=== PATIENT | male | born 1950 | race Caucasian/White ===

== ENCOUNTER 2016-04-19 10:19 | Inpatient (IN) ==
[2016-04-19 10:51] LABS: Basophils % 0.3 % (0.0-0.8); Eosinophils # 0.1 10*3/uL (0.0-0.87); Eosinophils % 0.6 % (0.00-10.9); Hematocrit 48.2 VOL% (42.0-52.0); Hemoglobin 15.9 GM/DL (14.0-18.0); Immature Granulocytes % 0.6 %; Immature Granulocytes Absolute 0.05 #; Lymphocytes # 2.2 10*3/uL (1.4-4.0); Lymphocytes % 24.7 % (21.2-54.2); Mean Corpuscular Hemoglobin 31 PG (27-34); Mean Corpuscular Volume 93.1 FL (87-102); Mean Platelet Volume 11.6 FL (9.6-12.0); Monocytes # 0.6 10*3/uL (0.11-0.8); Monocytes % 6.7 % (1.7-12.7); Neutrophils # 6.1 10*3/uL (1.4-7.4); Neutrophils % 67.1 % (38.7-73.9); Platelet Count 239 10*3/uL (130-400); Red Blood Count 5.18 10*6/uL (3.8-5.5); Red Cell Distribution Width 12.2 % (9.3-17.3); White Blood Count 9.1 10*3/uL (4.5-13.71)
[2016-04-19 11:12] LABS: Alanine Aminotransferase 39 U/L (16-61); Albumin 3.7 G/DL (3.4-5.0); Alkaline Phosphatase 68 U/L (45-117); Aspartate Amino Transferase 19 U/L (0-37); Blood Urea Nitrogen 8 MG/DL (7-18); Calcium 8.7 MG/DL (8.5-10.1); Glucose 317 MG/DL (74-106); Osmolality,Calculated 286.5 MOS/KG (273-304); Potassium 3.8 MMOL/L (3.5-5.1); Sodium 139 MMOL/L (136-145); Total Protein 6.4 G/DL (6.4-8.3); Troponin I Only < 0.015 NG/ML (0.00-0.045)
--- NOTE | 2016-04-19 11:13 | XRay Report ---
History short of breath The heart is mildly enlarged with mild upper lobe vascular prominence and minimal Hola B line in the lung bases No consolidative infiltrate is seen Impression: Minimal interstitial edema PROCEDURE INTERPRETED AT [facility] [place] DEPARTMENT OF RADIOLOGY Final Report Signed by: Dr. Earnestine Strickland
--- NOTE | 2016-04-19 11:50 | EKG Report ---
Stationary ECG Study [facility] ER Test Date: 04/19/2016 10:25:20 AM Pat Name: QUINTIN NORTON Department: Room: Gender: M Electrical Cad Designer: LIBAN : 1950 Requested by: Awais Booth Order Number: [id number] Reading MD: ANUJA PANTOJA Intervals [place] Rate: 138 P: 999 MN: 0 QRS: -18 QRSD: 99 T: 0 QT: 181 QTc: 262 Interpretive Statements ATRIAL FIBRILLATION WITH RAPID VENTRICULAR RESPONSE ANTEROSEPTAL MYOCARDIAL INFARCTION, OF INDETERMINATE AGE Electronically Signed On 04-19-16 17:57:18 OCEAN FISHING GUIDE by ANUJA PANTOJA [id number]
--- NOTE | 2016-04-19 12:05 | Emergency Department Note ---
Elicia Thompson [place], am scribing for, and in the presence of, Awais Booth Jr., MD 10:47. Leobardo Thompson Marvin Jr., MD, personally performed the services described in this documentation, ascribed by Jaret Rubi in my presence, and it is both accurate and complete . Arrival - Arrival Chief Complaint: Shortness of Breath ED Nursing Triage Note: c/o sob and a fib Mode of Arrival: Stretcher Limitations: No Limitations Source: Patient - History of Present Illness HPI Narrative: This is a 65 y/o male presenting to the ED with c/o SOB and atrial fibrillation. He states he has become increasingly SOB over the course of 5 months. Pt had a CT back in 2007 and had stents placed. He has not followed up with a automotive shop foreman in several years and he does not have a PCP. Pt has pedal edema and states this is the first time this has happened. Pt denies fever, chills, nausea, vomiting, diarrhea, abdominal pain, cough, and wheezing. He is currently a daily smoker and drinks occasionally. Consistency: constant Severity: moderate Allergies/Adverse Reactions: Allergies Allergy/AdvReac Type Severity Reaction Status Date / Time No Known Allergies Allergy Unverified 04/19/16 10:26 Home Medications: Home Medications Medication Instructions Recorded Confirmed Type No Known Home Medications [No 04/19/16 04/19/16 History Known Home Medications] Review of System - Review of System 12 point system: reviewed and no additional remarkable complaints except as stated - Review of System Constitutional: Absent: chills, fever, weakness Eyes: Absent: vision change Head/Ears/Nose/Throat: Absent: earache, nasal drainage Respiratory: Present: cough, wheezing Cardiovascular: Present: dyspnea on exertion. Absent: chest pain, syncope Gastrointestinal: Absent: abdominal pain, nausea, vomiting, diarrhea Genitourinary male: Absent: dysuria Musculoskeletal: Absent: arm pain, back pain Skin: Absent: rash Neurological: Absent: headache, weakness, numbness, confusion, abnormal gait, vertigo Psychiatric: Absent: anxiety Endocrine: Absent: fatigue Allergic/Immunologic: Absent: facial swelling Medical,Surgical,& Family Hx - Medical History Cardio: History of: CT (2007, patient had 2 stents placed at [facility]) - Surgical History Cardiac Surgeries: Sugical HX of: Cardiac Catheterization (2 stents) - Social History Smoking Status: Smoker, status unknown Frequency of Alcohol Use: Occasionally Type of Drug Use: None Exam Physical Examination: General: Well-developed well-nourished, no apparent distress. Head: Normocephalic, atraumatic. Eyes: PERRLA, EOMI. Nose: No obvious acute deformities or discharge. Mouth: No obvious acute injury. Neck: Full range of motion without obvious pain. No midline tender to palpation. Lymphatic: no significant lymphadenopathy noted. Lungs: Mild wheezing noted on exploration, no respiratory distress, Heart: Tachycardia and irregular Peripheral vascular: Moderate pitting edema noticed to the thighs bilaterally Abdomen: Soft nontender, nondistended, normal active bowel sounds. Skin: No obivous acute lesions noted Musculoskeletal: No gross deformities. Neurological: No focal findings, cranial nerves II through XII grossly normal. Psychiatric: Appropriate mood.. : Deferred Vital Signs: Vital Signs Temperature 96.7 F L 04/19/16 10:22 Pulse Rate 130 H 04/19/16 10:25 Respiratory Rate 22 04/19/16 10:25 Blood Pressure 123/103 04/19/16 10:22 O2 Sat by Pulse Oximetry 94 L 04/19/16 10:22 Course Course Narrative: Differential diagnoses, atrial fibrillation with congestive heart failure. Patient says this shortness of breath this been going on for several months. He was not even aware that his heart has been going fast. He has not been following up with any doctors., Other differential diagnosis would include pulmonary edema, reactive airway disease, COPD - Reevaluation(s) Reevaluation #1: Chest x-ray shows minimal pulmonary edema and no cardiomegaly. Workup for cardiac has been negative with the exception of atrial fibrillation with RVR. We'll discuss with the automotive shop foreman about what to do. I recommended admission. Time: 12:00 Reevaluation #2: I discussed this patient with Dr. Steven who accepts patient for admission. He said to give him 10 mg of diltiazem IV and then started him on an infusion of 5 mg per hour and let the nurses titrate it. Time: 12:04 Results - Labs CBC & BMP: 04/19/16 10:29 04/19/16 10:29 Lab Results: I have reviewed the patients labs Labs: Laboratory Tests 04/19/16 10:29 Chloride 96 L Carbon Dioxide 33 H Glucose 317 H Laboratory Tests 04/19/16 04/19/16 10:29 10:29 WBC 9.1 RBC 5.18 Hgb 15.9 Hct 48.2 MCV 93.1 MCH 31 MCHC 33.0 RDW 12.2 Plt Count 239 MPV 11.6 Neut % (Auto) 67.1 Lymph % (Auto) 24.7 Morgan % (Auto) 6.7 Eos % (Auto) 0.6 Baso % (Auto) 0.3 Neut # (Auto) 6.1 Lymph # (Auto) 2.2 Morgan # (Auto) 0.6 Eos # (Auto) 0.1 Baso # (Auto) 0.0 Immature Gran % 0.6 Nucleated RBC % 0.0 Immature Gran # 0.05 Nucleated RBCs # 0.00 Sodium 139 Potassium 3.8 Anion Gap 13.8 BUN 8 Creatinine 0.80 GFR Calculation 116 BUN/Creatinine Ratio 10.00 Calculated Osmolality 286.5 Calcium 8.7 Total Bilirubin 0.80 AST 19 ALT 39 Alkaline Phosphatase 68 Troponin I < 0.015 Total Protein 6.4 Albumin 3.7 Globulin 2.7 Albumin/Globulin Ratio 1.3 - EKG EKG results: interpreted by ERMD (C EKG, per me, heart rate 138, tachycardia, irregular heartbeat, no obvious P waves, narrow complex QRS complexes with no obvious acute ST changes. Impression atrial fibrillation with RVR) EKG shows: atrial fibrillation - Diagnostic Findings Procedure: Chest x-ray: report reviewed by me, image reviewed by me (minimal interstital edema, I personally reviewed the chest x-ray and agree ) Disposition Clinical Impression: New onset atrial fibrillation, Congestive heart failure, Hyperglycemia Case discussed with: patient, patient's family Disposition: Still a Patient Condition: Stable Time of Disposition: 12:05
[2016-04-19] MEDS ORDERED: DILTIAZEM 50 MG/10 ML VIAL IV STA ×2 (13:18→13:44)
[2016-04-19] MEDS ORDERED: DILTIAZEM 100 MG VIAL.ADD IV ONE (13:20)
[2016-04-19] MEDS ORDERED: SODIUM CHLORIDE 0.9% 100 ML IV ONE (13:20)
[2016-04-19] MEDS ORDERED: DILTIAZEM 50 MG/10 ML VIAL IV ONE (13:20)
[2016-04-19] MEDS: DILTIAZEM INJ 100 MG in SODIUM CHLORIDE 0.9% 100 ML IV SCH (13:31)
[2016-04-19] MEDS ORDERED: MAGNESIUM SULF RIDER 2 GM in PREMIX 1 EACH IV PRN (13:44)
[2016-04-19] MEDS ORDERED: DILTIAZEM INJ 100 MG in SODIUM CHLORIDE 0.9% 100 ML IV SCH (13:44)
[2016-04-19] MEDS ORDERED: MAGNESIUM SULF RIDER 4 GM in PREMIX 1 EACH IV PRN (13:44)
[2016-04-19] MEDS ORDERED: ONDANSETRON 4 MG/2 ML VIAL IV PRN (13:44)
[2016-04-19] MEDS ORDERED: DEXTROSE 50% 25 GM/50 ML VIAL IV PRN (13:44)
[2016-04-19] MEDS ORDERED: GLUCAGON 1 MG VIAL IM PRN (13:44)
[2016-04-19] MEDS: SPIRONOLACTONE 50 MG TABLET PO SCH (16:40)
[2016-04-19] MEDS: ASCORBIC ACID 500 MG TABLET PO SCH ×2 (16:40→21:04)
[2016-04-19] MEDS: INSULIN REGULAR 100 UNIT/ML SUBCUT SCH ×2 (17:44→21:04)
[2016-04-19] MEDS: ALBUTEROL/IPRATROPIUM 3 ML NEB RESP TX PRN (17:51)
[2016-04-20 05:45] LABS: Calcium 8.5 MG/DL (8.5-10.1); Magnesium 2.4 MG/DL (1.8-2.4); Osmolality,Calculated 287.7 MOS/KG (273-304); Potassium 3.7 MMOL/L (3.5-5.1)
[2016-04-20] MEDS: DILTIAZEM INJ 100 MG in SODIUM CHLORIDE 0.9% 100 ML IV SCH ×2 (07:45→15:40)
[2016-04-20] MEDS: ALBUTEROL/IPRATROPIUM 3 ML NEB RESP TX PRN ×2 (08:08→15:47)
[2016-04-20] MEDS: SPIRONOLACTONE 50 MG TABLET PO SCH (09:11)
[2016-04-20] MEDS: ASCORBIC ACID 500 MG TABLET PO SCH ×2 (09:11→20:20)
[2016-04-20] MEDS: INSULIN REGULAR 100 UNIT/ML SUBCUT SCH ×4 (09:11→20:20)
--- NOTE | 2016-04-20 11:27 | Cardiology History & Physical ---
Assessment and Plan (1) New onset atrial fibrillation Status: Acute Assessment and plan: 65-year-old male, history of remote AR, diabetes, was not recently. He presented with A. fib/RVR, for unknown duration. CHF, mild respiratory insufficiency, wheezing. -AF/RVR. Start metoprolol 50 mg twice a day. Wean Cardizem drip, once resting HR <110. -start Eliquis 5 mg bid. CHADSVASC 5. PPI. No h/o significant bleeding issues. -Echo -start ASA, statin for h/o CAD, AR -Check lipids, HbA1c. Start lisinopril 5 mg. Follow BMP/Mg -Plan for MIKEY/DCCV in AM if does not convert to SR. Discussed risks/benefits of managment options -cont nebs, still wheezes. I suspect COPD -card rehab consult, smoking cessation -SW consult. Has no insurance. Current Visit: Yes (2) Wheezing Status: Acute Current Visit: Yes (3) Congestive heart failure Status: Acute Current Visit: Yes (4) Hyperglycemia Status: Acute Current Visit: Yes History of Present Illness Chief complaint: AF/RVR History of present illness: Mr. Morgan is a 65 year old male with a history of remote AR, no documentation availabe, diabetes. He has not seen a physician in the last years, due to lack of insurance. He is a retired ditch worker. He noticed progressive lower extremity swelling, shortness of breath, dyspnea exertion for the past several weeks. This progressed to the point, where had to come to the emergency room for evaluation. He was in AF/RVR. Iv. cardizem was started. He denies CP. Did not snore up until a few months ago. He also has diabetes, was not watching blood sugars and he was not taking medications for that. He is a smoker. He also has a history of asthma, was not taking any inhalers. There is no documented COPD. Home Medications Medication Instructions Recorded Confirmed Type No Known Home Medications [No 04/19/16 04/19/16 History Known Home Medications] Allergies Allergy/AdvReac Type Severity Reaction Status Date / Time No Known Allergies Allergy Unverified 04/19/16 10:26 12 point system: reviewed and no additional remarkable complaints except as stated Medical,Surgical,& Family Hx - Medical History Cardio: History of: AR (2007, patient had 2 stents placed at [facility]) Endocrine: History of: Diabetes Mellitus (NIDDM) Respiratory: History of: Asthma - Surgical History Cardiac Surgeries: Sugical HX of: Cardiac Catheterization (2 stents) - Family History Family History: Reports;: Family Stroke (mother and father) - Social History Smoking Status: Smoker, status unknown Frequency of Alcohol Use: Occasionally Type of Drug Use: None Cardiology Physical Exam - Constitutional Vitals: Vital Signs Temp Pulse Resp BP Pulse Ox 97.9 F 101 H 20 122/74 95 04/20/16 08:00 04/20/16 08:10 04/20/16 08:10 04/20/16 08:00 04/20/16 08:10 Intake and Output 04/19/16 04/20/16 04/20/16 23:59 07:59 15:59 Intake Total 290 / 290 340 / 340 Output Total 275 / 275 300 / 300 Balance 40 / 40 Intake: IV 50 / 50 100 / 100 Cardizem Inj 100 mg In Ns 100 / 100 100 ml @ 5 MG/HR 5 mls/ hr IV TITRATE TARIK Rx#: [id number] Magnesium Sulf Michael 2 gm 50 / 50 /50 ml In Premix 1 Each @ 25 mls/hr IV .PER PROTOCOL PRN Rx#: [id number] Oral 240 / 240 240 / 240 Output: Urine 275 / 275 300 / 300 Other: Voiding Method Urinal Urinal Weight 100.244 kg Patient Weight 04/20/16 23:59 Weight 100.244 kg General appearance: normal weight - Head Head exam: Present: normal inspection, other (flushed face) - Eye Eye exam: Absent: conjunctival injection Pupils: Absent: dilated - ENT ENT exam: Present: normal exam - Neck Neck exam: Present: normal inspection, other (no jvd) - Respiratory Respiratory exam: Present: decreased breath sounds, prolonged expiratory phase, wheezes - Cardiovascular Cardiovascular exam: Present: irregular rhythm, systolic murmur, tachycardia, other (emphysematous chest) - GI/Abdominal GI/Abdominal exam: Present: normal bowel sounds - Extremities Exam Extremities exam: Present: normal inspection, normal capillary refill, edema (2+ ) - Back Exam Back exam: Present: normal inspection - Neurological Exam Neurological exam: Present: alert, oriented X3 - Psychiatric Psychiatric exam: Present: normal affect, normal mood - Skin Skin exam: Present: normal color, warm. Absent: cyanosis Result/EKG - Labs CBC & BMP: 04/19/16 10:29 04/20/16 03:37 Lab Results: I have reviewed the past 24 hour labs Labs: Laboratory Results - last 24 hr 04/19/16 04/19/16 04/19/16 13:54 14:04 16:29 Sodium Potassium Chloride Carbon Dioxide Anion Gap BUN Creatinine GFR Calculation BUN/Creatinine Ratio Glucose POC Glucose 268 H Calculated Osmolality Calcium Magnesium Troponin I < 0.015 < 0.015 04/19/16 04/19/16 04/19/16 16:49 19:27 19:46 Sodium Potassium Chloride Carbon Dioxide Anion Gap BUN Creatinine GFR Calculation BUN/Creatinine Ratio Glucose POC Glucose 308 H 321 H Calculated Osmolality Calcium Magnesium Troponin I < 0.015 04/20/16 04/20/16 03:37 08:13 Sodium 145 Potassium 3.7 Chloride 102 Carbon Dioxide 35 H Anion Gap 11.7 BUN 9 Creatinine 0.60 L GFR Calculation 136 BUN/Creatinine Ratio 15.00 Glucose 112 H POC Glucose 229 H Calculated Osmolality 287.7 Calcium 8.5 Magnesium 2.4 Troponin I - EKG EKG results: interpreted by me
[2016-04-20] MEDS: ASPIRIN EC 81 MG TABLET PO SCH (11:37)
[2016-04-20] MEDS: APIXABAN 5 MG TABLET PO SCH ×2 (11:37→20:20)
[2016-04-20] MEDS: METOPROLOL TARTRATE 50 MG TABLET PO SCH ×2 (11:37→20:20)
[2016-04-20] MEDS: FUROSEMIDE 20 MG/2 ML VIAL IV SCH (11:39)
[2016-04-20] MEDS: PANTOPRAZOLE 40 MG TABLET PO SCH (11:52)
--- NOTE | 2016-04-20 14:28 | ECHO Report ---
Jonathan Morgan Exam Date: 04/20/2016 11:30 Referring Physician: Technologist: Mary Alexis RDCS Age: 65 Ht (in): Wt (lb): Gender: M Exam Location: [facility] Echo Indications: Shortness of breath, Atrial fibrillation, hx Stents, Pedal edema, Hyperglycemia, Heart failure, unspecified, Nicotine dependence, unspecified, uncomplicated BP: / HR: Rhythm: Sinus Technical Quality: IMPRESSIONS Normal left ventricular size, with normal wall thickness, with mild global hypokinesis. Estimated left ventricle ejection fraction 50%. The endocardial borders are poorly visualized. Mildly dilated right ventricle, with normal systolic function, with mild pulmonary hypertension. Moderate biatrial enlargement. Mild mitral insufficiency. MEASUREMENTS (Male / Female) Normal Values 2D ECHO LV Diastolic Diameter PLAX 5.3 cm 4.2 - 5.9 / 3.9 - 5.3 cm LV Systolic Diameter PLAX 5.5 cm LV Fractional Shortening PLAX -4.0 % IVS Diastolic Thickness 1.0 cm 0.6 - 1.0 / 0.6 - 0.9 cm LVPW Diastolic Thickness 1.0 cm 0.6 - 1.0 / 0.6 - 0.9 cm RV Internal Dim ED PLAX 3.8 cm Aortic Root Diameter 3.6 cm LA Systolic Diameter LX 4.9 cm 3.0 - 4.0 / 2.7 - 3.8 cm DOPPLER TR Peak Velocity 276.0 cm/s TR Peak Gradient 30.5 mmHg FINDINGS Left Ventricle Normal left ventricular size, with normal wall thickness, with mild global hypokinesis. Estimated left ventricle ejection fraction 50%. The endocardial borders are poorly visualized. Unable to estimate diastolic function due to arrhythmia. Right Ventricle The right ventricle is mildly dilated, with normal systolic function. Right Atrium Moderately increased right atrial size. Left Atrium Moderately increased left atrial size. Mitral Valve Structurally normal mitral valve, with mild regurgitation, without stenosis. Aortic Valve Structurally normal aortic valve, without stenosis or insufficiency. Tricuspid Valve Morphologically normal tricuspid valve. Trace to mild tricuspid valve regurgitation. Tricuspid regurgitation velocities suggest a PAP of 30 mmHg + RA pressure. Pulmonic Valve Morphologically normal pulmonic valve without significant stenosis. There is no pulmonic regurgitation. Pericardium Normal pericardium without effusion. Aorta Normal ascending aorta dimension. Raphael Wilkins (Electronically Signed) Final Date: 20 April 2016 14:26
[2016-04-20] MEDS: metFORMIN 500 MG TABLET PO SCH (16:50)
[2016-04-20] MEDS ORDERED: PRAVASTATIN 20 MG TABLET PO SCH (21:00)
[2016-04-21 05:53] LABS: Basophils % 0.3 % (0.0-0.8); Eosinophils % 0.2 % (0.00-10.9); Hematocrit 47.9 VOL% (42.0-52.0); Hemoglobin 14.8 GM/DL (14.0-18.0); Immature Granulocytes % 0.4 %; Immature Granulocytes Absolute 0.04 #; Lymphocytes # 1.2 10*3/uL (1.4-4.0); Lymphocytes % 10.9 % (21.2-54.2); Mean Corpuscular HGB Conc 30.9 GM/DL (32-36); Mean Corpuscular Hemoglobin 30 PG (27-34); Mean Corpuscular Volume 97.8 FL (87-102); Mean Platelet Volume 11.8 FL (9.6-12.0); Monocytes # 0.9 10*3/uL (0.11-0.8); Monocytes % 7.8 % (1.7-12.7); Neutrophils % 80.4 % (38.7-73.9); Platelet Count 227 10*3/uL (130-400); Red Cell Distribution Width 12.6 % (9.3-17.3); White Blood Count 11.2 10*3/uL (4.5-13.71)
[2016-04-21 06:21] LABS: Calcium 8.6 MG/DL (8.5-10.1); Magnesium 2.1 MG/DL (1.8-2.4); Osmolality,Calculated 288.8 MOS/KG (273-304)
[2016-04-21 06:25] LABS: Risk Ratio 3.4; VLDL CHOLESTEROL 23.4 MG/DL
[2016-04-21] MEDS: INSULIN REGULAR 100 UNIT/ML SUBCUT SCH ×4 (09:05→20:45)
[2016-04-21] MEDS ORDERED: ALBUTEROL/IPRATROPIUM 3 ML NEB RESP TX STA (09:18)
[2016-04-21] MEDS: metFORMIN 500 MG TABLET PO SCH ×2 (09:41→17:15)
[2016-04-21] MEDS: FUROSEMIDE 20 MG/2 ML VIAL IV SCH (09:41)
[2016-04-21] MEDS: PANTOPRAZOLE 40 MG TABLET PO SCH (09:46)
[2016-04-21] MEDS: METOPROLOL TARTRATE 50 MG TABLET PO SCH ×2 (09:46→20:45)
[2016-04-21] MEDS: LISINOPRIL 5 MG TABLET PO SCH (09:46)
[2016-04-21] MEDS: ASPIRIN EC 81 MG TABLET PO SCH (09:46)
[2016-04-21] MEDS: APIXABAN 5 MG TABLET PO SCH ×2 (09:46→20:45)
[2016-04-21] MEDS: ASCORBIC ACID 500 MG TABLET PO SCH ×2 (09:47→20:45)
[2016-04-21] MEDS: ALBUTEROL/IPRATROPIUM 3 ML NEB RESP TX PRN (09:52)
[2016-04-21] MEDS: DILTIAZEM INJ 100 MG in SODIUM CHLORIDE 0.9% 100 ML IV SCH (14:40)
--- NOTE | 2016-04-21 14:43 | Physician Query Form ---
CLICK EDIT DOCUMENT TO SELECT QUERY ANSWER --> OK --> SIGN Mel Fulton RN, CCDS Certified Clinical Costumed Character Entertainer Director of Clinical Documentation W) [phone] (f) [phone] [email or web address] PROVIDERS: Make your selection(s) from the choices in EACH section by typing an "x" and enter comments in the comment section. Please use your independent medical judgment in providing your response. This request does not imply that any particular answer is desired or expected. CLINICAL INDICATORS: (Providers should not edit this section) Documented Acute CHF, Echo EF 35% with normal systolic function, diastolic function unable to be assessed due to arrhythmia, treated with IV Lasix Please provide further specificity regarding CHF. TYPE: ( ) Systolic ( ) Diastolic (x) Combined Systolic/Diastolic ( ) Other, please specify: ( ) Clinically unable to determine ( ) The patient does NOT have CHF COMMENTS: Use of terms such as suspected, likely, or probable (associated with a specific diagnosis that is being evaluated, monitored, or treated as if it exists) are acceptable and can be restated in the discharge summary if not ruled out. [facility] PSYCHIATRIC CENTERJoe
--- NOTE | 2016-04-21 14:53 | Cardiology Progress Note ---
Assessment and Plan (1) New onset atrial fibrillation Status: Acute Assessment and plan: 1. 65 year-old W exam smoker with COPD, NIDDM, CAD status post remote UT and stents [address] Esparza at [place], who is not checked his glucose and a long time and has 6-8 months of increasing dyspnea on exertion which became quite severe and he was noted to have atrial fibrillation with RVR 2. Continue Eliquis 5 mg twice a day given his significant cardiomyopathy risk 3. His rate is better controlled today but he is still in atrial fibrillation; plan MIKEY cardioversion today 4. Coreg 3.125 mg twice a day to promote sinus rhythm, reduce his risk of future UT 5. Change to high intensity statin with Lipitor 40 but of daily 6. Continuing to wheeze, likely related to his COPD; we discussed his need to actually stop all smoking, I will offer smoking cessation aids. I discussed the patient's the risks and benefits of MIKEY cardioversion including esophageal damage, reaction to medicine, aspiration. I have answered all of his questions regarding the procedure he is agreeable to proceed. ( Current Visit: Yes (2) Congestive heart failure Status: Acute Current Visit: Yes (3) Hyperglycemia Status: Acute Current Visit: Yes (4) Wheezing Status: Acute Current Visit: Yes Cardiology - PN: Subj Interval history: Mr. Morgan continued to have some wheezing and shortness of breath. No chest discomfort palpitations presyncope syncope. He is not having any dizziness or bleeding. He is getting bit hungry as he is nothing by mouth for his MIKEY today. Exam (Progress Note) - Constitutional Vitals: Period Temp Pulse Resp BP Sys/Parker Pulse Ox Last 24 Hr 96.9 F-98.9 F 85-119 18-20 104-141/57-84 3-100 General appearance: normal weight, no acute distress, disheveled - Head Head exam: Present: normal inspection, normocephalic, atraumatic - Neck Neck exam: Present: normal inspection - Respiratory Respiratory exam: Present: rales, wheezes - Cardiovascular Cardiovascular exam: Present: regular rate and rhythm. Absent: rubs, systolic murmur - GI/Abdominal GI/Abdominal exam: Present: soft. Absent: tenderness - Extremities Exam Extremities exam: Absent: edema - Neurological Exam Neurological exam: Present: alert, oriented X3 Result/EKG - Labs CBC & BMP: 04/21/16 04:32 04/21/16 04:32 Labs: Laboratory Results - last 24 hr 04/20/16 04/20/16 04/21/16 15:30 20:02 04:32 WBC RBC Hgb Hct MCV MCH MCHC RDW Plt Count MPV Neut % (Auto) Lymph % (Auto) Frio % (Auto) Eos % (Auto) Baso % (Auto) Neut # (Auto) Lymph # (Auto) Frio # (Auto) Eos # (Auto) Baso # (Auto) Immature Gran % Nucleated RBC % Immature Gran # Nucleated RBCs # Sodium Potassium Chloride Carbon Dioxide Anion Gap BUN Creatinine GFR Calculation BUN/Creatinine Ratio Glucose POC Glucose 214 H 326 H Hemoglobin A1c Calculated Osmolality Calcium Magnesium Triglycerides 117 Cholesterol 163 LDL Cholesterol 98.0 VLDL Cholesterol 23.4 HDL Cholesterol 48 Heart Disease Risk Ratio 3.40 04/21/16 04/21/16 04/21/16 04:32 04:32 04:32 WBC 11.2 RBC 4.90 Hgb 14.8 Hct 47.9 MCV 97.8 MCH 30 MCHC 30.9 L RDW 12.6 Plt Count 227 MPV 11.8 Neut % (Auto) 80.4 H Lymph % (Auto) 10.9 L Frio % (Auto) 7.8 Eos % (Auto) 0.2 Baso % (Auto) 0.3 Neut # (Auto) 9.0 H Lymph # (Auto) 1.2 L Frio # (Auto) 0.9 H Eos # (Auto) 0.0 Baso # (Auto) 0.0 Immature Gran % 0.4 Nucleated RBC % 0.0 Immature Gran # 0.04 Nucleated RBCs # 0.00 Sodium 144 Potassium 4.0 Chloride 101 Carbon Dioxide 32 Anion Gap 15.0 BUN 14 Creatinine 0.70 GFR Calculation 128 BUN/Creatinine Ratio 20.00 Glucose 138 H POC Glucose Hemoglobin A1c 10.0 H Calculated Osmolality 288.8 Calcium 8.6 Magnesium 2.1 Triglycerides Cholesterol LDL Cholesterol VLDL Cholesterol HDL Cholesterol Heart Disease Risk Ratio 04/21/16 04/21/16 07:59 11:42 WBC RBC Hgb Hct MCV MCH MCHC RDW Plt Count MPV Neut % (Auto) Lymph % (Auto) Frio % (Auto) Eos % (Auto) Baso % (Auto) Neut # (Auto) Lymph # (Auto) Frio # (Auto) Eos # (Auto) Baso # (Auto) Immature Gran % Nucleated RBC % Immature Gran # Nucleated RBCs # Sodium Potassium Chloride Carbon Dioxide Anion Gap BUN Creatinine GFR Calculation BUN/Creatinine Ratio Glucose POC Glucose 182 H 159 H Hemoglobin A1c Calculated Osmolality Calcium Magnesium Triglycerides Cholesterol LDL Cholesterol VLDL Cholesterol HDL Cholesterol Heart Disease Risk Ratio Specialty Discharge - Follow Up or Referrals
[2016-04-21] MEDS ORDERED: PROPOFOL 200 MG/20 ML VIAL IV ONE (15:00)
[2016-04-21] MEDS ORDERED: AMIODARONE 150 MG/3 ML VIAL ONE (15:11)
[2016-04-21] MEDS ORDERED: AMIODARONE INJ 150 MG in DEXTROSE 5% 100 ML IV ONE (15:14)
--- NOTE | 2016-04-21 15:14 | Event Note ---
Brief MIKEY summary: 1. Borderline to normal LV function 2. No evidence of thrombus Failed cardioversion attempt 3 at 300, 360, and 360 J respectively
[2016-04-21] MEDS ORDERED: AMIODARONE INJ 450 MG in DEXTROSE 5% 241 ML IV SCH (15:30)
--- NOTE | 2016-04-21 15:33 | Anesthesia ---
Anesthesia Post OP - Post Ansesthetic Evaluation Patient seen in post op: Yes Resp: within normal limits CV: within normal limits Mental: within normal limits Temp: within normal limits Gnns-Cv-Nvghyrhyl: within normal limits Nausea and Vomiting: within normal limits Pain: within normal limits
[2016-04-21] MEDS ORDERED: DEXTROSE 50% 25 GM/50 ML VIAL IV PRN (15:59)
[2016-04-21] MEDS ORDERED: GLUCAGON 1 MG VIAL IM PRN (15:59)
[2016-04-21] MEDS: CARVEDILOL 3.125 MG TABLET PO SCH (20:45)
[2016-04-21] MEDS: ATORVASTATIN 40 MG TABLET PO SCH (20:45)
[2016-04-21] MEDS: AMIODARONE INJ 450 MG in DEXTROSE 5% 241 ML IV SCH (22:00)
[2016-04-22 04:46] LABS: Basophils % 0.2 % (0.0-0.8); Eosinophils % 0.1 % (0.00-10.9); Hematocrit 46.3 VOL% (42.0-52.0); Hemoglobin 14.1 GM/DL (14.0-18.0); Immature Granulocytes % 0.5 %; Immature Granulocytes Absolute 0.05 #; Lymphocytes # 1.1 10*3/uL (1.4-4.0); Lymphocytes % 9.9 % (21.2-54.2); Mean Corpuscular HGB Conc 30.5 GM/DL (32-36); Mean Corpuscular Hemoglobin 30 PG (27-34); Mean Corpuscular Volume 98.5 FL (87-102); Mean Platelet Volume 11.9 FL (9.6-12.0); Monocytes # 0.9 10*3/uL (0.11-0.8); Monocytes % 8.1 % (1.7-12.7); Neutrophils # 8.8 10*3/uL (1.4-7.4); Neutrophils % 81.2 % (38.7-73.9); Platelet Count 265 10*3/uL (130-400); Red Cell Distribution Width 12.7 % (9.3-17.3); White Blood Count 10.9 10*3/uL (4.5-13.71)
[2016-04-22 05:27] LABS: Albumin 3.4 G/DL (3.4-5.0); Bilirubin,Total 0.6 MG/DL (0.2-1.0); Calcium 8.3 MG/DL (8.5-10.1); Calcium 8.4 MG/DL (8.5-10.1); Magnesium 2.2 MG/DL (1.8-2.4); Osmolality,Calculated 291.3 MOS/KG (273-304); Osmolality,Calculated 293.1 MOS/KG (273-304); Potassium 4.2 MMOL/L (3.5-5.1); Potassium 4.3 MMOL/L (3.5-5.1)
--- NOTE | 2016-04-22 07:30 | EKG Report ---
Stationary ECG Study [facility] Test Date: 04/22/2016 7:29:25 AM Pat Name: QUINTIN NORTON Department: Room: 272 Gender: M Teacher Private: : 1950 Requested by: Bebo Evans Order Number: [id number] Reading MD: ALEKSANDER LOPEZ Intervals [place] Rate: 131 P: 999 [place]: 0 QRS: -70 QRSD: 100 T: 34 QT: 273 QTc: 350 Interpretive Statements ATRIAL FIBRILLATION WITH RAPID VENTRICULAR RESPONSE MARKED LEFT AXIS DEVIATION LOW QRS VOLTAGE IN PRECORDIAL LEADS INCOMPLETE RIGHT BUNDLE BRANCH BLOCK PROBABLE ANTEROSEPTAL MYOCARDIAL INFARCTION, PROBABLY OLD Electronically Signed On 04-22-16 07:44:08 PROJECT SURVEYOR by ALEKSANDER LOPEZ [email or web address]
[2016-04-22] MEDS: ALBUTEROL/IPRATROPIUM 3 ML NEB RESP TX PRN ×2 (07:32→16:21)
[2016-04-22] MEDS: INSULIN REGULAR 100 UNIT/ML SUBCUT SCH ×4 (08:43→21:46)
[2016-04-22] MEDS: METOPROLOL TARTRATE 50 MG TABLET PO SCH ×2 (08:44→21:47)
[2016-04-22] MEDS: ASPIRIN EC 81 MG TABLET PO SCH (08:44)
[2016-04-22] MEDS: PANTOPRAZOLE 40 MG TABLET PO SCH (08:44)
[2016-04-22] MEDS: APIXABAN 5 MG TABLET PO SCH ×2 (08:44→21:48)
[2016-04-22] MEDS: CARVEDILOL 3.125 MG TABLET PO SCH ×2 (08:44→21:48)
[2016-04-22] MEDS: metFORMIN 500 MG TABLET PO SCH ×2 (08:44→16:15)
[2016-04-22] MEDS: LISINOPRIL 5 MG TABLET PO SCH (08:44)
[2016-04-22] MEDS: ASCORBIC ACID 500 MG TABLET PO SCH ×2 (08:44→21:47)
--- NOTE | 2016-04-22 09:22 | XRay Report ---
Referring Physician: Bebo Martinez Exam: XR chest 1V portable Date: April 22, 2016 at 8:51 AM Reason: Wheezing Comparison: Chest one view portable April 19, 2016 Findings: The cardiac silhouette is again mildly enlarged. There are minimal opacities at the right lung base, which are favored to represent atelectasis. Pneumonia is felt less likely but is difficult to exclude. There is also questionable minimal pulmonary edema. No pneumothorax or definite pleural fluid is identified. The osseous structures appear stable. Impression: 1. Cardiomegaly. 2. There is questionable minimal pulmonary edema as before. There are also now minimal opacities at the right lung base. These opacities likely represent atelectasis, but pneumonia is difficult to exclude. PROCEDURE INTERPRETED AT [facility] DEPARTMENT OF RADIOLOGY Final Report Signed by: Dr. Tyler Wilhelm
[2016-04-22] MEDS: AMIODARONE INJ 450 MG in DEXTROSE 5% 241 ML IV SCH ×2 (13:39→16:09)
[2016-04-22] MEDS ORDERED: MEPERIDINE 50 MG/1 ML VIAL ONE (16:59)
[2016-04-22] MEDS ORDERED: NALOXONE 0.4 MG/ML VIAL ONE (16:59)
[2016-04-22] MEDS ORDERED: MIDAZOLAM 10 MG/2 ML VIAL ONE (16:59)
[2016-04-22] MEDS ORDERED: FLUMAZENIL 0.5 MG/5 ML VIAL IV ONE (17:00)
[2016-04-22] MEDS ORDERED: ETOMIDATE 20 MG/10 ML VIAL IV ONE (17:27)
[2016-04-22] MEDS ORDERED: SUCCINYLCHOLINE 200 MG/10 ML VIAL ONE (17:28)
--- NOTE | 2016-04-22 17:31 | Cardiology Progress Note ---
I, Isabel Ferguson RN, am scribing for, and in the presence of, Bebo Martinez MD 17:27. Assessment and Plan - Time spent with patient Time spent with patient: Less than 30 minutes (1) New onset atrial fibrillation Status: Acute Assessment and plan: 04/21/16 1. 65 year-old W exam smoker with COPD, NIDDM, CAD status post remote SD and stents [address] Esparza at [place], who is not checked his glucose and a long time and has 6-8 months of increasing dyspnea on exertion which became quite severe and he was noted to have atrial fibrillation with RVR 2. Continue Eliquis 5 mg twice a day given his significant cardiomyopathy risk 3. His rate is better controlled today but he is still in atrial fibrillation; plan MIKEY cardioversion today 4. Coreg 3.125 mg twice a day to promote sinus rhythm, reduce his risk of future SD 5. Change to high intensity statin with Lipitor 40 but of daily 6. Continuing to wheeze, likely related to his COPD; we discussed his need to actually stop all smoking, I will offer smoking cessation aids. 04/22/16 1. Patient remains in atrial fibrillation. Rates in the 130s. 2. Continued wheezing. He is receiving breathing treatments. 3. Discussed need for patient to stop smoking. 4. Awaiting BNP results. 5. Given he is now loaded with amiodarone since yesterday on infusion, plan reattempt cardioversion; MIKEY yesterday showed no thrombus with borderline normal LV function Current Visit: Yes (2) Congestive heart failure Status: Acute Current Visit: Yes (3) Hyperglycemia Status: Acute Current Visit: Yes (4) Wheezing Status: Acute Current Visit: Yes Cardiology - PN: Subj Interval history: Mr. Morgan reports he is feeling okay and smiling. He continues to be in atrial fibrillation with increased ventricular response. Rates in the 130s this morning. The nursing staff tells me that he has had decreased O2 saturations with readings as low as 89% on oxygen. He continues to have wheezing and mild shortness of breath. He is receiving breathing treatments. He denies any chest discomfort, palpitations, dizziness, presyncope, syncope. We obtained a chest x-ray this morning which now shows minimal opacities in the right lung base, likely atelectasis, but difficult to exclude pneumonia. Exam (Progress Note) - Constitutional Vitals: Period Temp Pulse Resp BP Sys/Parker Pulse Ox Last 24 Hr 98.2 F-99.2 F 80-134 18-20 104-121/57-80 86-99 General appearance: no acute distress, over weight, disheveled - Head Head exam: Present: normal inspection, normocephalic - Eye Eye exam: Absent: conjunctival injection, periorbital swelling, scleral icterus Pupils: Absent: dilated - ENT ENT exam: Present: normal exam, normal external ear exam - Neck Neck exam: Present: normal inspection. Absent: tenderness - Respiratory Respiratory exam: Present: rales, wheezes - Cardiovascular Cardiovascular exam: Present: irregular rhythm. Absent: rubs, systolic murmur - GI/Abdominal GI/Abdominal exam: Present: soft. Absent: tenderness - Extremities Exam Extremities exam: Present: other (peripheral pulses present and palpable). Absent: edema - Back Exam Back exam: Present: normal inspection. Absent: vertebral tenderness - Neurological Exam Neurological exam: Present: alert, oriented X3, other (grossly intact, no resting or essential tremor) - Psychiatric Psychiatric exam: Present: normal affect, normal mood - Skin Skin exam: Present: warm, dry, intact Result/EKG - Labs CBC & BMP: 04/22/16 03:46 04/22/16 03:46 Lab Results: I have reviewed the past 24 hour labs Labs: Laboratory Results - last 24 hr 04/21/16 04/21/16 04/21/16 11:42 16:39 19:11 WBC RBC Hgb Hct MCV MCH MCHC RDW Plt Count MPV Neut % (Auto) Lymph % (Auto) [place] % (Auto) Eos % (Auto) Baso % (Auto) Neut # (Auto) Lymph # (Auto) [place] # (Auto) Eos # (Auto) Baso # (Auto) Immature Gran % Nucleated RBC % Immature Gran # Nucleated RBCs # Sodium Potassium Chloride Carbon Dioxide Anion Gap BUN Creatinine GFR Calculation BUN/Creatinine Ratio Glucose POC Glucose 159 H 213 H 305 H Calculated Osmolality Calcium Magnesium Total Bilirubin AST ALT Alkaline Phosphatase Total Protein Albumin Globulin Albumin/Globulin Ratio 04/22/16 04/22/16 04/22/16 03:46 03:46 03:46 WBC 10.9 RBC 4.70 Hgb 14.1 Hct 46.3 MCV 98.5 MCH 30 MCHC 30.5 L RDW 12.7 Plt Count 265 MPV 11.9 Neut % (Auto) 81.2 H Lymph % (Auto) 9.9 L [place] % (Auto) 8.1 Eos % (Auto) 0.1 Baso % (Auto) 0.2 Neut # (Auto) 8.8 H Lymph # (Auto) 1.1 L [place] # (Auto) 0.9 H Eos # (Auto) 0.0 Baso # (Auto) 0.0 Immature Gran % 0.5 Nucleated RBC % 0.0 Immature Gran # 0.05 Nucleated RBCs # 0.00 Sodium 141 142 Potassium 4.2 4.3 Chloride 99 99 Carbon Dioxide 35 H 34 H Anion Gap 11.2 13.3 BUN 17 17 Creatinine 0.90 0.90 GFR Calculation 115 115 BUN/Creatinine Ratio 18.00 18.00 Glucose 263 H 266 H POC Glucose Calculated Osmolality 291.3 293.1 Calcium 8.3 L 8.4 L Magnesium 2.2 Total Bilirubin 0.60 AST 13 ALT 26 Alkaline Phosphatase 55 Total Protein 6.0 L Albumin 3.4 Globulin 2.6 Albumin/Globulin Ratio 1.3 04/22/16 07:24 WBC RBC Hgb Hct MCV MCH MCHC RDW Plt Count MPV Neut % (Auto) Lymph % (Auto) [place] % (Auto) Eos % (Auto) Baso % (Auto) Neut # (Auto) Lymph # (Auto) [place] # (Auto) Eos # (Auto) Baso # (Auto) Immature Gran % Nucleated RBC % Immature Gran # Nucleated RBCs # Sodium Potassium Chloride Carbon Dioxide Anion Gap BUN Creatinine GFR Calculation BUN/Creatinine Ratio Glucose POC Glucose 232 H Calculated Osmolality Calcium Magnesium Total Bilirubin AST ALT Alkaline Phosphatase Total Protein Albumin Globulin Albumin/Globulin Ratio - EKG EKG results: interpreted by me EKG shows: atrial fibrillation (with increased ventricular response) Specialty Discharge - Follow Up or Referrals Michelle Thompson Randall Scott, MD, personally performed the services described in this documentation, ascribed by Isabel Ferguson RN in my presence, and it is both accurate and complete [id number] .
--- NOTE | 2016-04-22 17:32 | ECHO Report ---
Jonathan Morgan Exam Date: 04/21/2016 14:33 Referring Physician: Technologist: Mary Alexis ENDY Age: 65 Ht (in): Wt (lb): Gender: M Exam Location: [facility] Echo Pre-op Dx: for cardioversion Post-op Dx: BP: / HR: Rhythm: Sinus Technical Quality: Specimens Taken Devices Implanted Medications Complications Estimated Blood Loss Proc. Components IMPRESSIONS Gross left atrial enlargement Borderline LV systolic function with ejection fraction approximate estimated 50% No thrombus noted Weakly positive bubble study (5-10 bubbles crossed late after abdominal compression) 1+ mitral and tricuspid regurgitation Modest atherosclerosis in the thoracic aorta MEASUREMENTS (Male / Female) Normal Values FINDINGS Left Ventricle Right Ventricle Right Atrium Left Atrium LA [place] IA Septum Mitral Valve Aortic Valve Tricuspid Valve Pulmonic Valve Pericardium Aorta Bebo Martinez (Electronically Signed) Final Date: 22 April 2016 17:30
--- NOTE | 2016-04-22 17:34 | Event Note ---
Procedure: DC cardioversion Consent: Signed Sedation: Patient given Versed 2 mg and and 50 mg of Demerol intravenously prior to cardioversion. Procedure: Patient successfully cardioverted at 360 J after sedation Addendum: KASSIDY GONZALEZ was called after procedure given continued apnea despite Romazicon and Narcan given IV. He developed sinus bradycardia with heart rate of 40 beats minute; I gave epinephrine 1 mg was suspect and heart rate increased to 100 and reconverted back to atrial fibrillation. The patient was intubated by Dr. Guajardo, and re-cardioverted to sinus rhythm but again reverted to atrial fibrillation prior to transfer to ICU. He maintained pulse throughout.
[2016-04-22] MEDS ORDERED: PROPOFOL 1,000 MG/100 ML BOTTLE IV ONE (17:42)
--- NOTE | 2016-04-22 18:01 | Event Note ---
Called to room for Code Blue. Pt found apneic with good central pulse. Pt bagged for appx 8-10 mins without return of spont resp or resp to painful stimuli. decision made in intubate. Intubated with M4 7.5 pt gagged upon touching cords with tube and lost visual of cords advanced ET tube and started bagging with poor color change and no b/l breath sounds. pulled tube bagged back up from 89-95 sats and gave etomidate and succ. Intubated without complication on second attempt with meds.
[2016-04-22] MEDS ORDERED: MIDAZOLAM 2 MG/2 ML VIAL ONE (18:19)
--- NOTE | 2016-04-22 18:22 | XRay Report ---
Portable chest. Indication: Endotracheal tube placement. Respiratory failure. Comparison: April 22, 2016 at 8:53 AM. The heart is borderline enlarged. An endotracheal tube has been placed. Its distal tip is approximately 2.5 CM above the beck. The pulmonary vasculature is prominent. No consolidation, pneumothorax, or pleural effusion. Impression: Mild cardiomegaly and venous congestion. Satisfactory endotracheal tube placement. PROCEDURE INTERPRETED AT [facility] DEPARTMENT OF RADIOLOGY Final Report Signed by: Dr. Olga Strickland
[2016-04-22] MEDS ORDERED: AMIODARONE 450 MG/9 ML VIAL IV ONE (18:27)
[2016-04-22] MEDS ORDERED: AMIODARONE 150 MG/3 ML VIAL ONE (18:28)
[2016-04-22] MEDS ORDERED: AMIODARONE INJ 150 MG in DEXTROSE 5% 100 ML IV ONE (18:28)
[2016-04-22] MEDS ORDERED: MIDAZOLAM 2 MG/2 ML VIAL IV ONE (18:30)
[2016-04-22 18:39] LABS: ABG Base Excess 7.5 MMOL/L (-2.5-2.5); ABG HCO3 36.2 MMOL/L (20-26); ABG Oxygen Saturation 99.5 % (95-100); ABG PH 7.325 (7.35-7.45); ABG PO2 444.4 MM HG (80-95); ABG TCO2 38.4 MMOL/L (23-27); Allen Test Positive; Pt O2 Delivery Device Ventilator
--- NOTE | 2016-04-22 18:45 | Event Note ---
Procedure: DC cardioversion at 360 J was successful in converting to normal sinus rhythm Sedation: Patient on propofol intubated on the ventilator
[2016-04-22] MEDS ORDERED: SODIUM CHLORIDE 0.9% 250 ML IV ONE (18:46)
[2016-04-22] MEDS: PHENYLEPHRINE DRIP 40 MG/250 ML PREMIX IV SCH (18:58)
[2016-04-22] MEDS: PROPOFOL 1,000 MG/100 ML BOTTLE IV SCH (19:00)
[2016-04-22] MEDS ORDERED: VECURONIUM 10 MG VIAL IV PRN (19:09)
[2016-04-22 20:26] LABS: ABG HCO3 32.6 MMOL/L (20-26); ABG Oxygen Saturation 98.7 % (95-100); ABG PCO2 49.7 MM HG (35-48); ABG PH 7.435 (7.35-7.45); ABG TCO2 34.1 MMOL/L (23-27); Allen Test Positive; Pt O2 Delivery Device Ventilator
--- NOTE | 2016-04-22 20:55 | XRay Report ---
Portable chest. Indication: Nasogastric tube placement. The distal tip of the nasogastric tube projects off the field of the film, well beyond the GE junction, probably at the level of the antrum of the stomach. PROCEDURE INTERPRETED AT [facility] DEPARTMENT OF RADIOLOGY Final Report Signed by: Dr. Olga Strickland
[2016-04-22 20:57] LABS: Apearance,Urine CLOUDY (Clear); Bilirubin,Urine Negative (Negative); Blood, Urine Negative (Negative); Glucose,Urine (UA) >=500 mg/dL (Negative); Hyaline Casts,Urine 17 /LPF (0-3); Ketones,Urine Negative (Negative); Mucus,Urine Occasional /LPF (Occasional); Nitrite,Urine Negative (Negative); Protein,Urine >=500 MG/DL; RBC,Urine 28 /HPF (0-4); Urine Color Yellow (Yellow); Urine Specific Gravity 1.037 (1.001-1.035); Urine Urobilinogen < 2.0 EU/DL (0.2-1.0); WBC,Urine 15 /HPF (0-6)
[2016-04-22] MEDS: ATORVASTATIN 40 MG TABLET PO SCH (21:47)
[2016-04-23] MEDS: PROPOFOL 1,000 MG/100 ML BOTTLE IV SCH ×2 (00:03→05:01)
[2016-04-23 04:18] LABS: Allen Test Positive; Pt O2 Delivery Device Ventilator
[2016-04-23 04:19] LABS: ABG Base Excess 8.8 MMOL/L (-2.5-2.5); ABG HCO3 32.5 MMOL/L (20-26); ABG Oxygen Saturation 97.9 % (95-100); ABG PCO2 40.9 MM HG (35-48); ABG PH 7.518 (7.35-7.45); ABG PO2 98.1 MM HG (80-95); ABG TCO2 33.8 MMOL/L (23-27)
[2016-04-23 04:40] LABS: Basophils % 0.3 % (0.0-0.8); Eosinophils # 0.1 10*3/uL (0.0-0.87); Eosinophils % 0.4 % (0.00-10.9); Immature Granulocytes % 0.4 %; Immature Granulocytes Absolute 0.05 #; Lymphocytes # 2.1 10*3/uL (1.4-4.0); Lymphocytes % 17.9 % (21.2-54.2); Mean Corpuscular HGB Conc 31.1 GM/DL (32-36); Mean Corpuscular Hemoglobin 30 PG (27-34); Mean Corpuscular Volume 95.7 FL (87-102); Mean Platelet Volume 11.8 FL (9.6-12.0); Monocytes # 1.2 10*3/uL (0.11-0.8); Monocytes % 10.2 % (1.7-12.7); Neutrophils # 8.4 10*3/uL (1.4-7.4); Neutrophils % 70.8 % (38.7-73.9); Platelet Count 221 10*3/uL (130-400); Red Cell Distribution Width 12.7 % (9.3-17.3); White Blood Count 11.9 10*3/uL (4.5-13.71)
[2016-04-23 05:19] LABS: Calcium 8.4 MG/DL (8.5-10.1); Osmolality,Calculated 291.8 MOS/KG (273-304); Potassium 3.4 MMOL/L (3.5-5.1)
--- NOTE | 2016-04-23 07:03 | Pulmonology Consult Note ---
Assessment and Plan (1) Diabetes mellitus Status: Acute Assessment and plan: Currently on sliding scale insulin. I'm going to add Solu-Medrol. We will need to add some long-acting insulin. Current Visit: Yes (2) COPD with acute exacerbation Status: Acute Assessment and plan: He's been wheezing since admission. Long-term smoker. Apparent chronic hypercarbia. I suspect he has pretty severe COPD. We'll treat for exacerbation with antibiotics steroids bronchodilators. Not clear what he has a bronchopneumonia in the right lower lobe versus congestive heart failure. His white blood count is 11,900. He does not have any fever. Current Visit: Yes (3) New onset atrial fibrillation Status: Acute Assessment and plan: He had cardioversion yesterday and converted to sinus rhythm but has converted back to atrial fibrillation. Echo has shown borderline normal LV function and no clots no valvular disease. Patient is on eliquis. Current Visit: Yes (4) Congestive heart failure Status: Acute Assessment and plan: Probably mild congestive heart failure. Defer to cardiology. Current Visit: Yes History of Present Illness Chief complaint: respiratory failure History of present illness: Mr. Morgan is a 65 year old male who was admitted 4 days ago with atrial fibrillation and rapid ventricular response and increased shortness of breath. He is a regular smoker. History of asthma. She's been on bronchodilators. He was cardioverted yesterday afternoon and apparently had severe bradycardia apnea and had to be intubated at that point. He's been on the ventilator overnight and his blood gases look better. However he still is having a good bit of bronchospasm. I suspect he has significant COPD. He has hypercarbia probably chronic respiratory failure from his lung disease. His echocardiogram showed borderline normal LV function. His BNP was only mildly elevated at 243. His chest x-ray showed a right lower lobe infiltrate questionable whether this is congestive heart failure or bronchopneumonia. Home Medications Medication Instructions Recorded Confirmed Type No Known Home Medications [No 04/19/16 04/19/16 History Known Home Medications] Allergies Allergy/AdvReac Type Severity Reaction Status Date / Time No Known Allergies Allergy Unverified 04/19/16 10:26 ROS unobtainable: due to endotracheal tube Exam (Pulmonay) H&P - Constitutional Vitals: Period Temp Pulse Resp BP Sys/Parker Pulse Ox Last 24 Hr 97.7 F-98.8 F 71-134 12-28 73-132/53-104 89-100 Exam: Pulse around 105 and irregular. Vital signs otherwise normal. Patient is on the ventilator moving his eyes and appears to be responsive. Pupils react to light. Orotracheal tube in place. Neck supple no bruits. Chest shows bilateral expiratory wheezes and he is fairly tight. Heart rate is around 105 and irregular. I do not hear any murmurs. Abdomen soft nontender no masses. Extremities no clubbing cyanosis or edema. Calves nontender. Medical,Surgical,& Family Hx - Medical History Cardio: History of: [place] (2007, patient had 2 stents placed at [facility]) Endocrine: History of: Diabetes Mellitus (NIDDM) Respiratory: History of: Asthma - Surgical History Cardiac Surgeries: Sugical HX of: Cardiac Catheterization (2 stents) - Family History Family History: Reports;: Family Stroke (mother and father) - Social History Smoking Status: Current every day smoker Frequency of Alcohol Use: Occasionally Type of Drug Use: None Results - Labs CBC & BMP: 04/23/16 03:24 04/23/16 03:24 Lab Results: I have reviewed the past 24 hour labs - Diagnostic Findings Procedure: Chest x-ray: image reviewed by me (ET tube good location. Right lower lobe infiltrate that was not present 4 days ago.) Specialty Discharge - Follow Up or Referrals
--- NOTE | 2016-04-23 07:06 | XRay Report ---
XR chest 1V portable Indication: Aspiration. Ventilatory support. Chest one view: Defibrillator pads are in the [id number]. Compared yesterday, endotracheal tube appears unchanged. Borderline cardiomegaly is stable as well. There is continued bibasilar infiltrates with no new opacities identified. Impression: Little significant change. PROCEDURE INTERPRETED AT [facility] DEPARTMENT OF RADIOLOGY Final Report Signed by: Nigel Grace M.D.
[2016-04-23] MEDS: DORNASE ALFA 2.5 MG/2.5 ML VIAL RESP TX SCH ×2 (07:53→19:00)
[2016-04-23] MEDS: ASPIRIN EC 81 MG TABLET PO SCH (08:05)
[2016-04-23] MEDS: metFORMIN 500 MG TABLET PO SCH ×2 (08:05→16:31)
[2016-04-23] MEDS: ASCORBIC ACID 500 MG TABLET PO SCH ×2 (08:05→21:52)
[2016-04-23] MEDS: PANTOPRAZOLE 40 MG TABLET PO SCH (08:05)
[2016-04-23] MEDS: methylPREDNISolone SOD SUC 40 MG/1 ML VIAL IV SCH ×3 (08:05→23:05)
[2016-04-23] MEDS: LISINOPRIL 5 MG TABLET PO SCH (08:05)
[2016-04-23] MEDS: CARVEDILOL 3.125 MG TABLET PO SCH ×2 (08:05→21:53)
[2016-04-23] MEDS: APIXABAN 5 MG TABLET PO SCH ×2 (08:05→21:52)
[2016-04-23] MEDS: PIPERACILLIN/TAZOBACTAM 3,375 MG in SODIUM CHLORIDE 0.9% 100 ML IV SCH ×3 (08:05→23:05)
[2016-04-23] MEDS: METOPROLOL TARTRATE 50 MG TABLET PO SCH ×2 (08:05→21:52)
--- NOTE | 2016-04-23 08:07 | Event Note ---
Procedure: DC cardioversion Sedation: Patient on propofol Description: Shock applied 2 at 360 J (first shock failed to convert, the second was successful with increase chest compression to decrease AP window)
--- NOTE | 2016-04-23 08:13 | Cardiology Progress Note ---
Assessment and Plan (1) New onset atrial fibrillation Status: Acute Assessment and plan: 04/21/16 1. 65 year-old W exam smoker with COPD, NIDDM, CAD status post remote [place] and stents [address] Esparza at [place], who is not checked his glucose and a long time and has 6-8 months of increasing dyspnea on exertion which became quite severe and he was noted to have atrial fibrillation with RVR 2. Continue Eliquis 5 mg twice a day given his significant cardiomyopathy risk 3. His rate is better controlled today but he is still in atrial fibrillation; plan MIKEY cardioversion today 4. Coreg 3.125 mg twice a day to promote sinus rhythm, reduce his risk of future MS 5. Change to high intensity statin with Lipitor 40 but of daily 6. Continuing to wheeze, likely related to his COPD; we discussed his need to actually stop all smoking, I will offer smoking cessation aids. 04/22/16 1. Patient remains in atrial fibrillation. Rates in the 130s. 2. Continued wheezing. He is receiving breathing treatments. 3. Discussed need for patient to stop smoking. 4. Awaiting BNP results. 5. Given he is now loaded with amiodarone since yesterday on infusion, plan reattempt cardioversion; MIKEY yesterday showed no thrombus with borderline normal LV function April 23 uptake: 1. Mr. Morgan required intubation yesterday afternoon due to apnea after sedation for cardioversion; he is being weaned on the ventilator followed by Dr. Damian; he has modest respiratory alkalosis morning, with good oxygenation 2. Reverted to atrial fibrillation earlier this morning; I can cardiovert him back to normal sinus rhythm at 360 J given he was already intubated and sedated 3. Continue amiodarone to promote normal sinus rhythm 4. Sleep medicine consulted given he very likely has NAN; his reports she' s witnessed apnea while sleeping and he has daytime somnolence 5. Smoking cessation will be very important for his prognosis 6. Continue anticoagulation with Eliquis Current Visit: Yes (2) Congestive heart failure Status: Acute Current Visit: Yes (3) Hyperglycemia Status: Acute Current Visit: Yes (4) Wheezing Status: Acute Current Visit: Yes Cardiology - PN: Subj Interval history: Mr. Morgan is awake though intubated and sedated on to prevent. He converted back to atrial fibrillation early this morning. He has been hemodynamically stable. Exam (Progress Note) - Constitutional Vitals: Period Temp Pulse Resp BP Sys/Parker Pulse Ox Last 24 Hr 97.7 F-98.8 F 71-128 12-28 73-132/53-104 92-100 General appearance: no acute distress, over weight - Head Head exam: Present: normal inspection, normocephalic, atraumatic - Neck Neck exam: Present: normal inspection - Respiratory Respiratory exam: Present: prolonged expiratory phase - Cardiovascular Cardiovascular exam: Present: irregular rhythm, tachycardia - GI/Abdominal GI/Abdominal exam: Present: soft. Absent: tenderness - Extremities Exam Extremities exam: Absent: edema Result/EKG - Labs CBC & BMP: 04/23/16 03:24 04/23/16 03:24 Labs: Laboratory Results - last 24 hr 04/22/16 04/22/16 04/22/16 08:22 12:04 15:16 WBC RBC Hgb Hct MCV MCH MCHC RDW Plt Count MPV Neut % (Auto) Lymph % (Auto) [place] % (Auto) Eos % (Auto) Baso % (Auto) Neut # (Auto) Lymph # (Auto) [place] # (Auto) Eos # (Auto) Baso # (Auto) Immature Gran % Nucleated RBC % Immature Gran # Nucleated RBCs # ABG pH ABG pCO2 ABG pO2 ABG HCO3 ABG Total CO2 ABG O2 Saturation ABG Base Excess FiO2 Sodium Potassium Chloride Carbon Dioxide Anion Gap BUN Creatinine GFR Calculation BUN/Creatinine Ratio Glucose POC Glucose 282 H 267 H Calculated Osmolality Calcium Magnesium B-Natriuretic Peptide 243 H Urine Color Urine Appearance Urine pH Ur Specific [place] Urine Protein Urine Glucose (UA) Urine Ketones Urine Blood Urine Nitrate Urine Bilirubin Urine Urobilinogen Urine Leukocytes Urine RBC Urine WBC Hyaline Casts Urine Mucus Ur Culture Indicated? 04/22/16 04/22/16 04/22/16 17:15 18:29 19:30 WBC RBC Hgb Hct MCV MCH MCHC RDW Plt Count MPV Neut % (Auto) Lymph % (Auto) [place] % (Auto) Eos % (Auto) Baso % (Auto) Neut # (Auto) Lymph # (Auto) [place] # (Auto) Eos # (Auto) Baso # (Auto) Immature Gran % Nucleated RBC % Immature Gran # Nucleated RBCs # ABG pH 7.325 L ABG pCO2 71.0 H* ABG pO2 444.4 H ABG HCO3 36.2 H ABG Total CO2 38.4 H ABG O2 Saturation 99.5 ABG Base Excess 7.5 H FiO2 100.00 Sodium Potassium Chloride Carbon Dioxide Anion Gap BUN Creatinine GFR Calculation BUN/Creatinine Ratio Glucose POC Glucose 241 H Calculated Osmolality Calcium Magnesium B-Natriuretic Peptide Urine Color Yellow Urine Appearance Cloudy Urine pH 5.0 Ur Specific [place] 1.037 H Urine Protein >=500 Urine Glucose (UA) >=500 Urine Ketones Negative Urine Blood Negative Urine Nitrate Negative Urine Bilirubin Negative Urine Urobilinogen < 2.0 H Urine Leukocytes Negative Urine RBC 28 Urine WBC 15 Hyaline Casts 17 Urine Mucus Occasional Ur Culture Indicated? Results to follow 04/22/16 04/22/16 04/23/16 20:05 20:35 03:24 WBC 11.9 RBC 4.70 Hgb 14.0 Hct 45.0 MCV 95.7 MCH 30 MCHC 31.1 L RDW 12.7 Plt Count 221 MPV 11.8 Neut % (Auto) 70.8 Lymph % (Auto) 17.9 L [place] % (Auto) 10.2 Eos % (Auto) 0.4 Baso % (Auto) 0.3 Neut # (Auto) 8.4 H Lymph # (Auto) 2.1 [place] # (Auto) 1.2 H Eos # (Auto) 0.1 Baso # (Auto) 0.0 Immature Gran % 0.4 Nucleated RBC % 0.0 Immature Gran # 0.05 Nucleated RBCs # 0.00 ABG pH 7.435 ABG pCO2 49.7 H ABG pO2 128.0 H ABG HCO3 32.6 H ABG Total CO2 34.1 H ABG O2 Saturation 98.7 ABG Base Excess 7.0 H FiO2 50.00 Sodium Potassium Chloride Carbon Dioxide Anion Gap BUN Creatinine GFR Calculation BUN/Creatinine Ratio Glucose POC Glucose 196 H Calculated Osmolality Calcium Magnesium B-Natriuretic Peptide Urine Color Urine Appearance Urine pH Ur Specific [place] Urine Protein Urine Glucose (UA) Urine Ketones Urine Blood Urine Nitrate Urine Bilirubin Urine Urobilinogen Urine Leukocytes Urine RBC Urine WBC Hyaline Casts Urine Mucus Ur Culture Indicated? 04/23/16 04/23/16 04/23/16 03:24 03:55 07:37 WBC RBC Hgb Hct MCV MCH MCHC RDW Plt Count MPV Neut % (Auto) Lymph % (Auto) [place] % (Auto) Eos % (Auto) Baso % (Auto) Neut # (Auto) Lymph # (Auto) [place] # (Auto) Eos # (Auto) Baso # (Auto) Immature Gran % Nucleated RBC % Immature Gran # Nucleated RBCs # ABG pH 7.518 H ABG pCO2 40.9 ABG pO2 98.1 H ABG HCO3 32.5 H ABG Total CO2 33.8 H ABG O2 Saturation 97.9 ABG Base Excess 8.8 H FiO2 50.00 Sodium 144 Potassium 3.4 L Chloride 101 Carbon Dioxide 31 Anion Gap 15.4 H BUN 17 Creatinine 0.80 GFR Calculation 117 BUN/Creatinine Ratio 21.00 H Glucose 163 H POC Glucose 182 H Calculated Osmolality 291.8 Calcium 8.4 L Magnesium 2.0 B-Natriuretic Peptide Urine Color Urine Appearance Urine pH Ur Specific [place] Urine Protein Urine Glucose (UA) Urine Ketones Urine Blood Urine Nitrate Urine Bilirubin Urine Urobilinogen Urine Leukocytes Urine RBC Urine WBC Hyaline Casts Urine Mucus Ur Culture Indicated? Specialty Discharge - Follow Up or Referrals
[2016-04-23] MEDS: INSULIN NPH/REGULAR 70/30 100 UNIT/ML SUBCUT SCH ×2 (08:20→16:27)
[2016-04-23] MEDS: INSULIN REGULAR 100 UNIT/ML SUBCUT SCH ×4 (08:20→21:53)
[2016-04-23] MEDS: DEXMEDETOMIDINE 200 MCG in SODIUM CHLORIDE 0.9% 48 ML IV SCH ×2 (08:20→23:04)
[2016-04-23] MEDS: AMIODARONE INJ 450 MG in DEXTROSE 5% 241 ML IV SCH ×2 (10:26→18:11)
--- NOTE | 2016-04-23 16:27 | Sleep Medicine Consult ---
Assessment and Plan (1) Unspecified sleep apnea Status: Acute Assessment and plan: Even though he lacks a history of significant snoring, with his new onset A. fib , type 2 diabetes, coronary artery disease, and COPD, sleep evaluation should be done. Obviously we'll have to await extubation. Hopefully we'll be able to proceed with HST evaluation. Follow-up when off mechanical ventilation. Current Visit: Yes (2) Diabetes mellitus Status: Acute Assessment and plan: The prevalence rate for obstructive sleep apnea in patients with type 2 diabetes can be as high as 86%. Those patients with moderate to severe obstructive sleep apnea are at a greater risk for diabetic nephropathy and neuropathy. Compliance with CPAP therapy for these patients can lead to improvement in glycemic control and improvement in insulin sensitivity. Current Visit: Yes (3) New onset atrial fibrillation Status: Acute Assessment and plan: Prevalence for obstructive sleep apnea patients with atrial fibrillation just from 30-80%. Controlling the underlying sleep apnea can result in significant reduction of recurrence of A. fib, up to 48%. Current Visit: Yes History of Present Illness Chief complaint: sleep apnea History of present illness: Mr. Morgan is a 65 year old male who was admitted with atrial flutter fib with RVR. He has a history of coronary artery disease. He required intubation after cardioversion due to apnea. He's been very refractory to treatment with his A. fib and sleep medicine was consulted to evaluate for possible sleep apnea. Patient is mechanically ventilated. He is awake and alert and responsive appropriately to questions. He denies any history of snoring but does awaken from sleep short of breath. He denies any significant issues with daytime fatigue and sleepiness. His never had previous sleep evaluation in the past. Home Medications Medication Instructions Recorded Confirmed Type No Known Home Medications [No 04/19/16 04/19/16 History Known Home Medications] Allergies Allergy/AdvReac Type Severity Reaction Status Date / Time No Known Allergies Allergy Unverified 04/19/16 10:26 ROS unobtainable: due to endotracheal tube Exam (Pulmonay) H&P - Constitutional Vitals: Period Temp Pulse Resp BP Sys/Parker Pulse Ox Last 24 Hr 97.7 F-100.1 F 71-128 11-28 72-132/53-104 94-100 Exam: He is alert and responsive. He answers questions appropriately and moves all extremities. He has an oral endotracheal tube in place. He does have a class IV Mallampati exam. Neck is supple without adenopathy. Chest was asymmetrical breath sounds with wheezes bilaterally left greater than right. Cardiac exam reveals a regular rhythm without murmur or gallop. Abdomen soft nontender without palpable hepatosplenomegaly or mass. Extremities are without clubbing cyanosis or edema. Neurologically, grossly intact. Medical,Surgical,& Family Hx - Medical History Cardio: History of: [place] (2007, patient had 2 stents placed at [facility]) Endocrine: History of: Diabetes Mellitus (NIDDM) Respiratory: History of: Asthma - Surgical History Cardiac Surgeries: Sugical HX of: Cardiac Catheterization (2 stents) - Family History Family History: Reports;: Family Stroke (mother and father) - Social History Smoking Status: Current every day smoker Frequency of Alcohol Use: Occasionally Type of Drug Use: None Marital Status: Results - Labs CBC & BMP: 04/23/16 03:24 04/23/16 03:24 Lab Results: I have reviewed the past 24 hour labs Specialty Discharge - Follow Up or Referrals
[2016-04-23] MEDS: PHENYLEPHRINE DRIP 40 MG/250 ML PREMIX IV SCH (18:11)
[2016-04-23] MEDS: ATORVASTATIN 40 MG TABLET PO SCH (21:52)
[2016-04-24] MEDS: AMIODARONE INJ 450 MG in DEXTROSE 5% 241 ML IV SCH ×2 (01:47→09:36)
[2016-04-24 03:51] LABS: ABG Base Excess 2.9 MMOL/L (-2.5-2.5); ABG HCO3 26.9 MMOL/L (20-26); ABG Oxygen Saturation 98.1 % (95-100); ABG PCO2 53.2 MM HG (35-48); ABG PH 7.357 (7.35-7.45); ABG TCO2 25.7 MMOL/L (23-27); Allen Test Positive; Pt O2 Delivery Device Ventilator
[2016-04-24] MEDS ORDERED: FUROSEMIDE 20 MG/2 ML VIAL IV ONE (06:24)
--- NOTE | 2016-04-24 06:27 | Pulmonology Progress Note ---
Pulmonary - PN: Subj Interval history: This 65-year-old white male went into acute respiratory failure following cardioversion. He was having a good bit of bronchospasm yesterday. He sounds much better today. He tolerated to CPAP trial yesterday. His PCO2 is somewhat elevated. He is on Diamox. We will put him on a CPAP trial this morning and check blood gases and mechanics. Hopefully we can get him extubated. He does have a right lower lobe infiltrate on his x-ray but it looks better than yesterday. Exam (Progress Note) - Constitutional Vitals: Period Temp Pulse Resp BP Sys/Parker Pulse Ox Last 24 Hr 97.2 F-100.1 F 78-110 11-25 72-122/55-86 96-100 Exam: Patient is responsive. Vital signs normal. Pupils react to light. Orotracheal tube in place. Neck supple no bruits. Chest reveals a few scattered expiratory rhonchi. He's not tight. Heart normal rate, irreg rhythm no murmurs. Abdomen soft no masses. Remedies no clubbing cyanosis edema. Results - Labs CBC & BMP: 04/23/16 03:24 04/23/16 03:24 Lab Results: I have reviewed the past 24 hour labs - Diagnostic Findings Procedure: Chest x-ray: image reviewed by me (ET tube good position. Right lower lobe infiltrate less dense than yesterday.) Assessment and Plan (1) Diabetes mellitus Status: Acute Assessment and plan: Currently on sliding scale insulin. I'm going to add Solu-Medrol. We will need to add some long-acting insulin. 04/24/2016 blood sugars well controlled. Current Visit: Yes (2) COPD with acute exacerbation Status: Acute Assessment and plan: He's been wheezing since admission. Long-term smoker. Apparent chronic hypercarbia. I suspect he has pretty severe COPD. We'll treat for exacerbation with antibiotics steroids bronchodilators. Not clear what he has a bronchopneumonia in the right lower lobe versus congestive heart failure. His white blood count is 11,900. He does not have any fever. 04/24/2016 chest sounds better. Continue steroids Zosyn and bronchodilators. Hopefully can wean today. Current Visit: Yes (3) New onset atrial fibrillation Status: Acute Assessment and plan: He had cardioversion yesterday and converted to sinus rhythm but has converted back to atrial fibrillation. Echo has shown borderline normal LV function and no clots no valvular disease. Patient is on eliquis. 04/24/2016 he is in atrial fibrillation but has a controlled rate. Current Visit: Yes (4) Congestive heart failure Status: Acute Assessment and plan: Probably mild congestive heart failure. Defer to cardiology. Current Visit: Yes (5) Acute and chronic respiratory failure Status: Acute Assessment and plan: Has elevated PCO2. I suspect he has pretty severe COPD. He is on Diamox. Plan to try to wean off the ventilator this morning. Current Visit: Yes (6) Unspecified sleep apnea Status: Acute Assessment and plan: Will need BiPAP on standby for possible use postextubation. Current Visit: Yes Specialty Discharge - Follow Up or Referrals
[2016-04-24 06:44] LABS: Calcium 8.2 MG/DL (8.5-10.1); Magnesium 2.2 MG/DL (1.8-2.4); Potassium 3.8 MMOL/L (3.5-5.1)
--- NOTE | 2016-04-24 06:49 | XRay Report ---
XR chest 1V portable Indication: Intubated. Chest one view: Since yesterday, the tracheal tube, NG tube, normal heart size and mediastinal contour, and interstitial prominence of the lungs with hazy obscuration of the right infrahilar lung are stable. No new opacities are shown. Impression: No change. PROCEDURE INTERPRETED AT [facility] DEPARTMENT OF RADIOLOGY Final Report Signed by: Nigel Grace M.D.
[2016-04-24] MEDS: DORNASE ALFA 2.5 MG/2.5 ML VIAL RESP TX SCH ×2 (07:30→19:18)
[2016-04-24] MEDS ORDERED: DIGOXIN 0.5 MG/2 ML AMP IV ONE (08:00)
[2016-04-24] MEDS: metFORMIN 500 MG TABLET PO SCH ×2 (08:05→17:02)
[2016-04-24] MEDS: methylPREDNISolone SOD SUC 40 MG/1 ML VIAL IV SCH ×3 (08:05→23:50)
[2016-04-24] MEDS: INSULIN NPH/REGULAR 70/30 100 UNIT/ML SUBCUT SCH ×2 (08:06→17:02)
[2016-04-24] MEDS: INSULIN REGULAR 100 UNIT/ML SUBCUT SCH ×4 (08:06→20:37)
[2016-04-24] MEDS: DEXMEDETOMIDINE 200 MCG in SODIUM CHLORIDE 0.9% 48 ML IV SCH (08:06)
[2016-04-24] MEDS: PIPERACILLIN/TAZOBACTAM 3,375 MG in SODIUM CHLORIDE 0.9% 100 ML IV SCH ×3 (08:06→23:51)
--- NOTE | 2016-04-24 08:07 | Cardiology Progress Note ---
Assessment and Plan (1) New onset atrial fibrillation Status: Acute Assessment and plan: 04/21/16 1. 65 year-old W exam smoker with COPD, NIDDM, CAD status post remote [place] and stents [address] Esparza at [facility], who is not checked his glucose and a long time and has 6-8 months of increasing dyspnea on exertion which became quite severe and he was noted to have atrial fibrillation with RVR 2. Continue Eliquis 5 mg twice a day given his significant cardiomyopathy risk 3. His rate is better controlled today but he is still in atrial fibrillation; plan MIKEY cardioversion today 4. Coreg 3.125 mg twice a day to promote sinus rhythm, reduce his risk of future [place] 5. Change to high intensity statin with Lipitor 40 but of daily 6. Continuing to wheeze, likely related to his COPD; we discussed his need to actually stop all smoking, I will offer smoking cessation aids. 04/22/16 1. Patient remains in atrial fibrillation. Rates in the 130s. 2. Continued wheezing. He is receiving breathing treatments. 3. Discussed need for patient to stop smoking. 4. Awaiting BNP results. 5. Given he is now loaded with amiodarone since yesterday on infusion, plan reattempt cardioversion; MIKEY yesterday showed no thrombus with borderline normal LV function April 23 uptake: 1. Mr. Morgan required intubation yesterday afternoon due to apnea after sedation for cardioversion; he is being weaned on the ventilator followed by Dr. Damian; he has modest respiratory alkalosis morning, with good oxygenation 2. Reverted to atrial fibrillation earlier this morning; I can cardiovert him back to normal sinus rhythm at 360 J given he was already intubated and sedated 3. Continue amiodarone to promote normal sinus rhythm 4. Sleep medicine consulted given he very likely has NAN; his reports she' s witnessed apnea while sleeping and he has daytime somnolence 5. Smoking cessation will be very important for his prognosis 6. Continue anticoagulation with Eliquis April 24 update: 1. He is again reverted to atrial fibrillation after cardioversion, at this point I would not reattempt; I suspect he has NAN, and is been in atrial fibrillation for some months; atrial fibrillation ablation could be considered at a later time 2. He is wide awake in no distress, anticipating extubation this morning 3. Discontinue amiodarone; continue metoprolol, and will add digoxin today to help with rate control 4. Continue Eliquis to reduce risk of cardiac embolic events 5. Would consider stress test as an outpatient given his history of [place] and stents 2007 and significant risk factors 6. We will need to emphasize need for complete smoking cessation after discharge Current Visit: Yes (2) Congestive heart failure Status: Acute Current Visit: Yes (3) Hyperglycemia Status: Acute Current Visit: Yes (4) Wheezing Status: Acute Current Visit: Yes Cardiology - PN: Subj Interval history: Mr. Morgan is common follows commands clearly still on the ventilator. His sedation is been cut back significantly anticipating possible extubation. He continues to be in atrial fibrillation with heart rate about 100 beats minute all night. Exam (Progress Note) - Constitutional Vitals: Period Temp Pulse Resp BP Sys/Parker Pulse Ox Last 24 Hr 97.2 F-98.6 F 78-104 11-25 72-107/55-82 96-100 General appearance: no acute distress, over weight - Head Head exam: Present: normal inspection, normocephalic, atraumatic - Neck Neck exam: Present: normal inspection - Respiratory Respiratory exam: Present: rhonchi, wheezes - Cardiovascular Cardiovascular exam: Present: irregular rhythm, tachycardia. Absent: diastolic murmur, rubs - GI/Abdominal GI/Abdominal exam: Present: soft. Absent: tenderness - Extremities Exam Extremities exam: Present: edema (trace) - Neurological Exam Neurological exam: Present: alert Result/EKG - Labs CBC & BMP: 04/23/16 03:24 04/24/16 05:51 Labs: Laboratory Results - last 24 hr 04/23/16 04/23/16 04/23/16 11:26 16:17 19:38 ABG pH ABG pCO2 ABG pO2 ABG HCO3 ABG Total CO2 ABG O2 Saturation ABG Base Excess FiO2 Sodium Potassium Chloride Carbon Dioxide Anion Gap BUN Creatinine GFR Calculation BUN/Creatinine Ratio Glucose POC Glucose 198 H 190 H 191 H Calculated Osmolality Calcium Magnesium 04/24/16 04/24/16 04/24/16 03:25 05:51 07:50 ABG pH 7.357 ABG pCO2 53.2 H ABG pO2 104.0 H ABG HCO3 26.9 H ABG Total CO2 25.7 ABG O2 Saturation 98.1 ABG Base Excess 2.9 H FiO2 50.00 Sodium 143 Potassium 3.8 Chloride 102 Carbon Dioxide 29 Anion Gap 15.8 H BUN 19 H Creatinine 0.80 GFR Calculation 124 BUN/Creatinine Ratio 23.00 H Glucose 213 H POC Glucose 227 H Calculated Osmolality 292.0 Calcium 8.2 L Magnesium 2.2 Specialty Discharge - Follow Up or Referrals
[2016-04-24 08:21] LABS: Allen Test Positive; Pt O2 Delivery Device Ventilator
[2016-04-24 08:23] LABS: ABG Base Excess 1.7 MMOL/L (-2.5-2.5); ABG HCO3 25.9 MMOL/L (20-26); ABG Oxygen Saturation 99.3 % (95-100); ABG PH 7.365 (7.35-7.45)
[2016-04-24] MEDS: PANTOPRAZOLE 40 MG TABLET PO SCH (09:32)
[2016-04-24] MEDS: METOPROLOL TARTRATE 50 MG TABLET PO SCH ×2 (09:33→20:37)
[2016-04-24] MEDS: ASPIRIN EC 81 MG TABLET PO SCH (09:33)
[2016-04-24] MEDS: ASCORBIC ACID 500 MG TABLET PO SCH ×2 (09:34→20:36)
[2016-04-24] MEDS: APIXABAN 5 MG TABLET PO SCH ×2 (09:35→20:36)
[2016-04-24 10:20] LABS: Allen Test Positive
[2016-04-24 10:22] LABS: ABG Base Excess 2.2 MMOL/L (-2.5-2.5); ABG HCO3 26.3 MMOL/L (20-26); ABG Oxygen Saturation 96.1 % (95-100); ABG PCO2 52.5 MM HG (35-48); ABG PH 7.352 (7.35-7.45); ABG PO2 82.2 MM HG (80-95); ABG TCO2 24.9 MMOL/L (23-27)
--- NOTE | 2016-04-24 12:28 | Sleep Medicine Progress Note ---
Assessment and Plan (1) Unspecified sleep apnea Status: Acute Assessment and plan: Even though he lacks a history of significant snoring, with his new onset A. fib , type 2 diabetes, coronary artery disease, and COPD, sleep evaluation should be done. If his pulmonary status continues to improve, we may be able to do HST evaluation on him. Otherwise, we will schedule outpatient polysomnography. Current Visit: Yes (2) Diabetes mellitus Status: Acute Current Visit: Yes (3) New onset atrial fibrillation Status: Acute Current Visit: Yes Sleep Medicine Subjective Interval history: Patient was extubated this morning. He is doing much better. As noted in exam and history yesterday, he denies any significant snoring or difficulty with maintaining sleep. He denies ever being told that he stops breathing during his sleep. However, he does have significant physical features that would predispose him to having sleep apnea and has significant medical issues that can be associated with untreated sleep apnea. Exam (Progress Note) - Constitutional Vitals: Period Temp Pulse Resp BP Sys/Parker Pulse Ox Last 24 Hr 96.9 F-98.3 F 78-104 11-25 80-102/55-74 96-100 Exam: He is alert and responsive in no acute distress. Oropharynx with class IV Mallampati exam. Neck is large supple without adenopathy chest with fair air movement and less wheezing today than yesterday. Cardiac exam reveals a regular rhythm without murmur or gallop. Abdomen soft nontender without palpable hepatosplenomegaly or mass. Extremities are without increased edema. Neurologically, grossly intact. Results - Labs CBC & BMP: 04/23/16 03:24 04/24/16 05:51 Lab Results: I have reviewed the past 24 hour labs Specialty Discharge - Follow Up or Referrals
[2016-04-24] MEDS: DIGOXIN 0.125 MG TABLET PO SCH (12:49)
[2016-04-24] MEDS: PHENYLEPHRINE DRIP 40 MG/250 ML PREMIX IV SCH (18:09)
[2016-04-24] MEDS: ATORVASTATIN 40 MG TABLET PO SCH (20:36)
--- NOTE | 2016-04-25 06:23 | Pulmonology Progress Note ---
Pulmonary - PN: Subj Interval history: This 65-year-old white male went into acute respiratory failure following cardioversion. He was having a good bit of bronchospasm yesterday. He sounds much better today. He tolerated to CPAP trial yesterday. His PCO2 is somewhat elevated. He is on Diamox. We will put him on a CPAP trial this morning and check blood gases and mechanics. Hopefully we can get him extubated. He does have a right lower lobe infiltrate on his x-ray but it looks better than yesterday. We were able to get the patient extubated yesterday. He has an elevated PCO2 around 52. Suspect this is due to severe COPD with chronic respiratory failure. Probably also has sleep apnea. He has a right lower lobe bronchopneumonia radiographically. He is on Zosyn. His sputum is growing a gram-negative diplococci. 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 Continue Zosyn for now. He can be moved to the floor. His glucoses are a little high. We will reduce Solu-Medrol and increase his Humulin N. Exam (Progress Note) - Constitutional Vitals: Period Temp Pulse Resp BP Sys/Parker Pulse Ox Last 24 Hr 96.9 F-97.8 F 83-126 11-37 90-126/61-86 92-100 Exam: Patient is responsive, alert, moving all 4 extremities and answering questions. Vital signs normal. Pupils react to light. Neck supple no bruits. Chest reveals a few scattered expiratory rhonchi. He's not tight. Heart normal rate , irreg rhythm no murmurs. Abdomen soft no masses. Remedies no clubbing cyanosis edema. Results - Labs CBC & BMP: 04/23/16 03:24 04/24/16 05:51 Lab Results: I have reviewed the past 24 hour labs - Diagnostic Findings Procedure: Chest x-ray: image reviewed by me (has persistent right lower lobe infiltrate.) Assessment and Plan (1) Diabetes mellitus Status: Acute Assessment and plan: Currently on sliding scale insulin. I'm going to add Solu-Medrol. We will need to add some long-acting insulin. 04/24/2016 blood sugars well controlled. 04/25/2016 blood sugars are running in the 300s. We will reduce Solu-Medrol and increase Humulin N. Patient started on a diet yesterday. Current Visit: Yes (2) COPD with acute exacerbation Status: Acute Assessment and plan: He's been wheezing since admission. Long-term smoker. Apparent chronic hypercarbia. I suspect he has pretty severe COPD. We'll treat for exacerbation with antibiotics steroids bronchodilators. Not clear what he has a bronchopneumonia in the right lower lobe versus congestive heart failure. His white blood count is 11,900. He does not have any fever. 04/24/2016 chest sounds better. Continue steroids Zosyn and bronchodilators. Hopefully can wean today. 04/25/2016 probably has severe COPD. Long-term smoker. Acute bronchitis and bronchospasm. Hypercarbia. We'll plan to do PFTs first of next week. Current Visit: Yes (3) New onset atrial fibrillation Status: Acute Assessment and plan: He had cardioversion yesterday and converted to sinus rhythm but has converted back to atrial fibrillation. Echo has shown borderline normal LV function and no clots no valvular disease. Patient is on eliquis. 04/24/2016 he is in atrial fibrillation but has a controlled rate. 04/25/2016 patient remains in atrial fibrillation but his rate is controlled. Current Visit: Yes (4) Congestive heart failure Status: Acute Assessment and plan: Probably mild congestive heart failure. Defer to cardiology. 04/25/2016 defer to cardiology on further management of left ventricular dysfunction. Current Visit: Yes (5) Acute and chronic respiratory failure Status: Acute Assessment and plan: Has elevated PCO2. I suspect he has pretty severe COPD. He is on Diamox. Plan to try to wean off the ventilator this morning. 04/25/2016 PCO2 was 52 post extubation. We have him on Diamox for another day or so. Probably has severe COPD. May also have sleep apnea. We'll plan PFTs Thursday. Recheck ABGs then t00. Current Visit: Yes (6) Unspecified sleep apnea Status: Acute Assessment and plan: Will need BiPAP on standby for possible use postextubation. 04/25/2016 we have not required BiPAP. We'll need sleep study when he is over the acute exacerbation. Dr. Dong will direct that. Current Visit: Yes Specialty Discharge - Follow Up or Referrals
--- NOTE | 2016-04-25 06:56 | XRay Report ---
XR chest 1V portable Indication: Extubated. Chest one view: Comparison yesterday shows interval extubation. Heart size and mediastinal contour remain normal. In general, increased hazy obscuration of the medial right lung base noted with continued diffuse interstitial prominence of the lungs. Impression: Slightly worsened atelectasis or pneumonia right lung base following extubation. PROCEDURE INTERPRETED AT [facility] DEPARTMENT OF RADIOLOGY Final Report Signed by: Nigel Grace M.D.
[2016-04-25] MEDS: DORNASE ALFA 2.5 MG/2.5 ML VIAL RESP TX SCH ×2 (07:08→20:26)
[2016-04-25] MEDS: PIPERACILLIN/TAZOBACTAM 3,375 MG in SODIUM CHLORIDE 0.9% 100 ML IV SCH ×3 (08:15→23:03)
[2016-04-25] MEDS: INSULIN NPH/REGULAR 70/30 100 UNIT/ML SUBCUT SCH ×2 (08:16→16:37)
[2016-04-25] MEDS: APIXABAN 5 MG TABLET PO SCH ×2 (08:16→20:26)
[2016-04-25] MEDS: ASPIRIN EC 81 MG TABLET PO SCH (08:16)
[2016-04-25] MEDS: PANTOPRAZOLE 40 MG TABLET PO SCH (08:16)
[2016-04-25] MEDS: metFORMIN 500 MG TABLET PO SCH ×2 (08:16→18:08)
[2016-04-25] MEDS: ASCORBIC ACID 500 MG TABLET PO SCH ×2 (08:16→20:26)
[2016-04-25] MEDS: METOPROLOL TARTRATE 50 MG TABLET PO SCH (08:16)
[2016-04-25] MEDS: INSULIN REGULAR 100 UNIT/ML SUBCUT SCH ×4 (08:16→22:07)
[2016-04-25] MEDS: METOPROLOL SUCCINATE XL 50 MG TABLET PO SCH ×2 (09:25→20:26)
[2016-04-25] MEDS: DILTIAZEM CD 120 MG CAPSULE PO SCH ×2 (09:42→20:25)
--- NOTE | 2016-04-25 10:43 | Cardiology Progress Note ---
I, Olga Ennis, GARCIA, am scribing for, and in the presence of, Bebo Martinez MD 10:43. Assessment and Plan (1) New onset atrial fibrillation Status: Acute Assessment and plan: 04/21/16 1. 65 year-old W exam smoker with COPD, NIDDM, CAD status post remote [place] and stents [address] Esparza at [facility], who is not checked his glucose and a long time and has 6-8 months of increasing dyspnea on exertion which became quite severe and he was noted to have atrial fibrillation with RVR 2. Continue Eliquis 5 mg twice a day given his significant cardiomyopathy risk 3. His rate is better controlled today but he is still in atrial fibrillation; plan MIKEY cardioversion today 4. Coreg 3.125 mg twice a day to promote sinus rhythm, reduce his risk of future [place] 5. Change to high intensity statin with Lipitor 40 but of daily 6. Continuing to wheeze, likely related to his COPD; we discussed his need to actually stop all smoking, I will offer smoking cessation aids. 04/22/16 1. Patient remains in atrial fibrillation. Rates in the 130s. 2. Continued wheezing. He is receiving breathing treatments. 3. Discussed need for patient to stop smoking. 4. Awaiting BNP results. 5. Given he is now loaded with amiodarone since yesterday on infusion, plan reattempt cardioversion; MIKEY yesterday showed no thrombus with borderline normal LV function April 23 uptake: 1. Mr. Morgan required intubation yesterday afternoon due to apnea after sedation for cardioversion; he is being weaned on the ventilator followed by Dr. Damian; he has modest respiratory alkalosis morning, with good oxygenation 2. Reverted to atrial fibrillation earlier this morning; I can cardiovert him back to normal sinus rhythm at 360 J given he was already intubated and sedated 3. Continue amiodarone to promote normal sinus rhythm 4. Sleep medicine consulted given he very likely has NAN; his reports she' s witnessed apnea while sleeping and he has daytime somnolence 5. Smoking cessation will be very important for his prognosis 6. Continue anticoagulation with Eliquis April 24 update: 1. He is again reverted to atrial fibrillation after cardioversion, at this point I would not reattempt; I suspect he has NAN, and is been in atrial fibrillation for some months; atrial fibrillation ablation could be considered at a later time 2. He is wide awake in no distress, anticipating extubation this morning 3. Discontinue amiodarone; continue metoprolol, and will add digoxin today to help with rate control 4. Continue Eliquis to reduce risk of cardiac embolic events 5. Would consider stress test as an outpatient given his history of [place] and stents 2007 and significant risk factors 6. We will need to emphasize need for complete smoking cessation after discharge 04/25/16 Update: 1. Mr. Morgan is doing very well since extubation and has no significant shortness of breath or other symptoms this morning 2. Persistent atrial fibrillation with fair rate control (heart rate upper 90s to low 100s) 3. Start low-dose Cardizem CD, and change metoprolol to extended release 5omg twice a day 4. Transferred to the floor 5. Sleep medicine is following for suspected NAN 6. Continuing Eliquis reduced cardiac embolic events 7. Amiodarone has been discontinued, as he cannot maintain normal sinus rhythm 8. Smoking cessation will be very important for his future prognosis Current Visit: Yes (2) Congestive heart failure Status: Acute Current Visit: Yes (3) Hyperglycemia Status: Acute Current Visit: Yes (4) Unspecified sleep apnea Status: Acute Current Visit: Yes (5) Wheezing Status: Acute Current Visit: Yes Cardiology - PN: Subj Interval history: Mr. Morgan is doing much better today. He was extubated yesterday and has now been weaned to 2L NBP. This morning he denies all complaints. He continues to be in atrial fib with heart rate 90-115. Will plan for him to be transferred to telemetry today. Exam (Progress Note) - Constitutional Vitals: Period Temp Pulse Resp BP Sys/Parker Pulse Ox Last 24 Hr 97.0 F-97.8 F 91-126 14-37 93-126/61-86 92-100 General appearance: no acute distress - Head Head exam: Present: normal inspection, normocephalic, atraumatic - Neck Neck exam: Present: normal inspection - Respiratory Respiratory exam: Present: rhonchi, wheezes - Cardiovascular Cardiovascular exam: Present: irregular rhythm, tachycardia. Absent: diastolic murmur, gallop, rubs - GI/Abdominal GI/Abdominal exam: Present: normal bowel sounds, soft. Absent: tenderness - Extremities Exam Extremities exam: Present: normal inspection, edema (trace ) - Neurological Exam Neurological exam: Present: alert, oriented X3 - Psychiatric Psychiatric exam: Present: normal affect, normal mood - Skin Skin exam: Present: normal color, warm, dry Result/EKG - Labs CBC & BMP: 04/23/16 03:24 04/24/16 05:51 Lab Results: I have reviewed the past 24 hour labs Labs: Laboratory Results - last 24 hr 04/24/16 04/24/16 04/24/16 10:10 11:28 16:10 ABG pH 7.352 ABG pCO2 52.5 H ABG pO2 82.2 ABG HCO3 26.3 H ABG Total CO2 24.9 ABG O2 Saturation 96.1 ABG Base Excess 2.2 FiO2 32.00 POC Glucose 244 H 273 H 04/24/16 04/25/16 20:31 07:26 ABG pH ABG pCO2 ABG pO2 ABG HCO3 ABG Total CO2 ABG O2 Saturation ABG Base Excess FiO2 POC Glucose 363 H 195 H - EKG EKG results: interpreted by me EKG shows: atrial fibrillation (atrial fib with controlled ventricular rate ) Specialty Discharge - Follow Up or Referrals IMichelle Randall Scott, MD, personally performed the services described in this documentation, ascribed by Olga Ennis RN in my presence, and it is both accurate and complete .
[2016-04-25] MEDS: DIGOXIN 0.125 MG TABLET PO SCH (12:52)
--- NOTE | 2016-04-25 12:57 | Sleep Medicine Progress Note ---
Assessment and Plan (1) Unspecified sleep apnea Status: Acute Assessment and plan: His pulmonary status does seem to be improving. If he is in the hospital early next week, we likely can obtained HST evaluation. Current Visit: Yes (2) Diabetes mellitus Status: Acute Current Visit: Yes (3) New onset atrial fibrillation Status: Acute Current Visit: Yes Sleep Medicine Subjective Interval history: Patient does seem to be improving daily. He is eating well. He is breathing comfortably on supplemental oxygen. He is being transferred out of the unit today. Exam (Progress Note) - Constitutional Vitals: Period Temp Pulse Resp BP Sys/Parker Pulse Ox Last 24 Hr 97.0 F-97.8 F 91-126 14-37 93-126/61-86 90-100 Exam: He is alert and responsive and communicating without difficulty. Chest with good air movement and no focal wheezes, rhonchi, or rales. Cardiac exam reveals a regular rhythm without murmur or gallop. Abdomen soft nontender extremities without increased edema. Neurologically, he is grossly intact. Results - Labs CBC & BMP: 04/23/16 03:24 04/24/16 05:51 Lab Results: I have reviewed the past 24 hour labs Specialty Discharge - Follow Up or Referrals
[2016-04-25] MEDS: methylPREDNISolone SOD SUC 40 MG/1 ML VIAL IV SCH (20:25)
[2016-04-25] MEDS: ATORVASTATIN 40 MG TABLET PO SCH (20:26)
[2016-04-26] MEDS: DORNASE ALFA 2.5 MG/2.5 ML VIAL RESP TX SCH ×2 (07:01→20:55)
--- NOTE | 2016-04-26 09:25 | Cardiology Progress Note ---
Assessment and Plan (1) New onset atrial fibrillation Status: Acute Assessment and plan: 04/21/16 1. 65 year-old W exam smoker with COPD, NIDDM, CAD status post remote [place] and stents [address] Esparza at [place], who is not checked his glucose and a long time and has 6-8 months of increasing dyspnea on exertion which became quite severe and he was noted to have atrial fibrillation with RVR 2. Continue Eliquis 5 mg twice a day given his significant cardiomyopathy risk 3. His rate is better controlled today but he is still in atrial fibrillation; plan MIKEY cardioversion today 4. Coreg 3.125 mg twice a day to promote sinus rhythm, reduce his risk of future NJ 5. Change to high intensity statin with Lipitor 40 but of daily 6. Continuing to wheeze, likely related to his COPD; we discussed his need to actually stop all smoking, I will offer smoking cessation aids. 04/22/16 1. Patient remains in atrial fibrillation. Rates in the 130s. 2. Continued wheezing. He is receiving breathing treatments. 3. Discussed need for patient to stop smoking. 4. Awaiting BNP results. 5. Given he is now loaded with amiodarone since yesterday on infusion, plan reattempt cardioversion; MIKEY yesterday showed no thrombus with borderline normal LV function April 23 uptake: 1. Mr. Morgan required intubation yesterday afternoon due to apnea after sedation for cardioversion; he is being weaned on the ventilator followed by Dr. Damian; he has modest respiratory alkalosis morning, with good oxygenation 2. Reverted to atrial fibrillation earlier this morning; I can cardiovert him back to normal sinus rhythm at 360 J given he was already intubated and sedated 3. Continue amiodarone to promote normal sinus rhythm 4. Sleep medicine consulted given he very likely has NAN; his reports she' s witnessed apnea while sleeping and he has daytime somnolence 5. Smoking cessation will be very important for his prognosis 6. Continue anticoagulation with Eliquis April 24 update: 1. He is again reverted to atrial fibrillation after cardioversion, at this point I would not reattempt; I suspect he has NAN, and is been in atrial fibrillation for some months; atrial fibrillation ablation could be considered at a later time 2. He is wide awake in no distress, anticipating extubation this morning 3. Discontinue amiodarone; continue metoprolol, and will add digoxin today to help with rate control 4. Continue Eliquis to reduce risk of cardiac embolic events 5. Would consider stress test as an outpatient given his history of NJ and stents 2007 and significant risk factors 6. We will need to emphasize need for complete smoking cessation after discharge 04/25/16 Update: 1. Mr. Morgan is doing very well since extubation and has no significant shortness of breath or other symptoms this morning 2. Persistent atrial fibrillation with fair rate control (heart rate upper 90s to low 100s) 3. Start low-dose Cardizem CD, and change metoprolol to extended release 5omg twice a day 4. Transferred to the floor 5. Sleep medicine is following for suspected NAN 6. Continuing Eliquis reduced cardiac embolic events 7. Amiodarone has been discontinued, as he cannot maintain normal sinus rhythm 8. Smoking cessation will be very important for his future prognosis 04/26/2016: 1. Mr. Morgan continued to have wheezing and dyspnea on exertion, but is gradually improving and is now ambulating in the room some 2. Pneumonia with COPD exacerbation; pulmonary is following; we discussed absolute need to cease all smoking going forward 3. Borderline rate control with heart rate running in the 90s to low 100 still ; we'll continue to watch and consider increasing Toprol if needed; I'm concerned about causing bronchospasm with higher dosages , so I'll hold off for now. 4. High probability of NAN; Dr. Dong is following Current Visit: Yes (2) Congestive heart failure Status: Acute Current Visit: Yes (3) Hyperglycemia Status: Acute Current Visit: Yes (4) Unspecified sleep apnea Status: Acute Current Visit: Yes (5) Wheezing Status: Acute Current Visit: Yes Cardiology - PN: Subj Interval history: Mr. Morgan feels significantly better although he still coughing has been mild shortness of breath. He is getting a bit although he is a little weak. He is not having any chest discomfort palpitations or presyncope. Exam (Progress Note) - Constitutional Vitals: Period Temp Pulse Resp BP Sys/Parker Pulse Ox Last 24 Hr 96.8 F-98.3 F 79-107 16-26 91-122/53-85 85-99 General appearance: no acute distress, over weight - Head Head exam: Present: normal inspection, normocephalic, atraumatic - Respiratory Respiratory exam: Present: rhonchi, wheezes (mild wheezing) - Cardiovascular Cardiovascular exam: Present: irregular rhythm, tachycardia. Absent: diastolic murmur, rubs - GI/Abdominal GI/Abdominal exam: Present: soft. Absent: tenderness - Extremities Exam Extremities exam: Present: edema (trace bilateral edema) Result/EKG - Labs CBC & BMP: 04/23/16 03:24 04/24/16 05:51 Labs: Laboratory Results - last 24 hr 04/25/16 04/25/16 04/25/16 12:25 16:00 20:22 POC Glucose 238 H 264 H 212 H Specialty Discharge - Follow Up or Referrals
[2016-04-26] MEDS: PANTOPRAZOLE 40 MG TABLET PO SCH (09:45)
[2016-04-26] MEDS: ASPIRIN EC 81 MG TABLET PO SCH (09:45)
[2016-04-26] MEDS: ASCORBIC ACID 500 MG TABLET PO SCH ×2 (09:45→20:55)
[2016-04-26] MEDS: DILTIAZEM CD 120 MG CAPSULE PO SCH ×2 (09:45→20:52)
[2016-04-26] MEDS: METOPROLOL SUCCINATE XL 50 MG TABLET PO SCH ×2 (09:45→20:55)
[2016-04-26] MEDS: APIXABAN 5 MG TABLET PO SCH ×2 (09:45→20:57)
[2016-04-26] MEDS: metFORMIN 500 MG TABLET PO SCH ×2 (09:45→16:43)
[2016-04-26] MEDS: INSULIN REGULAR 100 UNIT/ML SUBCUT SCH ×4 (09:46→21:45)
[2016-04-26] MEDS: INSULIN NPH/REGULAR 70/30 100 UNIT/ML SUBCUT SCH ×2 (09:46→17:26)
[2016-04-26] MEDS: PIPERACILLIN/TAZOBACTAM 3,375 MG in SODIUM CHLORIDE 0.9% 100 ML IV SCH ×3 (09:46→23:19)
[2016-04-26] MEDS ORDERED: ALBUTEROL 1.25 MG/3 ML NEB RESP TX PRN (14:36)
--- NOTE | 2016-04-26 14:40 | Pulmonology Progress Note ---
Pulmonary - PN: Subj Interval history: Patient seen and examined, patient states his breahting is ok, disagrees. States he's only gotten one breathing treatment since leaving the ICU and he still gets winded easily. Reports having had a sleep study last night(?). Otherwise ok Exam (Progress Note) - Constitutional Vitals: Period Temp Pulse Resp BP Sys/Parker Pulse Ox Last 24 Hr 96.8 F-98.3 F 75-107 16-25 91-131/53-85 85-99 General appearance: normal weight, no acute distress - ENT ENT exam: Present: normal exam - Respiratory Respiratory exam: Present: decreased breath sounds, wheezes. Absent: accessory muscle use, rales, rhonchi Results - Labs CBC & BMP: 04/23/16 03:24 04/24/16 05:51 Lab Results: I have reviewed the past 24 hour labs Assessment and Plan (1) COPD with acute exacerbation Status: Acute Assessment and plan: Patient still on IV steroids. Will change nebs to scheduled with an additional PRN order. Patient counseled on asking for a neb if he needs it. Also reminded that he will be short of breath for awhile following an ICU stay. Will likely need pulmonary rehab upon discharge Current Visit: Yes Specialty Discharge - Follow Up or Referrals
[2016-04-26] MEDS: DIGOXIN 0.125 MG TABLET PO SCH (14:53)
[2016-04-26] MEDS: ALBUTEROL/IPRATROPIUM 3 ML NEB RESP TX SCH (20:54)
[2016-04-26] MEDS: ATORVASTATIN 40 MG TABLET PO SCH (20:56)
[2016-04-26] MEDS: methylPREDNISolone SOD SUC 40 MG/1 ML VIAL IV SCH (20:56)
[2016-04-27] MEDS: ALBUTEROL/IPRATROPIUM 3 ML NEB RESP TX SCH ×4 (01:13→19:16)
[2016-04-27] MEDS: APIXABAN 5 MG TABLET PO SCH ×2 (09:32→20:01)
[2016-04-27] MEDS: INSULIN NPH/REGULAR 70/30 100 UNIT/ML SUBCUT SCH ×2 (09:33→17:18)
[2016-04-27] MEDS: INSULIN REGULAR 100 UNIT/ML SUBCUT SCH ×4 (09:33→21:11)
[2016-04-27] MEDS: metFORMIN 500 MG TABLET PO SCH ×2 (09:33→17:18)
[2016-04-27] MEDS: METOPROLOL SUCCINATE XL 50 MG TABLET PO SCH ×2 (09:33→20:02)
[2016-04-27] MEDS: ASPIRIN EC 81 MG TABLET PO SCH (09:33)
[2016-04-27] MEDS: PANTOPRAZOLE 40 MG TABLET PO SCH (09:33)
[2016-04-27] MEDS: DILTIAZEM CD 120 MG CAPSULE PO SCH ×2 (09:33→20:02)
[2016-04-27] MEDS: ASCORBIC ACID 500 MG TABLET PO SCH ×2 (09:33→20:02)
[2016-04-27] MEDS: PIPERACILLIN/TAZOBACTAM 3,375 MG in SODIUM CHLORIDE 0.9% 100 ML IV SCH ×3 (09:34→23:35)
--- NOTE | 2016-04-27 10:11 | Cardiology Progress Note ---
Assessment and Plan (1) New onset atrial fibrillation Status: Acute Assessment and plan: 04/21/16 1. 65 year-old W exam smoker with COPD, NIDDM, CAD status post remote [place] and stents [address] Esparza at [place], who is not checked his glucose and a long time and has 6-8 months of increasing dyspnea on exertion which became quite severe and he was noted to have atrial fibrillation with RVR 2. Continue Eliquis 5 mg twice a day given his significant cardiomyopathy risk 3. His rate is better controlled today but he is still in atrial fibrillation; plan MIKEY cardioversion today 4. Coreg 3.125 mg twice a day to promote sinus rhythm, reduce his risk of future [place] 5. Change to high intensity statin with Lipitor 40 but of daily 6. Continuing to wheeze, likely related to his COPD; we discussed his need to actually stop all smoking, I will offer smoking cessation aids. 04/22/16 1. Patient remains in atrial fibrillation. Rates in the 130s. 2. Continued wheezing. He is receiving breathing treatments. 3. Discussed need for patient to stop smoking. 4. Awaiting BNP results. 5. Given he is now loaded with amiodarone since yesterday on infusion, plan reattempt cardioversion; MIKEY yesterday showed no thrombus with borderline normal LV function April 23 uptake: 1. Mr. Morgan required intubation yesterday afternoon due to apnea after sedation for cardioversion; he is being weaned on the ventilator followed by Dr. Damian; he has modest respiratory alkalosis morning, with good oxygenation 2. Reverted to atrial fibrillation earlier this morning; I can cardiovert him back to normal sinus rhythm at 360 J given he was already intubated and sedated 3. Continue amiodarone to promote normal sinus rhythm 4. Sleep medicine consulted given he very likely has NAN; his reports she' s witnessed apnea while sleeping and he has daytime somnolence 5. Smoking cessation will be very important for his prognosis 6. Continue anticoagulation with Eliquis April 24 update: 1. He is again reverted to atrial fibrillation after cardioversion, at this point I would not reattempt; I suspect he has NAN, and is been in atrial fibrillation for some months; atrial fibrillation ablation could be considered at a later time 2. He is wide awake in no distress, anticipating extubation this morning 3. Discontinue amiodarone; continue metoprolol, and will add digoxin today to help with rate control 4. Continue Eliquis to reduce risk of cardiac embolic events 5. Would consider stress test as an outpatient given his history of [place] and stents 2007 and significant risk factors 6. We will need to emphasize need for complete smoking cessation after discharge 04/25/16 Update: 1. Mr. Morgan is doing very well since extubation and has no significant shortness of breath or other symptoms this morning 2. Persistent atrial fibrillation with fair rate control (heart rate upper 90s to low 100s) 3. Start low-dose Cardizem CD, and change metoprolol to extended release 5omg twice a day 4. Transferred to the floor 5. Sleep medicine is following for suspected NAN 6. Continuing Eliquis reduced cardiac embolic events 7. Amiodarone has been discontinued, as he cannot maintain normal sinus rhythm 8. Smoking cessation will be very important for his future prognosis 04/26/2016: 1. Mr. Morgan continued to have wheezing and dyspnea on exertion, but is gradually improving and is now ambulating in the room some 2. Pneumonia with COPD exacerbation; pulmonary is following; we discussed absolute need to cease all smoking going forward 3. Borderline rate control with heart rate running in the 90s to low 100 still ; we'll continue to watch and consider increasing Toprol if needed; I'm concerned about causing bronchospasm with higher dosages , so I'll hold off for now. 4. High probability of NAN; Dr. Dong is following 04/27/2016: 1. Mr. Morgan continues to slowly improve with regard to his dyspnea on exertion and wheezing, but still has hypoxia on room air (in the 80s yesterday) ; we'll check again today 2. Atrial fibrillation is persistent, but rate is now reasonably well- controlled; continue to monitor to see if he develops RVR again 3. Smoking cessation will be very important for his future prognosis. 4. Sleep medicine is following, as he very likely has significant NAN, believe he will be seen tomorrow by them. 5. Continue Eliquis to reduce cardiac embolic risk from atrial fibrillation Current Visit: Yes (2) Congestive heart failure Status: Acute Current Visit: Yes (3) Hyperglycemia Status: Acute Current Visit: Yes (4) Unspecified sleep apnea Status: Acute Current Visit: Yes (5) Wheezing Status: Acute Current Visit: Yes Cardiology - PN: Subj Interval history: Mr. pulido night has no complaints. Does have a bit of a cough and still gets short of breath when he walks around. He feels that he clearly has improved. He is not having chest pain palpitations or dizziness. His heart rate is better controlled today. Exam (Progress Note) - Constitutional Vitals: Period Temp Pulse Resp BP Sys/Parker Pulse Ox Last 24 Hr 97.3 F-99.3 F 75-112 16-22 116-132/66-74 91-98 General appearance: no acute distress, over weight - Head Head exam: Present: normal inspection, normocephalic, atraumatic - Neck Neck exam: Present: normal inspection - Respiratory Respiratory exam: Present: rhonchi, wheezes (improved). Absent: stridor - Cardiovascular Cardiovascular exam: Present: irregular rhythm. Absent: diastolic murmur, rubs , tachycardia - GI/Abdominal GI/Abdominal exam: Present: soft. Absent: tenderness - Extremities Exam Extremities exam: Present: edema (trace edema) Result/EKG - Labs CBC & BMP: 04/23/16 03:24 04/24/16 05:51 Labs: Laboratory Results - last 24 hr 04/26/16 04/26/16 04/26/16 07:08 12:32 16:18 POC Glucose 257 H 251 H 238 H 04/26/16 04/27/16 21:45 07:03 POC Glucose 131 H 231 H Specialty Discharge - Follow Up or Referrals
--- NOTE | 2016-04-27 12:21 | Pulmonology Progress Note ---
Pulmonary - PN: Subj Interval history: Patient laying in bed, no complaints this morning. States breathing has been better with increased nebs. No other complaints Exam (Progress Note) - Constitutional Vitals: Period Temp Pulse Resp BP Sys/Parker Pulse Ox Last 24 Hr 97.6 F-99.3 F 81-112 16-22 116-132/66-74 91-98 General appearance: normal weight, no acute distress - Head Head exam: Present: normal inspection - Respiratory Respiratory exam: Present: clear to auscultation bilaterally. Absent: accessory muscle use, stridor Results - Labs CBC & BMP: 04/23/16 03:24 04/24/16 05:51 Lab Results: I have reviewed the past 24 hour labs Assessment and Plan (1) COPD with acute exacerbation Status: Acute Assessment and plan: Patient doing well. Would change solumedrol to Prednisone. Dr Damian to resume care tomorrow. Will likely need pulmonary rehab upon discharge Current Visit: Yes Specialty Discharge - Follow Up or Referrals
[2016-04-27] MEDS: DIGOXIN 0.125 MG TABLET PO SCH (13:23)
[2016-04-27] MEDS: ATORVASTATIN 40 MG TABLET PO SCH (20:01)
[2016-04-27] MEDS: methylPREDNISolone SOD SUC 40 MG/1 ML VIAL IV SCH (20:02)
[2016-04-28] MEDS: ALBUTEROL/IPRATROPIUM 3 ML NEB RESP TX SCH ×5 (00:01→19:32)
[2016-04-28 03:25] LABS: ABG Base Excess 4.1 MMOL/L (-2.5-2.5); ABG HCO3 27.8 MMOL/L (20-26); ABG Oxygen Saturation 89.7 % (95-100); ABG PCO2 50.4 MM HG (35-48); ABG PH 7.388 (7.35-7.45); ABG PO2 55.5 MM HG (80-95); ABG TCO2 26.1 MMOL/L (23-27); Allen Test Positive; Pt O2 Delivery Device Room Air
--- NOTE | 2016-04-28 08:23 | Pulmonology Progress Note ---
Pulmonary - PN: Subj Interval history: This 65-year-old white male went into acute respiratory failure following cardioversion. He was having a good bit of bronchospasm yesterday. He sounds much better today. He tolerated to CPAP trial yesterday. His PCO2 is somewhat elevated. He is on Diamox. We will put him on a CPAP trial this morning and check blood gases and mechanics. Hopefully we can get him extubated. He does have a right lower lobe infiltrate on his x-ray but it looks better than yesterday. We were able to get the patient extubated yesterday. He has an elevated PCO2 around 52. Suspect this is due to severe COPD with chronic respiratory failure. Probably also has sleep apnea. He has a right lower lobe bronchopneumonia radiographically. He is on Zosyn. His sputum is growing a gram-negative diplococci. 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 Continue Zosyn for now. He can be moved to the floor. His glucoses are a little high. We will reduce Solu-Medrol and increase his Humulin N. 04/28/2016 ABGs show PO2 55 PCO2 of 50 had a normal pH. He has chronic respiratory failure and hypoxemia. Requirement for O2 at home is marginal. I suspect his PO2 will come up as he gets over his pneumonia little further. He is getting PFTs today. We'll decide then about what type of controller medication he will need. Changing to oral medications. Could probably be discharged tomorrow from pulmonary standpoint. 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 We'll be difficult for him to do pulmonary rehabilitation at present. He's advised that the most important thing is to stop smoking. Exam (Progress Note) - Constitutional Vitals: Period Temp Pulse Resp BP Sys/Parker Pulse Ox Last 24 Hr 97.6 F-99.6 F 92-114 16-20 109-139/62-87 92-100 Exam: Patient is responsive, alert, moving all 4 extremities and answering questions. Vital signs normal. Pupils react to light. Neck supple no bruits. Chest reveals prolonged expiratory phase. He's not tight. Heart normal rate, irreg rhythm no murmurs. Abdomen soft no masses. Remedies no clubbing cyanosis edema. Results - Labs CBC & BMP: 04/23/16 03:24 04/24/16 05:51 Lab Results: I have reviewed the past 24 hour labs Assessment and Plan (1) Diabetes mellitus Status: Acute Assessment and plan: Currently on sliding scale insulin. I'm going to add Solu-Medrol. We will need to add some long-acting insulin. 04/24/2016 blood sugars well controlled. 04/25/2016 blood sugars are running in the 300s. We will reduce Solu-Medrol and increase Humulin N. Patient started on a diet yesterday. 04/28/2016 glucoses in the low 200s. Changed to oral prednisone. Continuing on human in and is now on oral diet. Current Visit: Yes (2) COPD with acute exacerbation Status: Acute Assessment and plan: He's been wheezing since admission. Long-term smoker. Apparent chronic hypercarbia. I suspect he has pretty severe COPD. We'll treat for exacerbation with antibiotics steroids bronchodilators. Not clear what he has a bronchopneumonia in the right lower lobe versus congestive heart failure. His white blood count is 11,900. He does not have any fever. 04/24/2016 chest sounds better. Continue steroids Zosyn and bronchodilators. Hopefully can wean today. 04/25/2016 probably has severe COPD. Long-term smoker. Acute bronchitis and bronchospasm. Hypercarbia. We'll plan to do PFTs first of next week. 04/28/2016 PFTs do today. ABG show hypoxemia and chronic respiratory failure. Long discussion about the requirement that he stop smoking and options of how to manage that. Current Visit: Yes (3) New onset atrial fibrillation Status: Acute Assessment and plan: He had cardioversion yesterday and converted to sinus rhythm but has converted back to atrial fibrillation. Echo has shown borderline normal LV function and no clots no valvular disease. Patient is on eliquis. 04/24/2016 he is in atrial fibrillation but has a controlled rate. 04/25/2016 patient remains in atrial fibrillation but his rate is controlled. 04/28/2016 controlled rate. Defer to cardiology. Current Visit: Yes (4) Congestive heart failure Status: Acute Assessment and plan: Probably mild congestive heart failure. Defer to cardiology. 04/25/2016 defer to cardiology on further management of left ventricular dysfunction. Current Visit: Yes (5) Acute and chronic respiratory failure Status: Acute Assessment and plan: Has elevated PCO2. I suspect he has pretty severe COPD. He is on Diamox. Plan to try to wean off the ventilator this morning. 04/25/2016 PCO2 was 52 post extubation. We have him on Diamox for another day or so. Probably has severe COPD. May also have sleep apnea. We'll plan PFTs Thursday. Recheck ABGs then t00. 04/28/2016 has chronic ventilatory failure and hypoxemia. Probably will not require oxygen at discharge. Current Visit: Yes (6) Unspecified sleep apnea Status: Acute Assessment and plan: Will need BiPAP on standby for possible use postextubation. 04/25/2016 we have not required BiPAP. We'll need sleep study when he is over the acute exacerbation. Dr. Dong will direct that. 04/28/2016 Dr. Dong is addressing. Current Visit: Yes Specialty Discharge - Follow Up or Referrals
[2016-04-28 09:05] LABS: Basophils % 0.1 % (0.0-0.8); Eosinophils % 0.1 % (0.00-10.9); Hemoglobin 15.4 GM/DL (14.0-18.0); Immature Granulocytes % 0.3 %; Immature Granulocytes Absolute 0.03 #; Lymphocytes # 0.9 10*3/uL (1.4-4.0); Lymphocytes % 9.3 % (21.2-54.2); Mean Corpuscular HGB Conc 32.1 GM/DL (32-36); Mean Corpuscular Hemoglobin 31 PG (27-34); Mean Corpuscular Volume 95.6 FL (87-102); Mean Platelet Volume 11.7 FL (9.6-12.0); Monocytes # 0.5 10*3/uL (0.11-0.8); Monocytes % 5.5 % (1.7-12.7); Neutrophils % 84.7 % (38.7-73.9); Platelet Count 164 10*3/uL (130-400); Red Blood Count 5.02 10*6/uL (3.8-5.5); Red Cell Distribution Width 11.9 % (9.3-17.3); White Blood Count 9.5 10*3/uL (4.5-13.71)
[2016-04-28] MEDS: predniSONE 20 MG TABLET PO SCH (09:06)
[2016-04-28] MEDS: AMOXICILLIN/CLAV 500 MG TABLET PO SCH ×3 (09:07→20:26)
[2016-04-28] MEDS: ASPIRIN EC 81 MG TABLET PO SCH (09:07)
[2016-04-28] MEDS: METOPROLOL SUCCINATE XL 50 MG TABLET PO SCH ×2 (09:07→20:27)
[2016-04-28] MEDS: metFORMIN 500 MG TABLET PO SCH ×2 (09:07→16:39)
[2016-04-28] MEDS: PANTOPRAZOLE 40 MG TABLET PO SCH (09:07)
[2016-04-28] MEDS: ASCORBIC ACID 500 MG TABLET PO SCH ×2 (09:07→20:27)
[2016-04-28] MEDS: APIXABAN 5 MG TABLET PO SCH ×2 (09:07→20:26)
[2016-04-28] MEDS: DILTIAZEM CD 120 MG CAPSULE PO SCH (09:08)
[2016-04-28] MEDS: INSULIN NPH/REGULAR 70/30 100 UNIT/ML SUBCUT SCH ×2 (09:10→16:39)
[2016-04-28] MEDS: INSULIN REGULAR 100 UNIT/ML SUBCUT SCH ×4 (09:11→21:11)
--- NOTE | 2016-04-28 09:11 | XRay Report ---
Chest, 2 views History is followup right lower lobe pneumonia Comparison 04/25/2016 The heart is mildly enlarged. Mild upper lobe vascular prominence remains but is improved. Calcified hilar nodes again seen There has been interval improvement of prior bilateral pulmonary opacities. There remain mild patchy and interstitial opacities in the lower half the chest bilaterally with some minimal hazy opacity at the right lung base remaining. Mild thickening of the fissures remains Impression: Interval improvement with mild residual interstitial infiltrates versus edema PROCEDURE INTERPRETED AT [facility] DEPARTMENT OF RADIOLOGY Final Report Signed by: Dr. Earnestine Strickland
[2016-04-28 09:34] LABS: Calcium 8.4 MG/DL (8.5-10.1); Magnesium 1.9 MG/DL (1.8-2.4); Potassium 4.3 MMOL/L (3.5-5.1)
[2016-04-28] MEDS: PIPERACILLIN/TAZOBACTAM 3,375 MG in SODIUM CHLORIDE 0.9% 100 ML IV SCH (09:38)
--- NOTE | 2016-04-28 11:53 | Discharge Summary ---
<Callie Cox - Last Filed: 04/29/16 12:15> Hospital Course - Hospital Course Hospital Course: Mr. Morgan, 65WM, was admitted by Dr. Wilkins April 19, 2016 after being evaluated in the Emergency Department [facility]. He had previously been treated for CAD by Dr. Matthew many years ago for VA but had not followed up with the farm advisor since Dr. Matthew left [place]. History of COPD, NIDDM (uncontrolled), CAD with remote [place] and stents in [address] Matthew at [place]. He was admitted for swelling and shortness of breath. He was found have a new onset of atrial fibrillation with rapid ventricular response, unknown duration. Patient underwent attempted DCCV the following morning performed by Dr. Martinez. Failed attempt 3. The following day, patient underwent attempted DCCV again without success. He was intubated and moved to our ICU and treated for pneumonia, COPD exacerbation and continued active fibrillation with rapid ventricular response. No stay, patient remained in atrial fibrillation and medications were adjusted for rate control. He is also being discharged home on Eliquis for stroke prevention During the patient's hospital stay, Dr. Damian was instrumental in the patient' s pulmonary health. PFTS revelaed: severe obstruction with FEV1 about 40% of predicted. He has severe COPD. I was given a handwritten prescription for Anoro 1 puff daily. F/U appointment with Dr. Damian in one month. His COPD is so severe, he should qualify for disability per Dr. Damian' report. Dr. Dong also saw patient for sleep disorder. He did have HST evaluation during hospitalization and Dr. Dong reviewed that study. He had no significant oxygen desaturation on that study. This study was ordered with supplemental oxygen he was prescribed. This could represent a false negative study since he was on supplemental oxygen. Dr. Dong recommended reevaluation without oxygen therapy prior to bringing him in for polysomnography for a false negative result. Patient is anxious for release home and is being discharged home in stable condition. He will be given a 1-2 week follow-up with Dr. Wilkins. Patient does not have a primary care provider and I am getting him an appointment to see Dr. Jorgensen. - Time spent with patient Time with patient DS: Greater than 30 minutes Time spent discussing smoking cessation with patient: 3 to 10 minutes Diagnosis - Discharge Diagnosis (1) New onset atrial fibrillation Status: Chronic (2) Diabetes mellitus Status: Chronic (3) COPD with acute exacerbation Status: Chronic (4) Unspecified sleep apnea Status: Inactive (5) Acute and chronic respiratory failure Status: Resolved (6) Hypertension Status: Chronic (7) Dyslipidemia Status: Chronic (8) CAD (coronary artery disease) Status: Chronic Specialty Discharge - Follow Up or Referrals Follow up with: Raphael Wilkins MD [Physician] - 05/07/16 2:50 pm (EKG at visit) Terence Damian MD [Physician] - 06/09/16 2:00 pm Billie Jorgensen M.D. [Physician] - (1 week RE: primary care needs) Discharge Plan - Discharge Data Disposition: Disch To Home/Self Care Condition at Discharge: Stable Discharge Diet: heart healthy Activity: resume usual activities as tolerated Hygiene: no restrictions Weight Bearing at Discharge: full weight bearing Driving: no restrictions Contact your physician if you experience:: fever over 101, Difficulty voiding, Redness or swelling, Nausea/Vomiting, Shortness of breath, Bleeding, pain uncontrolled by pain medications - Discharge Medications New Apixaban [Eliquis] 5 mg PO BID #60 tablet Ascorbic Acid Tab [Vitamin C Tab] 1,000 mg PO BID #60 tablet Digoxin Tab [Lanoxin Tab] 0.125 mg PO DAILY@1300 #30 tablet predniSONE TAB [PredniSONE] 20 mg PO DAILY #10 tablet Aspirin EC Tab 81 mg PO DAILY #30 tablet Atorvastatin [Lipitor] 40 mg PO BEDTIME #30 tablet Diltiazem Cd Cap [Cardizem CD] 300 mg PO BEDTIME #30 capsule Insulin NPH/Regular 70/30 [HumuLIN 70/30] 12 unit SUBCUT BIDAC #1 bottle Metoprolol Succinate Xl [Toprol Xl] 50 mg PO BID #60 tablet metFORMIN [Glucophage] 500 mg PO BID W/MEALS #60 tablet - Follow Up or Referral Follow Up: Terence Damian MD [Physician] - 06/09/16 2:00 pm Raphael Wilkins MD [Physician] - 05/07/16 2:50 pm (EKG at visit) Billie Jorgensen M.D. [Physician] - (1 week RE: primary care needs) - Forms/Instructions Instructions: Atrial Fibrillation (GEN), Transesophageal Echocardiogram (GEN), How to Stop Smoking (GEN), Heart Healthy Diet (GEN) Exam - Constitutional Vitals: Period Temp Pulse Resp BP Sys/Parker Pulse Ox Last 24 Hr 97.6 F-98.8 F 79-113 17-20 111-121/54-71 92-99 Exam: General: Appears well with no apparent distress. Pleasant and cooperative. Appears comfortable. HEENT: PERRL, normocephalic, atraumatic. Mucous membranes moist. No jaundice noted. Conjunctiva moist and clear, sclerae anicteric Neck: No JVD/HJR, no thyromegaly or lymphadenopathy noted. No carotid bruit appreciated Cardiac: Irregularly irregular rhythm, rate 90 bpm. Regular rate and rhythm. No murmur rub or gallop. Lungs: Rhonchi noted throughout all lobes. No accessory muscle use to assist the respiratory pattern. Not using oxygen at this time. Abdomen: Soft, bowel sounds normoactive. Nontender and nondistended. No abdominal bruit or thrill noted. No masses noted. Musculoskeletal: No fluid collection. Decreased range of motion is noted. Extremities: No clubbing, cyanosis noted. No edema noted. Upper extremity pulses 2+. Lower extremity pulses 2+. Capillary refill less than 3 seconds. Skin: No unusual lesions or rashes. No skin breakdown appreciated. Neuro: Awake, alert and oriented 3. Moves all extremities well without hemiparesis or paralysis. No essential tremor is appreciated. Discharge Results Procedures and tests throughout hospitalization: Pending Orders 04/23/16 08:00 Sputum Culture and Gram Stain Routine Labs on day of discharge: Labs from last 24 hours 04/29/16 04/29/16 04/29/16 11:06 07:34 03:46 WBC RBC Hgb Hct MCV MCH MCHC RDW Plt Count MPV Neut % (Auto) Lymph % (Auto) [place] % (Auto) Eos % (Auto) Baso % (Auto) Neut # (Auto) Lymph # (Auto) [place] # (Auto) Eos # (Auto) Baso # (Auto) Immature Gran % Nucleated RBC % Immature Gran # Nucleated RBCs # Sodium 146 H Potassium 3.5 Chloride 106 Carbon Dioxide 30 Anion Gap 13.5 BUN 13 Creatinine 0.70 GFR Calculation 130 BUN/Creatinine Ratio 18.00 Glucose 226 H POC Glucose 222 H 196 H Calculated Osmolality 296.6 Calcium 7.7 L Magnesium 1.8 04/29/16 04/28/16 03:46 20:27 WBC 9.1 RBC 4.79 Hgb 14.2 Hct 44.5 MCV 92.9 MCH 30 MCHC 31.9 L RDW 12.0 Plt Count 175 MPV 11.9 Neut % (Auto) 72.7 Lymph % (Auto) 18.2 L [place] % (Auto) 8.4 Eos % (Auto) 0.4 Baso % (Auto) 0.0 Neut # (Auto) 6.6 Lymph # (Auto) 1.7 [place] # (Auto) 0.8 Eos # (Auto) 0.0 Baso # (Auto) 0.0 Immature Gran % 0.3 Nucleated RBC % 0.0 Immature Gran # 0.03 Nucleated RBCs # 0.00 Sodium Potassium Chloride Carbon Dioxide Anion Gap BUN Creatinine GFR Calculation BUN/Creatinine Ratio Glucose POC Glucose 262 H Calculated Osmolality Calcium Magnesium Preliminary micro results at discharge 04/23/16 08:00 Sputum Culture - Preliminary Sputum Gram Negative Diplococci - Imaging and Cardiology Procedure: Chest x-ray: report reviewed by me DS: Provider Date of admission: 04/19/16 12:06 Primary care physician: . No PCP Attending physician on admission: Hugh Steven MD Consults: 04/20/16 11:39 Consult to Cardiac Rehabilitation [CONS] Routine Reason for Cardiac Rehabilitation: Risk Factor Modification Consult to Case Mgmt/Social Srvs [CONS] Routine Reason for Case Mgmt/Social Srvs: Other Consult Comment: needs insurance 04/22/16 17:53 Consult to Physician [CONS] Routine Comment: sp code blue. manage vent Consulting Provider: Terence Damian When should Consulting Provider be notified: Now Person Notified: dr damian Date Notified: 04/22/16 Time Notified: 18:50 Consult Notification Comment: notified of consult 04/23/16 08:00 Consult to Sleep Center [CONS] Routine Reason for Sleep Center: Sleep Center Physician Consult Comment: NAN 04/23/16 08:07 Consult to Sleep Center [CONS] Routine Reason for Sleep Center: Sleep Center Physician Consult Comment: obesity, somnolence, witnessed apnea, recent A. fib Discharging clinician: Callie Cox NP <Sharon Murphy - Last Filed: 04/29/16 19:47> Hospital Course - Hospital Course Hospital Course: I personally interviewed and examined the patient, reviewed the chart and discussed medical decision-making with practitioner Brooke. I have read this document and agree with its findings.
--- NOTE | 2016-04-28 11:59 | Cardiology Progress Note ---
<Callie Cox E - Last Filed: 04/28/16 12:20> Assessment and Plan - Time spent with patient Time spent with patient: Less than 30 minutes (1) Hypertension Status: Chronic Assessment and plan: Continue current plan of care. Current Visit: Yes (2) Dyslipidemia Status: Chronic Assessment and plan: Continue current plan of care Current Visit: Yes (3) CAD (coronary artery disease) Status: Chronic Assessment and plan: History of remote [place] 7-8 years ago. Current Visit: Yes Qualifiers: Coronary Disease-Associated Artery/Lesion type: [place] artery (4) Acute and chronic respiratory failure Status: Resolved Assessment and plan: Off ventilator and improving daily Current Visit: Yes (5) COPD with acute exacerbation Status: Acute Assessment and plan: Improved. PFTs today Current Visit: Yes (6) Diabetes mellitus Status: Chronic Assessment and plan: Continue current plan of care Current Visit: Yes (7) New onset atrial fibrillation Status: Acute Assessment and plan: Continue current plan of care Current Visit: Yes (8) Unspecified sleep apnea Status: Chronic Assessment and plan: Dr. Dong managing Current Visit: Yes Cardiology - PN: Subj Interval history: Mr. Morgan, 65WM, was admitted by Dr. Wilkins April 19, 2016 after being evaluated in the emergency Department [facility]. He had previously been treated for CAD by Dr. Matthew but had not followed up with the melter caster since Dr. Matthew left [place]. History of COPD, NIDDM, CAD with remote [place] and stents in [address] Matthew at [place]. He was admitted for swelling and shortness of breath. He was found have a new onset of atrial fibrillation with rapid ventricular response, unknown duration. Patient underwent attempted DC CV the following morning performed by Dr. Burdick. Failed attempt 3. The following day, patient underwent attempted DCCV without success. He was intubated and moved to our ICU and treated for pneumonia, COPD exacerbation and continued active fibrillation with rapid ventricular response. Dr. Damian saw patient this morning and recommended pulmonary function studies. He will read today and make additional recommendations regarding medications at discharge tomorrow. Augmentin and prednisone was initiated today. Dr. Dong had discussed the possibility of HST this evening and we will touch base with sleep medicine to see if this is an option to be performed tonight. Hopefully, patient will be ready for discharge home tomorrow. Agents blood pressure may tolerate an increase in his calcium channel bernadette in an effort to better control his heart rate. He is also taking digoxin and consideration could be given to given him an additional dose today. He is on metoprolol succinate twice a day. He does have COPD with a history of wheezing therefore will not increase metoprolol. He is not actively wheezing today. Patient does not have health insurance coverage therefore I do not think that Bystolic would not be an option as it is so expensive. Exam (Progress Note) - Constitutional Vitals: Period Temp Pulse Resp BP Sys/Parker Pulse Ox Last 24 Hr 97.6 F-99.6 F 92-114 16-20 109-139/62-87 92-100 Exam: General: Appears well with no apparent distress. Pleasant and cooperative. Appears comfortable. HEENT: PERRL, normocephalic, atraumatic. Mucous membranes moist. No jaundice noted. Conjunctiva moist and clear, sclerae anicteric Neck: No JVD/HJR, no thyromegaly or lymphadenopathy noted. No carotid bruit appreciated Cardiac: Irregularly irregular rhythm, rate 90 bpm. Regular rate and rhythm. No murmur rub or gallop. Lungs: Rhonchi noted throughout all lobes. No accessory muscle use to assist the respiratory pattern. Not using oxygen at this time. Abdomen: Soft, bowel sounds normoactive. Nontender and nondistended. No abdominal bruit or thrill noted. No masses noted. Musculoskeletal: No fluid collection. Decreased range of motion is noted. Extremities: No clubbing, cyanosis noted. No edema noted. Upper extremity pulses 2+. Lower extremity pulses 2+. Capillary refill less than 3 seconds. Skin: No unusual lesions or rashes. No skin breakdown appreciated. Neuro: Awake, alert and oriented 3. Moves all extremities well without hemiparesis or paralysis. No essential tremor is appreciated. Result/EKG - Labs CBC & BMP: 04/28/16 08:59 04/28/16 08:59 Lab Results: I have reviewed the past 24 hour labs Labs: Laboratory Results - last 24 hr 04/27/16 04/27/16 04/27/16 12:37 15:47 20:00 WBC RBC Hgb Hct MCV MCH MCHC RDW Plt Count MPV Neut % (Auto) Lymph % (Auto) [place] % (Auto) Eos % (Auto) Baso % (Auto) Neut # (Auto) Lymph # (Auto) [place] # (Auto) Eos # (Auto) Baso # (Auto) Immature Gran % Nucleated RBC % Immature Gran # Nucleated RBCs # ABG pH ABG pCO2 ABG pO2 ABG HCO3 ABG Total CO2 ABG O2 Saturation ABG Base Excess FiO2 Sodium Potassium Chloride Carbon Dioxide Anion Gap BUN Creatinine GFR Calculation BUN/Creatinine Ratio Glucose POC Glucose 266 H 232 H 211 H Calculated Osmolality Calcium Magnesium 04/28/16 04/28/16 04/28/16 03:15 07:33 08:59 WBC 9.5 RBC 5.02 Hgb 15.4 Hct 48.0 MCV 95.6 MCH 31 MCHC 32.1 RDW 11.9 Plt Count 164 MPV 11.7 Neut % (Auto) 84.7 H Lymph % (Auto) 9.3 L [place] % (Auto) 5.5 Eos % (Auto) 0.1 Baso % (Auto) 0.1 Neut # (Auto) 8.0 H Lymph # (Auto) 0.9 L [place] # (Auto) 0.5 Eos # (Auto) 0.0 Baso # (Auto) 0.0 Immature Gran % 0.3 Nucleated RBC % 0.0 Immature Gran # 0.03 Nucleated RBCs # 0.00 ABG pH 7.388 ABG pCO2 50.4 H ABG pO2 55.5 L ABG HCO3 27.8 H ABG Total CO2 26.1 ABG O2 Saturation 89.7 L ABG Base Excess 4.1 H FiO2 21.00 Sodium Potassium Chloride Carbon Dioxide Anion Gap BUN Creatinine GFR Calculation BUN/Creatinine Ratio Glucose POC Glucose 234 H Calculated Osmolality Calcium Magnesium 04/28/16 08:59 WBC RBC Hgb Hct MCV MCH MCHC RDW Plt Count MPV Neut % (Auto) Lymph % (Auto) [place] % (Auto) Eos % (Auto) Baso % (Auto) Neut # (Auto) Lymph # (Auto) [place] # (Auto) Eos # (Auto) Baso # (Auto) Immature Gran % Nucleated RBC % Immature Gran # Nucleated RBCs # ABG pH ABG pCO2 ABG pO2 ABG HCO3 ABG Total CO2 ABG O2 Saturation ABG Base Excess FiO2 Sodium 143 Potassium 4.3 Chloride 105 Carbon Dioxide 29 Anion Gap 13.3 BUN 15 Creatinine 0.90 GFR Calculation 118 BUN/Creatinine Ratio 16.00 Glucose 286 H POC Glucose Calculated Osmolality 295.0 Calcium 8.4 L Magnesium 1.9 - Diagnostic Findings Procedure: Chest x-ray: report reviewed by me - EKG EKG results: interpreted by me EKG shows: atrial fibrillation Specialty Discharge - Follow Up or Referrals <Sharon Murphy - Last Filed: 04/28/16 14:13> Cardiology - PN: Subj Interval history: I personally interviewed and examined the patient, reviewed the chart and discussed medical decision-making with practitioner early. I have read her note and agree with the findings here in. I'm going to increase her calcium channel bernadette dose for better rate control. Exam (Progress Note) - Constitutional Vitals: Period Temp Pulse Resp BP Sys/Parker Pulse Ox Last 24 Hr 97.6 F-99.6 F 92-121 16-20 110-139/62-87 92-100 Result/EKG - Labs CBC & BMP: 04/28/16 08:59 04/28/16 08:59 Labs: Laboratory Results - last 24 hr 04/27/16 04/27/16 04/28/16 15:47 20:00 03:15 WBC RBC Hgb Hct MCV MCH MCHC RDW Plt Count MPV Neut % (Auto) Lymph % (Auto) [place] % (Auto) Eos % (Auto) Baso % (Auto) Neut # (Auto) Lymph # (Auto) [place] # (Auto) Eos # (Auto) Baso # (Auto) Immature Gran % Nucleated RBC % Immature Gran # Nucleated RBCs # ABG pH 7.388 ABG pCO2 50.4 H ABG pO2 55.5 L ABG HCO3 27.8 H ABG Total CO2 26.1 ABG O2 Saturation 89.7 L ABG Base Excess 4.1 H FiO2 21.00 Sodium Potassium Chloride Carbon Dioxide Anion Gap BUN Creatinine GFR Calculation BUN/Creatinine Ratio Glucose POC Glucose 232 H 211 H Calculated Osmolality Calcium Magnesium 04/28/16 04/28/16 04/28/16 07:33 08:59 08:59 WBC 9.5 RBC 5.02 Hgb 15.4 Hct 48.0 MCV 95.6 MCH 31 MCHC 32.1 RDW 11.9 Plt Count 164 MPV 11.7 Neut % (Auto) 84.7 H Lymph % (Auto) 9.3 L [place] % (Auto) 5.5 Eos % (Auto) 0.1 Baso % (Auto) 0.1 Neut # (Auto) 8.0 H Lymph # (Auto) 0.9 L [place] # (Auto) 0.5 Eos # (Auto) 0.0 Baso # (Auto) 0.0 Immature Gran % 0.3 Nucleated RBC % 0.0 Immature Gran # 0.03 Nucleated RBCs # 0.00 ABG pH ABG pCO2 ABG pO2 ABG HCO3 ABG Total CO2 ABG O2 Saturation ABG Base Excess FiO2 Sodium 143 Potassium 4.3 Chloride 105 Carbon Dioxide 29 Anion Gap 13.3 BUN 15 Creatinine 0.90 GFR Calculation 118 BUN/Creatinine Ratio 16.00 Glucose 286 H POC Glucose 234 H Calculated Osmolality 295.0 Calcium 8.4 L Magnesium 1.9 04/28/16 11:37 WBC RBC Hgb Hct MCV MCH MCHC RDW Plt Count MPV Neut % (Auto) Lymph % (Auto) [place] % (Auto) Eos % (Auto) Baso % (Auto) Neut # (Auto) Lymph # (Auto) [place] # (Auto) Eos # (Auto) Baso # (Auto) Immature Gran % Nucleated RBC % Immature Gran # Nucleated RBCs # ABG pH ABG pCO2 ABG pO2 ABG HCO3 ABG Total CO2 ABG O2 Saturation ABG Base Excess FiO2 Sodium Potassium Chloride Carbon Dioxide Anion Gap BUN Creatinine GFR Calculation BUN/Creatinine Ratio Glucose POC Glucose 235 H Calculated Osmolality Calcium Magnesium
[2016-04-28] MEDS: DIGOXIN 0.125 MG TABLET PO SCH (13:09)
--- NOTE | 2016-04-28 17:36 | Sleep Medicine Progress Note ---
Assessment and Plan (1) Unspecified sleep apnea Status: Chronic Assessment and plan: We will repeat HST evaluation without oxygen tonight and reassess with those findings. Current Visit: Yes (2) Diabetes mellitus Status: Chronic Current Visit: Yes (3) New onset atrial fibrillation Status: Acute Current Visit: Yes Sleep Medicine Subjective Interval history: Patient continues to improve. He states that he has been without oxygen therapy now for a couple of days. He did have HST evaluation on Thursday night and I reviewed that study today. He did not show any significant obstructive sleep apnea, having a normal AHI of less than 2. He had no significant oxygen desaturation on that study. This study was ordered with supplemental oxygen he was prescribed. This could represent a false negative study since he was on supplemental oxygen. I would recommend reevaluation without oxygen therapy prior to bringing him in for polysomnography for a false negative result. Exam (Progress Note) - Constitutional Vitals: Period Temp Pulse Resp BP Sys/Parker Pulse Ox Last 24 Hr 97.6 F-98.4 F 96-121 16-20 117-139/61-87 93-100 Exam: He is alert and responsive and communicating without difficulty. Chest with good air movement and no focal wheezes, rhonchi, or rales. Cardiac exam reveals a regular rhythm without murmur or gallop. Abdomen soft nontender extremities without increased edema. Neurologically, he is grossly intact. Results - Labs CBC & BMP: 04/28/16 08:59 04/28/16 08:59 Lab Results: I have reviewed the past 24 hour labs Specialty Discharge - Follow Up or Referrals Follow up with: Raphael Wilkins MD [Physician] - 1 Week (EKG at visit)
[2016-04-28] MEDS: ATORVASTATIN 40 MG TABLET PO SCH (20:27)
[2016-04-28] MEDS ORDERED: DILTIAZEM CD 240 MG CAPSULE PO ONE (21:00)
[2016-04-29] MEDS: ALBUTEROL/IPRATROPIUM 3 ML NEB RESP TX SCH ×2 (01:03→07:00)
[2016-04-29 04:47] LABS: Eosinophils % 0.4 % (0.00-10.9); Hematocrit 44.5 VOL% (42.0-52.0); Hemoglobin 14.2 GM/DL (14.0-18.0); Immature Granulocytes % 0.3 %; Immature Granulocytes Absolute 0.03 #; Lymphocytes # 1.7 10*3/uL (1.4-4.0); Lymphocytes % 18.2 % (21.2-54.2); Mean Corpuscular HGB Conc 31.9 GM/DL (32-36); Mean Corpuscular Hemoglobin 30 PG (27-34); Mean Corpuscular Volume 92.9 FL (87-102); Mean Platelet Volume 11.9 FL (9.6-12.0); Monocytes # 0.8 10*3/uL (0.11-0.8); Monocytes % 8.4 % (1.7-12.7); Neutrophils # 6.6 10*3/uL (1.4-7.4); Neutrophils % 72.7 % (38.7-73.9); Platelet Count 175 10*3/uL (130-400); Red Blood Count 4.79 10*6/uL (3.8-5.5); White Blood Count 9.1 10*3/uL (4.5-13.71)
[2016-04-29 05:17] LABS: Calcium 7.7 MG/DL (8.5-10.1); Magnesium 1.8 MG/DL (1.8-2.4); Osmolality,Calculated 296.6 MOS/KG (273-304); Potassium 3.5 MMOL/L (3.5-5.1)
--- NOTE | 2016-04-29 07:50 | Pulmonology Progress Note ---
Pulmonary - PN: Subj Interval history: This 65-year-old white male went into acute respiratory failure following cardioversion. He was having a good bit of bronchospasm yesterday. He sounds much better today. He tolerated to CPAP trial yesterday. His PCO2 is somewhat elevated. He is on Diamox. We will put him on a CPAP trial this morning and check blood gases and mechanics. Hopefully we can get him extubated. He does have a right lower lobe infiltrate on his x-ray but it looks better than yesterday. We were able to get the patient extubated yesterday. He has an elevated PCO2 around 52. Suspect this is due to severe COPD with chronic respiratory failure. Probably also has sleep apnea. He has a right lower lobe bronchopneumonia radiographically. He is on Zosyn. His sputum is growing a gram-negative diplococci. Curious as to what that will vehicle return associate to be. Continue Zosyn for now. He can be moved to the floor. His glucoses are a little high. We will reduce Solu-Medrol and increase his Humulin N. 04/28/2016 ABGs show PO2 55 PCO2 of 50 had a normal pH. He has chronic respiratory failure and hypoxemia. Requirement for O2 at home is marginal. I suspect his PO2 will come up as he gets over his pneumonia little further. He is getting PFTs today. We'll decide then about what type of controller medication he will need. Changing to oral medications. Could probably be discharged tomorrow from pulmonary standpoint. 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 We'll be difficult for him to do pulmonary rehabilitation at present. He's advised that the most important thing is to stop smoking. 04/29/2016 patient had PFTs. Show severe obstruction with FEV1 about 40% of predicted. He has severe COPD. I have left a prescription for Anoro 1 puff daily. I will see him back in the office in about a month. He is asking me about disability. I advised him to apply for it through Social Security. His PFTs are impaired severely enough that he should qualify, but that will be their decision to make. Clearly he needs to stop smoking as well. He says that he will do that. Exam (Progress Note) - Constitutional Vitals: Period Temp Pulse Resp BP Sys/Parker Pulse Ox Last 24 Hr 97.8 F-98.8 F 99-121 16-22 118-139/61-86 92-99 Exam: Patient is responsive, alert, and answering questions. Vital signs normal. Pupils react to light. Neck supple no bruits. Chest reveals prolonged expiratory phase. He's not tight. Heart normal rate, irreg rhythm no murmurs. Abdomen soft no masses. Remedies no clubbing cyanosis edema. Results - Labs CBC & BMP: 04/29/16 03:46 04/29/16 03:46 Lab Results: I have reviewed the past 24 hour labs Assessment and Plan (1) Diabetes mellitus Status: Chronic Assessment and plan: Currently on sliding scale insulin. I'm going to add Solu-Medrol. We will need to add some long-acting insulin. 04/24/2016 blood sugars well controlled. 04/25/2016 blood sugars are running in the 300s. We will reduce Solu-Medrol and increase Humulin N. Patient started on a diet yesterday. 04/28/2016 glucoses in the low 200s. Changed to oral prednisone. Continuing on humalin and is now on oral diet. Current Visit: Yes (2) COPD with acute exacerbation Status: Resolved Assessment and plan: He's been wheezing since admission. Long-term smoker. Apparent chronic hypercarbia. I suspect he has pretty severe COPD. We'll treat for exacerbation with antibiotics steroids bronchodilators. Not clear what he has a bronchopneumonia in the right lower lobe versus congestive heart failure. His white blood count is 11,900. He does not have any fever. 04/24/2016 chest sounds better. Continue steroids Zosyn and bronchodilators. Hopefully can wean today. 04/25/2016 probably has severe COPD. Long-term smoker. Acute bronchitis and bronchospasm. Hypercarbia. We'll plan to do PFTs first of next week. 04/28/2016 PFTs due today. ABG show hypoxemia and chronic respiratory failure. Long discussion about the requirement that he stop smoking and options of how to manage that. 04/29/2016 PFTs show severe COPD. I have left prescription for Anoro. He says that he will stop smoking. He can be discharged to take Augmentin for 5 more days, and prednisone 40 mg daily for 5 more days. I will follow-up in the office. At the present time I do not think he will need oxygen at home. We will reassess O2 sat on return. Defer to Dr. Dong as far as needs for sleep apnea evaluation and treatment. Current Visit: Yes (3) New onset atrial fibrillation Status: Acute Assessment and plan: He had cardioversion yesterday and converted to sinus rhythm but has converted back to atrial fibrillation. Echo has shown borderline normal LV function and no clots no valvular disease. Patient is on eliquis. 04/24/2016 he is in atrial fibrillation but has a controlled rate. 04/25/2016 patient remains in atrial fibrillation but his rate is controlled. 04/28/2016 controlled rate. Defer to cardiology. Current Visit: Yes (4) Congestive heart failure Status: Acute Assessment and plan: Probably mild congestive heart failure. Defer to cardiology. 04/25/2016 defer to cardiology on further management of left ventricular dysfunction. Current Visit: Yes (5) Acute and chronic respiratory failure Status: Resolved Assessment and plan: Has elevated PCO2. I suspect he has pretty severe COPD. He is on Diamox. Plan to try to wean off the ventilator this morning. 04/25/2016 PCO2 was 52 post extubation. We have him on Diamox for another day or so. Probably has severe COPD. May also have sleep apnea. We'll plan PFTs Thursday. Recheck ABGs then t00. 04/28/2016 has chronic ventilatory failure and hypoxemia. Probably will not require oxygen at discharge. 04/29/2016 now that he is over the acute exacerbation, he does not appear that he will require oxygen. Current Visit: Yes (6) Unspecified sleep apnea Status: Chronic Assessment and plan: Will need BiPAP on standby for possible use postextubation. 04/25/2016 we have not required BiPAP. We'll need sleep study when he is over the acute exacerbation. Dr. Dong will direct that. 04/28/2016 Dr. Dong is addressing. Current Visit: Yes Specialty Discharge - Follow Up or Referrals Follow up with: Raphael Wilkins MD [Physician] - 1 Week (EKG at visit)
[2016-04-29] MEDS: metFORMIN 500 MG TABLET PO SCH (08:32)
[2016-04-29] MEDS: APIXABAN 5 MG TABLET PO SCH (08:32)
[2016-04-29] MEDS: PANTOPRAZOLE 40 MG TABLET PO SCH (08:32)
[2016-04-29] MEDS: predniSONE 20 MG TABLET PO SCH (08:32)
[2016-04-29] MEDS: METOPROLOL SUCCINATE XL 50 MG TABLET PO SCH (08:32)
[2016-04-29] MEDS: ASCORBIC ACID 500 MG TABLET PO SCH (08:32)
[2016-04-29] MEDS: INSULIN REGULAR 100 UNIT/ML SUBCUT SCH ×2 (08:33→11:58)
[2016-04-29] MEDS: ASPIRIN EC 81 MG TABLET PO SCH (08:33)
[2016-04-29] MEDS: AMOXICILLIN/CLAV 500 MG TABLET PO SCH (08:33)
[2016-04-29] MEDS: INSULIN NPH/REGULAR 70/30 100 UNIT/ML SUBCUT SCH (08:33)
[2016-04-29 11:37] VITALS: BP 111/54
[2016-04-29] MEDS: DIGOXIN 0.125 MG TABLET PO SCH (12:00)
[2016-04-29] MEDS ORDERED: DILTIAZEM CD 300 MG CAPSULE PO SCH (21:00)
== END 2016-04-29 14:15 | disposition home or self-care (01) | DRG 308 ==
LOC: EDBD → EDUNIT# → N.ED 10:19 → N.EDINP 12:06 → N.TELES 13:44 → N.ICU 04-22 18:09 → N.TELES 04-25 13:33
PROVIDERS: ADMIT Internal Medicine Cardiovascular Disease; ATTEND Internal Medicine Cardiovascular Disease

== ENCOUNTER 2017-05-07 07:34 | Inpatient (IN) ==
[2017-05-07] MEDS ORDERED: DILTIAZEM 50 MG/10 ML VIAL IV ONE (07:41)
[2017-05-07] MEDS ORDERED: DILTIAZEM 100 MG VIAL.ADD IV ONE ×2 (07:41→12:23)
[2017-05-07] MEDS ORDERED: SODIUM CHLORIDE 0.9% 100 ML IV ONE ×2 (07:42→12:23)
[2017-05-07] MEDS ORDERED: DILTIAZEM 50 MG/10 ML VIAL IV STA ×2 (07:44→08:42)
[2017-05-07] MEDS: DILTIAZEM INJ 100 MG in SODIUM CHLORIDE 0.9% 100 ML IV SCH ×2 (07:52→18:27)
[2017-05-07 08:12] LABS: Basophils % 0.2 % (0.0-0.8); Hematocrit 44.8 VOL% (42.0-52.0); Hemoglobin 15.1 GM/DL (14.0-18.0); Immature Granulocytes Absolute 0.23 #; Lymphocytes # 1.2 10*3/uL (1.4-4.0); Lymphocytes % 5.2 % (21.2-54.2); Mean Corpuscular HGB Conc 33.7 GM/DL (32-36); Mean Corpuscular Hemoglobin 32 PG (27-34); Mean Corpuscular Volume 94.3 FL (87-102); Mean Platelet Volume 11.9 FL (9.6-12.0); Monocytes % 8.9 % (1.7-12.7); Neutrophils # 18.9 10*3/uL (1.4-7.4); Neutrophils % 84.7 % (38.7-73.9); Platelet Count 271 T/CUMM (130-400); Red Blood Count 4.75 MC/CUMM (3.8-5.5); Red Cell Distribution Width 12.8 % (9.3-17.3); White Blood Count 22.3 T/CUMM (4-12)
[2017-05-07 08:22] LABS: INR 1.1
[2017-05-07 08:52] LABS: Albumin 3.5 G/DL (3.4-5.0); Bilirubin,Total 1.7 MG/DL (0.2-1.0); Calcium 8.8 MG/DL (8.5-10.1); Osmolality,Calculated 285.2 MOS/KG (273-304); Potassium 4.5 MMOL/L (3.5-5.1); Thyroid Stimulating Hormone 1.93 uIU/ml (0.358-3.74); Total Protein 7.4 G/DL (6.4-8.3)
[2017-05-07 08:58] LABS: Eosinophils 2 % (0-10); Lymphocytes 7 % (20-55); Myelocytes 1 %; Segmented Neutrophils 81 % (50-85); Total Cells Counted 100
[2017-05-07 08:59] LABS: Hypochromasia 1+
[2017-05-07] MEDS ORDERED: ENOXAPARIN 100 MG/ML SYRINGE SUBCUT STA (09:16)
[2017-05-07] MEDS ORDERED: ASPIRIN CHEW 81 MG TABLET PO STA (09:16)
[2017-05-07] MEDS ORDERED: HEPARIN 5,000 UNIT/1 ML VIAL IV STA (09:18)
[2017-05-07] MEDS ORDERED: HEPARIN DRIP 25,000 UNITS/500 ML PREMIX IV SCH (09:30)
[2017-05-07] MEDS ORDERED: ASPIRIN 325 MG TABLET ONE (09:30)
[2017-05-07] MEDS ORDERED: DIGOXIN 0.5 MG/2 ML AMP ONE (10:25)
[2017-05-07] MEDS ORDERED: ONDANSETRON 4 MG/2 ML VIAL IV PRN (10:40)
[2017-05-07] MEDS ORDERED: LACTULOSE 20 GM/30 ML UDCUP PO PRN (10:40)
[2017-05-07] MEDS ORDERED: diphenhydrAMINE CAP 25 MG CAPSULE PO PRN (10:40)
[2017-05-07] MEDS ORDERED: MAGNESIUM SULF RIDER 2 GM in PREMIX 1 EACH IV PRN (10:40)
[2017-05-07] MEDS ORDERED: POTASSIUM CHLORIDE 20 MEQ TABLET PO PRN (10:40)
[2017-05-07] MEDS ORDERED: ZALEPLON 5 MG CAPSULE PO PRN (10:40)
[2017-05-07] MEDS ORDERED: DOCUSATE SODIUM 100 MG CAPSULE PO PRN (10:40)
[2017-05-07] MEDS ORDERED: guaiFENesin/DM ER 600-30 MG TABLET PO PRN (10:40)
[2017-05-07] MEDS ORDERED: DIGOXIN 0.5 MG/2 ML AMP IV STA (10:45)
[2017-05-07] MEDS: PANTOPRAZOLE 40 MG TABLET PO SCH (10:50)
[2017-05-07] MEDS: LEVALBUTEROL 0.63 MG/3 ML NEB RESP TX SCH ×2 (11:15→20:06)
[2017-05-07] MEDS ORDERED: DEXTROSE 50% 25 GM/50 ML VIAL IV PRN (11:17)
[2017-05-07] MEDS ORDERED: GLUCAGON 1 MG VIAL IM PRN (11:17)
[2017-05-07] MEDS: INSULIN LISPRO 100 UNIT/ML SUBCUT SCH ×3 (12:59→21:12)
[2017-05-07] MEDS: DIGOXIN 0.125 MG TABLET PO SCH (13:00)
[2017-05-07 13:03] LABS: CKMB % 8.8 %
[2017-05-07] MEDS ORDERED: NITROGLYCERIN 2% OINT 1 INCH/GM PACK TOP STA (13:15)
[2017-05-07] MEDS ORDERED: diphenhydrAMINE CAP 25 MG CAPSULE PO ONE ×2 (13:16→13:20)
[2017-05-07] MEDS ORDERED: DIAZEPAM 5 MG TABLET ONE (13:17)
[2017-05-07] MEDS ORDERED: DIAZEPAM 5 MG TABLET PO ONE (13:20)
[2017-05-07] MEDS ORDERED: SODIUM CHLORIDE 0.9% 1,000 ML IV SCH (13:30)
[2017-05-07] MEDS ORDERED: LIDOCAINE 2% 20 ML VIAL ONE (13:50)
[2017-05-07] MEDS ORDERED: MAGNESIUM SULF RIDER 4 GM in PREMIX 1 EACH IV PRN (14:00)
[2017-05-07] MEDS ORDERED: MEPERIDINE 25 MG/1 ML VIAL ONE (14:01)
[2017-05-07] MEDS ORDERED: HEPARIN 5,000 UNIT/1 ML VIAL ONE (14:31)
[2017-05-07] MEDS ORDERED: TIROFIBAN 5,000 MCG/100 ML PREMIX IV ONE (14:32)
[2017-05-07] MEDS ORDERED: TIROFIBAN 5,000 MCG/100 ML PREMIX IV SCH (14:41)
[2017-05-07] MEDS ORDERED: TICAGRELOR 90 MG TABLET ONE (14:47)
[2017-05-07] MEDS ORDERED: DOBUTamine 0 MG/0 ML PREMIX IV ONE (15:00)
[2017-05-07] MEDS ORDERED: DOBUTamine 500 MG/250 ML PREMIX IV ONE (15:01)
[2017-05-07] MEDS ORDERED: DOBUTamine 500 MG/250 ML PREMIX IV SCH (15:04)
[2017-05-07] MEDS ORDERED: fentaNYL 100 MCG/2 ML VIAL ONE (15:09)
[2017-05-07] MEDS ORDERED: PROPOFOL 1,000 MG/100 ML BOTTLE IV ONE (15:21)
[2017-05-07] MEDS: PROPOFOL 1,000 MG/100 ML BOTTLE IV SCH ×2 (15:28→19:44)
[2017-05-07] MEDS ORDERED: SUCCINYLCHOLINE 200 MG/10 ML VIAL ONE (15:34)
[2017-05-07] MEDS ORDERED: FAMOTIDINE 20 MG/2 ML VIAL IV ONE (15:34)
[2017-05-07] MEDS ORDERED: FUROSEMIDE 40 MG/4 ML VIAL IV ONE (16:23)
[2017-05-07 16:37] LABS: Apearance,Urine Slightly Hazy (Clear); Bacteria,Urine Occasional /HPF (Few); Bilirubin,Urine Negative (Negative); Blood, Urine Small mg/dL (Negative); Glucose,Urine (UA) 50 mg/dL (Negative); Ketones,Urine Negative (Negative); Mucus,Urine Occasional /LPF (Occasional); Nitrite,Urine Negative (Negative); Protein,Urine 30 MG/DL; RBC,Urine 3 /HPF (0-4); Urine Color Yellow (Yellow); Urine Specific Gravity > 1.060 (1.001-1.035); Urine Urobilinogen < 2.0 EU/DL (0.2-1.0); WBC,Urine 1 /HPF (0-6)
[2017-05-07 17:07] LABS: ABG Base Excess -6.9 MMOL/L (-2.5-2.5); ABG Oxygen Saturation 99.6 % (95-100); ABG PCO2 63.9 MM HG (35-48); Allen Test Positive; Pt O2 Delivery Device Ventilator
[2017-05-07 17:09] LABS: ABG PH 7.175 (7.35-7.45)
[2017-05-07 18:05] LABS: CKMB % 7.9 %
[2017-05-07] MEDS: TICAGRELOR 90 MG TABLET PO SCH (21:12)
[2017-05-07] MEDS: ASCORBIC ACID 500 MG TABLET PO SCH (21:12)
[2017-05-07] MEDS: METOPROLOL SUCCINATE XL 50 MG TABLET PO SCH (21:13)
[2017-05-07 22:32] LABS: ABG Base Excess -1.1 MMOL/L (-2.5-2.5); ABG HCO3 23.5 MMOL/L (20-26); ABG Oxygen Saturation 99.5 % (95-100); ABG PCO2 46.5 MM HG (35-48); ABG PH 7.341 (7.35-7.45); ABG TCO2 21.8 MMOL/L (23-27); Allen Test Positive; Pt O2 Delivery Device Ventilator
[2017-05-08] MEDS: DILTIAZEM INJ 100 MG in SODIUM CHLORIDE 0.9% 100 ML IV SCH ×4 (01:08→21:42)
[2017-05-08] MEDS: PROPOFOL 1,000 MG/100 ML BOTTLE IV SCH ×6 (01:21→22:24)
[2017-05-08 01:24] LABS: Basophils % 0.2 % (0.0-0.8); Hematocrit 41.9 VOL% (42.0-52.0); Hemoglobin 13.8 GM/DL (14.0-18.0); Immature Granulocytes % 1.4 %; Immature Granulocytes Absolute 0.24 #; Lymphocytes # 1.8 10*3/uL (1.4-4.0); Lymphocytes % 10.7 % (21.2-54.2); Mean Corpuscular HGB Conc 32.9 GM/DL (32-36); Mean Corpuscular Hemoglobin 32 PG (27-34); Mean Corpuscular Volume 96.8 FL (87-102); Mean Platelet Volume 12.1 FL (9.6-12.0); Monocytes # 1.5 10*3/uL (0.11-0.8); Monocytes % 8.9 % (1.7-12.7); NRBC # 0.02 10*3/uL; Neutrophils # 13.1 10*3/uL (1.4-7.4); Neutrophils % 78.8 % (38.7-73.9); Platelet Count 248 T/CUMM (130-400); Red Blood Count 4.33 MC/CUMM (3.8-5.5); Red Cell Distribution Width 12.9 % (9.3-17.3); White Blood Count 16.6 T/CUMM (4-12)
[2017-05-08] MEDS: LEVALBUTEROL 0.63 MG/3 ML NEB RESP TX SCH ×4 (01:30→20:02)
[2017-05-08 01:51] LABS: Calcium 7.8 MG/DL (8.5-10.1); Magnesium 2.3 MG/DL (1.8-2.4); Osmolality,Calculated 286.4 MOS/KG (273-304); Potassium 5.6 MMOL/L (3.5-5.1); Risk Ratio 3.98; VLDL CHOLESTEROL 61.6 MG/DL
[2017-05-08 02:04] LABS: CKMB % 3.5 %
[2017-05-08 02:07] LABS: Troponin I Only 58.6 NG/ML (0.00-0.045)
[2017-05-08 02:21] LABS: Band Neutrophils 5 % (0-10); Lymphocytes 14 % (20-55); Segmented Neutrophils 76 % (50-85); Total Cells Counted 100
[2017-05-08 02:22] LABS: Macrocytosis 2+; Platelet Estimate Normal
[2017-05-08 03:53] LABS: ABG Base Excess -1.9 MMOL/L (-2.5-2.5); ABG HCO3 23.7 MMOL/L (20-26); ABG Oxygen Saturation 98.6 % (95-100); ABG PCO2 43.6 MM HG (35-48); ABG PH 7.354 (7.35-7.45); ABG PO2 156.5 MM HG (80-95); ABG TCO2 25.1 MMOL/L (23-27)
[2017-05-08] MEDS: INSULIN LISPRO 100 UNIT/ML SUBCUT SCH ×4 (07:35→23:43)
[2017-05-08 08:24] LABS: CKMB % 1.1 %
[2017-05-08] MEDS ORDERED: SODIUM POLYSTYRENE SULFATE 15 GM/60 ML BOTTLE PO ONE (08:58)
[2017-05-08] MEDS: FUROSEMIDE 40 MG/4 ML VIAL IV SCH ×2 (10:07→16:31)
[2017-05-08] MEDS: PANTOPRAZOLE 40 MG VIAL IV SCH (10:18)
[2017-05-08] MEDS: ASCORBIC ACID 500 MG TABLET PO SCH ×2 (10:33→22:16)
[2017-05-08] MEDS: ASPIRIN EC 81 MG TABLET PO SCH (10:34)
[2017-05-08] MEDS: FOLIC ACID 1 MG TABLET PO SCH ×2 (10:35→22:16)
[2017-05-08] MEDS: TICAGRELOR 90 MG TABLET PO SCH ×2 (10:35→22:16)
[2017-05-08] MEDS: METOPROLOL TARTRATE 25 MG TABLET PO SCH ×2 (10:37→22:16)
[2017-05-08] MEDS: METOPROLOL SUCCINATE XL 50 MG TABLET PO SCH (10:46)
[2017-05-08] MEDS: PANTOPRAZOLE 40 MG TABLET PO SCH (10:46)
[2017-05-08] MEDS ORDERED: LEVOFLOXACIN INJ 500 MG in PREMIX 1 EACH IV ONE (12:30)
[2017-05-08] MEDS: MULTIVITAMIN LIQUID (CENTRUM) 60 ML BOTTLE PO SCH (13:02)
[2017-05-08] MEDS: DIGOXIN 0.125 MG TABLET PO SCH (13:03)
[2017-05-08] MEDS ORDERED: DIGOXIN 0.5 MG/2 ML AMP IV ONE (13:54)
[2017-05-08] MEDS ORDERED: ENOXAPARIN 100 MG/ML SYRINGE SUBCUT SCH (14:00)
[2017-05-08] MEDS ORDERED: VECURONIUM 10 MG VIAL IV PRN (14:57)
[2017-05-08] MEDS: HEPARIN DRIP 25,000 UNITS/500 ML PREMIX IV SCH (15:20)
[2017-05-08] MEDS: fentaNYL INJ 1,250 MCG in SODIUM CHLORIDE 0.9% 225 ML IV SCH (15:55)
[2017-05-08] MEDS ORDERED: HEPARIN 5,000 UNIT/1 ML VIAL IV ONE (22:30)
[2017-05-09] MEDS: LEVALBUTEROL 0.63 MG/3 ML NEB RESP TX SCH ×4 (02:00→20:45)
[2017-05-09 02:22] LABS: Basophils # 0.1 10*3/uL (0.0-0.2); Basophils % 0.5 % (0.0-0.8); Hematocrit 39.4 VOL% (42.0-52.0); Hemoglobin 13.2 GM/DL (14.0-18.0); Immature Granulocytes Absolute 0.56 #; Lymphocytes # 0.9 10*3/uL (1.4-4.0); Lymphocytes % 6.4 % (21.2-54.2); Mean Corpuscular HGB Conc 33.5 GM/DL (32-36); Mean Corpuscular Hemoglobin 32 PG (27-34); Mean Corpuscular Volume 95.6 FL (87-102); Monocytes % 7.3 % (1.7-12.7); NRBC # 0.21 10*3/uL; Neutrophils # 11.6 10*3/uL (1.4-7.4); Neutrophils % 81.8 % (38.7-73.9); Platelet Count 247 T/CUMM (130-400); Red Blood Count 4.12 MC/CUMM (3.8-5.5); Red Cell Distribution Width 13.1 % (9.3-17.3); White Blood Count 14.2 T/CUMM (4-12)
[2017-05-09] MEDS: PROPOFOL 1,000 MG/100 ML BOTTLE IV SCH ×5 (03:00→21:45)
[2017-05-09 03:46] LABS: Band Neutrophils 9 % (0-10); Lymphocytes 6 % (20-55); Myelocytes 6 %; Nucleated Red Blood Cells 2 (0-5); Segmented Neutrophils 79 % (50-85); Total Cells Counted 100
[2017-05-09 03:48] LABS: Platelet Estimate Normal
[2017-05-09 04:14] LABS: ABG Base Excess -3.6 MMOL/L (-2.5-2.5); ABG HCO3 21.4 MMOL/L (20-26); ABG Oxygen Saturation 95.6 % (95-100); ABG PCO2 54.3 MM HG (35-48); ABG PH 7.262 (7.35-7.45); ABG PO2 92.6 MM HG (80-95); ABG TCO2 21.8 MMOL/L (23-27); Allen Test Positive; Pt O2 Delivery Device Ventilator
[2017-05-09] MEDS: fentaNYL INJ 1,250 MCG in SODIUM CHLORIDE 0.9% 225 ML IV SCH ×2 (04:33→18:38)
[2017-05-09 05:04] LABS: Albumin 3.1 G/DL (3.4-5.0); Bilirubin,Total 0.8 MG/DL (0.2-1.0); Calcium 7.8 MG/DL (8.5-10.1); Osmolality,Calculated 299.1 MOS/KG (273-304); Potassium 4.9 MMOL/L (3.5-5.1)
[2017-05-09] MEDS: INSULIN LISPRO 100 UNIT/ML SUBCUT SCH ×4 (06:08→23:38)
[2017-05-09] MEDS: DILTIAZEM INJ 100 MG in SODIUM CHLORIDE 0.9% 100 ML IV SCH ×2 (06:11→18:40)
[2017-05-09] MEDS: FUROSEMIDE 40 MG/4 ML VIAL IV SCH (08:48)
[2017-05-09] MEDS: CLOPIDOGREL 75 MG TABLET PO SCH ×2 (09:39→10:29)
[2017-05-09] MEDS: ASCORBIC ACID 500 MG TABLET PO SCH ×3 (09:40→20:12)
[2017-05-09] MEDS: ASPIRIN EC 81 MG TABLET PO SCH ×2 (09:41→10:29)
[2017-05-09] MEDS: METOPROLOL TARTRATE 25 MG TABLET PO SCH ×2 (09:41→10:31)
[2017-05-09] MEDS: FOLIC ACID 1 MG TABLET PO SCH ×3 (09:41→20:12)
[2017-05-09] MEDS: MULTIVITAMIN LIQUID (CENTRUM) 60 ML BOTTLE PO SCH (09:42)
[2017-05-09] MEDS: ALBUTEROL/IPRATROPIUM 3 ML NEB RESP TX PRN ×2 (10:07→14:47)
[2017-05-09] MEDS: PANTOPRAZOLE 40 MG VIAL IV SCH (10:41)
[2017-05-09] MEDS: HEPARIN DRIP 25,000 UNITS/500 ML PREMIX IV SCH ×2 (11:19→16:54)
[2017-05-09] MEDS ORDERED: LEVOFLOXACIN INJ 250 MG in PREMIX 1 EACH IV SCH (12:30)
[2017-05-09] MEDS: DIGOXIN 0.125 MG TABLET PO SCH (15:03)
[2017-05-09] MEDS ORDERED: FUROSEMIDE 40 MG/4 ML VIAL IV SCH (15:53)
[2017-05-09] MEDS ORDERED: SODIUM CHLORIDE 0.9% 250 ML IV ONE (16:22)
[2017-05-09] MEDS: SODIUM CHLORIDE 0.9% 1,000 ML IV SCH (20:12)
[2017-05-10] MEDS: LEVALBUTEROL 0.63 MG/3 ML NEB RESP TX SCH ×4 (00:05→20:16)
[2017-05-10] MEDS: PROPOFOL 1,000 MG/100 ML BOTTLE IV SCH ×5 (02:11→21:07)
[2017-05-10] MEDS: DILTIAZEM INJ 100 MG in SODIUM CHLORIDE 0.9% 100 ML IV SCH ×4 (02:49→23:00)
[2017-05-10 03:27] LABS: ABG Base Excess -8.4 MMOL/L (-2.5-2.5); ABG HCO3 19.8 MMOL/L (20-26); ABG Oxygen Saturation 94.4 % (95-100); ABG PCO2 51.2 MM HG (35-48); ABG PO2 87.9 MM HG (80-95); ABG TCO2 21.4 MMOL/L (23-27)
[2017-05-10 03:32] LABS: ABG PH 7.205 (7.35-7.45)
[2017-05-10] MEDS: INSULIN LISPRO 100 UNIT/ML SUBCUT SCH ×4 (05:28→23:40)
[2017-05-10 06:05] LABS: Basophils # 0.1 10*3/uL (0.0-0.2); Basophils % 0.5 % (0.0-0.8); Eosinophils % 0.1 % (0.00-10.9); Hematocrit 38.1 VOL% (42.0-52.0); Hemoglobin 12.7 GM/DL (14.0-18.0); Immature Granulocytes Absolute 1.02 #; Lymphocytes # 0.6 10*3/uL (1.4-4.0); Lymphocytes % 3.9 % (21.2-54.2); Mean Corpuscular HGB Conc 33.3 GM/DL (32-36); Mean Corpuscular Hemoglobin 33 PG (27-34); Mean Corpuscular Volume 97.9 FL (87-102); Mean Platelet Volume 11.7 FL (9.6-12.0); Monocytes # 1.2 10*3/uL (0.11-0.8); Monocytes % 8.1 % (1.7-12.7); NRBC # 0.48 10*3/uL; Neutrophils # 11.8 10*3/uL (1.4-7.4); Neutrophils % 80.4 % (38.7-73.9); Platelet Count 248 T/CUMM (130-400); Red Blood Count 3.89 MC/CUMM (3.8-5.5); Red Cell Distribution Width 13.2 % (9.3-17.3); White Blood Count 14.7 T/CUMM (4-12)
[2017-05-10 07:01] LABS: Band Neutrophils 9 % (0-10); Giant Platelets Few; Lymphocytes 3 % (20-55); Myelocytes 2 %; Nucleated Red Blood Cells 3 (0-5); Platelet Estimate Adequate; Segmented Neutrophils 77 % (50-85); Total Cells Counted 100
[2017-05-10] MEDS: HEPARIN DRIP 25,000 UNITS/500 ML PREMIX IV SCH ×2 (08:00→22:32)
[2017-05-10 08:21] LABS: Albumin 2.8 G/DL (3.4-5.0); Bilirubin,Total 0.8 MG/DL (0.2-1.0); Osmolality,Calculated 299.8 MOS/KG (273-304)
[2017-05-10 08:23] LABS: Calcium 7.3 MG/DL (8.5-10.1)
[2017-05-10 08:24] LABS: Potassium 6.2 MMOL/L (3.5-5.1)
[2017-05-10] MEDS ORDERED: SODIUM POLYSTYRENE SULFATE 15 GM/60 ML BOTTLE PO ONE (09:52)
[2017-05-10] MEDS ORDERED: SODIUM CHLORIDE 0.9% 500 ML IV ONE (09:53)
[2017-05-10] MEDS: fentaNYL INJ 1,250 MCG in SODIUM CHLORIDE 0.9% 225 ML IV SCH ×2 (10:34→23:26)
[2017-05-10] MEDS ORDERED: HALOPERIDOL 5 MG/ML AMP IM PRN (10:34)
[2017-05-10] MEDS: ASCORBIC ACID 500 MG TABLET PO SCH ×2 (10:35→22:03)
[2017-05-10] MEDS: FOLIC ACID 1 MG TABLET PO SCH ×2 (10:35→22:03)
[2017-05-10] MEDS: MULTIVITAMIN LIQUID (CENTRUM) 60 ML BOTTLE PO SCH (10:35)
[2017-05-10] MEDS: ASPIRIN EC 81 MG TABLET PO SCH (10:35)
[2017-05-10] MEDS: CLOPIDOGREL 75 MG TABLET PO SCH (10:35)
[2017-05-10] MEDS: PANTOPRAZOLE 40 MG VIAL IV SCH (10:35)
[2017-05-10 11:50] LABS: Hepatitis A Ab IgM Quant 0.08 Index; Hepatitis A Ab IgM Result Negative (Negative); Hepatitis B Core IgM Quant 0.17 Index; Hepatitis B Core IgM Result Negative (Negative); Hepatitis C Virus Ab Quant 0.04 Index; Hepatitis C Virus Ab Result Negative (Negative)
[2017-05-10 13:51] LABS: Calcium 7.1 MG/DL (8.5-10.1); Osmolality,Calculated 304.8 MOS/KG (273-304)
[2017-05-10 13:55] LABS: Potassium 7.1 MMOL/L (3.5-5.1)
[2017-05-10] MEDS: SODIUM BICARB INJ 100 MEQ in SODIUM CHLORIDE 0.45% 1,000 ML IV SCH (14:09)
[2017-05-10] MEDS: DIGOXIN 0.125 MG TABLET PO SCH (14:11)
[2017-05-10] MEDS ORDERED: SODIUM BICARBONATE 50 MEQ/50 ML SYRINGE IV STA (14:18)
[2017-05-10] MEDS ORDERED: SODIUM BICARBONATE 50 MEQ/50 ML SYRINGE IV ONE (14:31)
[2017-05-10] MEDS: DEXTROSE 5% 100 ML IV SCH ×2 (14:46→14:47)
[2017-05-10] MEDS ORDERED: CALCIUM GLUCONATE 1,000 MG in SODIUM CHLORIDE 0.9% 100 ML IV ONE (14:56)
[2017-05-10] MEDS ORDERED: FUROSEMIDE 100 MG/10 ML VIAL IV ONE (14:58)
[2017-05-10] MEDS: CLORAZEPATE 7.5 MG TABLET PO SCH ×2 (16:54→22:03)
[2017-05-10] MEDS ORDERED: PHENYLEPHRINE DRIP 40 MG/250 ML PREMIX IV ONE (18:56)
[2017-05-10] MEDS: PHENYLEPHRINE DRIP 40 MG/250 ML PREMIX IV SCH (19:05)
[2017-05-10] MEDS ORDERED: HEPARIN 10,000 UNIT/10 ML VIAL IV SCH (20:00)
[2017-05-10] MEDS: SODIUM CHLORIDE 0.9% 1,000 ML IV SCH (22:59)
[2017-05-11] MEDS: LEVALBUTEROL 0.63 MG/3 ML NEB RESP TX SCH ×4 (00:15→20:16)
[2017-05-11] MEDS: SODIUM BICARB INJ 100 MEQ in SODIUM CHLORIDE 0.45% 1,000 ML IV SCH ×2 (01:08→19:02)
[2017-05-11] MEDS: PROPOFOL 1,000 MG/100 ML BOTTLE IV SCH ×5 (02:08→22:52)
[2017-05-11 04:38] LABS: ABG Base Excess -3.2 MMOL/L (-2.5-2.5); ABG HCO3 21.8 MMOL/L (20-26); ABG Oxygen Saturation 99.2 % (95-100); ABG PCO2 51.4 MM HG (35-48); ABG PH 7.287 (7.35-7.45); ABG TCO2 20.8 MMOL/L (23-27); Allen Test Positive; Pt O2 Delivery Device Ventilator
[2017-05-11 06:16] LABS: Albumin 2.2 G/DL (3.4-5.0); Bilirubin,Total 0.8 MG/DL (0.2-1.0); Calcium 7.8 MG/DL (8.5-10.1); Osmolality,Calculated 301.7 MOS/KG (273-304); Potassium 4.8 MMOL/L (3.5-5.1); Total Protein 5.1 G/DL (6.4-8.3)
[2017-05-11] MEDS: INSULIN LISPRO 100 UNIT/ML SUBCUT SCH ×3 (06:17→19:07)
[2017-05-11 06:55] LABS: Basophils % 0.3 % (0.0-0.8); Hemoglobin 11.6 GM/DL (14.0-18.0); Immature Granulocytes % 7.3 %; Immature Granulocytes Absolute 0.98 #; Lymphocytes # 0.5 10*3/uL (1.4-4.0); Lymphocytes % 3.8 % (21.2-54.2); Mean Corpuscular HGB Conc 34.1 GM/DL (32-36); Mean Corpuscular Hemoglobin 33 PG (27-34); Mean Corpuscular Volume 96.3 FL (87-102); Mean Platelet Volume 11.2 FL (9.6-12.0); Monocytes # 0.8 10*3/uL (0.11-0.8); Monocytes % 6.2 % (1.7-12.7); NRBC # 0.25 10*3/uL; Neutrophils % 82.4 % (38.7-73.9); Platelet Count 239 T/CUMM (130-400); Red Blood Count 3.53 MC/CUMM (3.8-5.5); Red Cell Distribution Width 13.2 % (9.3-17.3); White Blood Count 13.4 T/CUMM (4-12)
[2017-05-11 07:20] LABS: Hypochromasia Slight
[2017-05-11 07:21] LABS: Microcytosis Slight; Platelet Estimate Normal
[2017-05-11] MEDS: ASCORBIC ACID 500 MG TABLET PO SCH ×2 (09:20→22:06)
[2017-05-11] MEDS: ASPIRIN EC 81 MG TABLET PO SCH (09:20)
[2017-05-11] MEDS: MULTIVITAMIN LIQUID (CENTRUM) 60 ML BOTTLE PO SCH (09:20)
[2017-05-11] MEDS: FOLIC ACID 1 MG TABLET PO SCH ×2 (09:20→22:07)
[2017-05-11] MEDS: CLORAZEPATE 7.5 MG TABLET PO SCH ×3 (09:20→22:06)
[2017-05-11] MEDS: CLOPIDOGREL 75 MG TABLET PO SCH (09:20)
[2017-05-11] MEDS: PANTOPRAZOLE 40 MG VIAL IV SCH (09:32)
[2017-05-11] MEDS: CARVEDILOL 3.125 MG TABLET PO SCH ×2 (09:50→22:07)
[2017-05-11] MEDS: methylPREDNISolone SOD SUC 40 MG/1 ML VIAL IV SCH ×2 (09:50→19:07)
[2017-05-11] MEDS: PHENYLEPHRINE DRIP 40 MG/250 ML PREMIX IV SCH ×2 (12:16→23:18)
[2017-05-11] MEDS: LEVOFLOXACIN INJ 250 MG in PREMIX 1 EACH IV SCH (12:37)
[2017-05-11] MEDS: fentaNYL INJ 1,250 MCG in SODIUM CHLORIDE 0.9% 225 ML IV SCH (12:58)
[2017-05-11] MEDS ORDERED: ZINC OXIDE PASTE 113 GM TUBE TOP PRN (16:31)
[2017-05-11] MEDS: SODIUM CHLORIDE 0.9% 1,000 ML IV SCH ×2 (19:13→20:35)
[2017-05-12] MEDS: INSULIN LISPRO 100 UNIT/ML SUBCUT SCH ×4 (00:33→18:16)
[2017-05-12] MEDS: fentaNYL INJ 1,250 MCG in SODIUM CHLORIDE 0.9% 225 ML IV SCH ×2 (01:30→14:01)
[2017-05-12] MEDS: LEVALBUTEROL 0.63 MG/3 ML NEB RESP TX SCH ×4 (02:09→20:03)
[2017-05-12] MEDS: methylPREDNISolone SOD SUC 40 MG/1 ML VIAL IV SCH ×3 (03:09→18:39)
[2017-05-12 03:52] LABS: ABG Base Excess -7.4 MMOL/L (-2.5-2.5); ABG HCO3 21.7 MMOL/L (20-26); ABG Oxygen Saturation 96.2 % (95-100); ABG PCO2 60.5 MM HG (35-48); ABG PO2 105.7 MM HG (80-95); ABG TCO2 23.5 MMOL/L (23-27)
[2017-05-12 03:54] LABS: ABG PH 7.172 (7.35-7.45)
[2017-05-12] MEDS: PROPOFOL 1,000 MG/100 ML BOTTLE IV SCH ×5 (04:04→22:29)
[2017-05-12 05:36] LABS: Basophils % 0.3 % (0.0-0.8); Hematocrit 36.8 VOL% (42.0-52.0); Immature Granulocytes % 11.1 %; Lymphocytes # 0.4 10*3/uL (1.4-4.0); Lymphocytes % 3.4 % (21.2-54.2); Mean Corpuscular HGB Conc 32.6 GM/DL (32-36); Mean Corpuscular Hemoglobin 32 PG (27-34); Mean Corpuscular Volume 97.6 FL (87-102); Monocytes # 0.5 10*3/uL (0.11-0.8); Monocytes % 3.6 % (1.7-12.7); NRBC # 0.22 10*3/uL; Neutrophils # 10.3 10*3/uL (1.4-7.4); Neutrophils % 81.6 % (38.7-73.9); Platelet Count 244 T/CUMM (130-400); Red Blood Count 3.77 MC/CUMM (3.8-5.5); Red Cell Distribution Width 13.3 % (9.3-17.3); White Blood Count 12.7 T/CUMM (4-12)
[2017-05-12 06:08] LABS: Band Neutrophils 8 % (0-10); Giant Platelets Few; Lymphocytes 3 % (20-55); Metamyelocytes 1 %; Myelocytes 1 %; Nucleated Red Blood Cells 2 (0-5); Platelet Estimate Adequate; Segmented Neutrophils 84 % (50-85); Total Cells Counted 100
[2017-05-12 06:09] LABS: Microcytosis Slight
[2017-05-12 06:11] LABS: Albumin 2.1 G/DL (3.4-5.0); Bilirubin,Total 0.7 MG/DL (0.2-1.0); Calcium 7.3 MG/DL (8.5-10.1); Osmolality,Calculated 319.5 MOS/KG (273-304); Total Protein 5.6 G/DL (6.4-8.3)
[2017-05-12 06:14] LABS: Potassium 6.4 MMOL/L (3.5-5.1)
[2017-05-12 06:33] LABS: Magnesium 3.6 MG/DL (1.8-2.4); Prealbumin 11.3 MG/DL (20-40)
[2017-05-12] MEDS: PANTOPRAZOLE 40 MG VIAL IV SCH (09:16)
[2017-05-12] MEDS: ASPIRIN 325 MG TABLET PO SCH (09:17)
[2017-05-12] MEDS: CLOPIDOGREL 75 MG TABLET PO SCH (09:17)
[2017-05-12] MEDS: CARVEDILOL 3.125 MG TABLET PO SCH ×2 (09:18→22:42)
[2017-05-12] MEDS: CLORAZEPATE 7.5 MG TABLET PO SCH ×3 (09:18→22:42)
[2017-05-12] MEDS: MULTIVITAMIN LIQUID (CENTRUM) 60 ML BOTTLE PO SCH (09:18)
[2017-05-12] MEDS: ASCORBIC ACID 500 MG TABLET PO SCH ×2 (09:18→22:42)
[2017-05-12] MEDS: FOLIC ACID 1 MG TABLET PO SCH ×2 (09:18→22:42)
[2017-05-12] MEDS: DILTIAZEM INJ 100 MG in SODIUM CHLORIDE 0.9% 100 ML IV SCH (11:02)
[2017-05-12] MEDS: PHENYLEPHRINE DRIP 40 MG/250 ML PREMIX IV SCH (23:15)
[2017-05-13] MEDS: INSULIN LISPRO 100 UNIT/ML SUBCUT SCH ×4 (00:34→18:26)
[2017-05-13] MEDS: LEVALBUTEROL 0.63 MG/3 ML NEB RESP TX SCH ×2 (00:51→08:19)
[2017-05-13] MEDS: fentaNYL INJ 1,250 MCG in SODIUM CHLORIDE 0.9% 225 ML IV SCH ×2 (03:00→17:28)
[2017-05-13] MEDS: methylPREDNISolone SOD SUC 40 MG/1 ML VIAL IV SCH ×3 (03:02→18:27)
[2017-05-13] MEDS: PROPOFOL 1,000 MG/100 ML BOTTLE IV SCH ×3 (03:30→17:02)
[2017-05-13 03:53] LABS: ABG Base Excess -8.9 MMOL/L (-2.5-2.5); ABG HCO3 17.3 MMOL/L (20-26); ABG Oxygen Saturation 98.5 % (95-100); ABG PCO2 53.5 MM HG (35-48); ABG TCO2 18.4 MMOL/L (23-27); Allen Test Positive; Pt O2 Delivery Device Ventilator
[2017-05-13 04:02] LABS: ABG PH 7.181 (7.35-7.45)
[2017-05-13 04:43] LABS: Basophils % 0.1 % (0.0-0.8); Hematocrit 34.4 VOL% (42.0-52.0); Hemoglobin 11.5 GM/DL (14.0-18.0); Immature Granulocytes % 12.2 %; Immature Granulocytes Absolute 1.73 #; Lymphocytes # 0.4 10*3/uL (1.4-4.0); Lymphocytes % 2.8 % (21.2-54.2); Mean Corpuscular HGB Conc 33.4 GM/DL (32-36); Mean Corpuscular Hemoglobin 32 PG (27-34); Mean Corpuscular Volume 96.6 FL (87-102); Mean Platelet Volume 11.1 FL (9.6-12.0); Monocytes # 0.7 10*3/uL (0.11-0.8); Monocytes % 4.7 % (1.7-12.7); NRBC # 0.25 10*3/uL; Neutrophils # 11.4 10*3/uL (1.4-7.4); Neutrophils % 80.2 % (38.7-73.9); Platelet Count 239 T/CUMM (130-400); Red Blood Count 3.56 MC/CUMM (3.8-5.5); Red Cell Distribution Width 13.3 % (9.3-17.3); White Blood Count 14.2 T/CUMM (4-12)
[2017-05-13 05:15] LABS: Band Neutrophils 12 % (0-10); Giant Platelets Few; Lymphocytes 2 % (20-55); Microcytosis Slight; Myelocytes 5 %; Nucleated Red Blood Cells 2 (0-5); Platelet Estimate Adequate; Segmented Neutrophils 75 % (50-85); Total Cells Counted 100
[2017-05-13 05:49] LABS: Albumin 1.9 G/DL (3.4-5.0); Bilirubin,Total 0.7 MG/DL (0.2-1.0); Calcium 6.8 MG/DL (8.5-10.1); Osmolality,Calculated 316.8 MOS/KG (273-304); Total Protein 5.4 G/DL (6.4-8.3)
[2017-05-13 05:54] LABS: Potassium 6.2 MMOL/L (3.5-5.1)
[2017-05-13] MEDS: PANTOPRAZOLE 40 MG VIAL IV SCH (08:41)
[2017-05-13] MEDS: MULTIVITAMIN LIQUID (CENTRUM) 60 ML BOTTLE PO SCH (08:41)
[2017-05-13] MEDS: CLOPIDOGREL 75 MG TABLET PO SCH (08:42)
[2017-05-13] MEDS: ASCORBIC ACID 500 MG TABLET PO SCH ×2 (08:42→21:55)
[2017-05-13] MEDS: CARVEDILOL 3.125 MG TABLET PO SCH (08:42)
[2017-05-13] MEDS: CLORAZEPATE 7.5 MG TABLET PO SCH ×3 (08:42→21:55)
[2017-05-13] MEDS: ASPIRIN 325 MG TABLET PO SCH (08:42)
[2017-05-13] MEDS: FOLIC ACID 1 MG TABLET PO SCH ×2 (08:42→21:55)
[2017-05-13] MEDS ORDERED: CALCIUM GLUCONATE 2,000 MG in SODIUM CHLORIDE 0.9% 100 ML IV PRN (09:13)
[2017-05-13] MEDS: DILTIAZEM INJ 100 MG in SODIUM CHLORIDE 0.9% 100 ML IV SCH (09:21)
[2017-05-13] MEDS: CARVEDILOL 6.25 MG TABLET PO SCH ×2 (11:28→21:55)
[2017-05-13] MEDS: LEVOFLOXACIN INJ 250 MG in PREMIX 1 EACH IV SCH (11:29)
[2017-05-13] MEDS: ALBUTEROL/IPRATROPIUM 3 ML NEB RESP TX SCH ×3 (11:50→19:55)
[2017-05-14] MEDS: ALBUTEROL/IPRATROPIUM 3 ML NEB RESP TX SCH ×7 (01:06→23:31)
[2017-05-14] MEDS: INSULIN LISPRO 100 UNIT/ML SUBCUT SCH ×4 (01:13→18:18)
[2017-05-14] MEDS: methylPREDNISolone SOD SUC 40 MG/1 ML VIAL IV SCH ×3 (04:40→18:18)
[2017-05-14 05:03] LABS: ABG Base Excess -8.2 MMOL/L (-2.5-2.5); ABG HCO3 17.8 MMOL/L (20-26); ABG Oxygen Saturation 98.4 % (95-100); ABG PCO2 56.1 MM HG (35-48); ABG TCO2 19.4 MMOL/L (23-27); Pt O2 Delivery Device Ventilator
[2017-05-14 05:08] LABS: ABG PH 7.178 (7.35-7.45)
[2017-05-14 05:34] LABS: Basophils # 0.1 10*3/uL (0.0-0.2); Basophils % 0.3 % (0.0-0.8); Hematocrit 36.1 VOL% (42.0-52.0); Immature Granulocytes % 9.2 %; Immature Granulocytes Absolute 1.62 #; Lymphocytes # 0.6 10*3/uL (1.4-4.0); Lymphocytes % 3.3 % (21.2-54.2); Mean Corpuscular HGB Conc 33.2 GM/DL (32-36); Mean Corpuscular Hemoglobin 33 PG (27-34); Mean Corpuscular Volume 98.1 FL (87-102); Mean Platelet Volume 10.8 FL (9.6-12.0); Monocytes # 0.7 10*3/uL (0.11-0.8); Monocytes % 3.9 % (1.7-12.7); NRBC # 0.23 10*3/uL; Neutrophils # 14.6 10*3/uL (1.4-7.4); Neutrophils % 83.3 % (38.7-73.9); Platelet Count 228 T/CUMM (130-400); Red Blood Count 3.68 MC/CUMM (3.8-5.5); Red Cell Distribution Width 13.3 % (9.3-17.3); White Blood Count 17.5 T/CUMM (4-12)
[2017-05-14 06:05] LABS: Band Neutrophils 11 % (0-10); Lymphocytes 7 % (20-55); Myelocytes 1 %; Nucleated Red Blood Cells 1 (0-5); Platelet Estimate Adequate; Segmented Neutrophils 79 % (50-85); Total Cells Counted 100
[2017-05-14 06:06] LABS: Giant Platelets Few; Hypochromasia Slight; Microcytosis Slight
[2017-05-14 06:15] LABS: Calcium 6.2 MG/DL (8.5-10.1); Magnesium 3.2 MG/DL (1.8-2.4); Osmolality,Calculated 318.8 MOS/KG (273-304)
[2017-05-14] MEDS ORDERED: CARVEDILOL 6.25 MG TABLET PO ONE (06:15)
[2017-05-14 06:19] LABS: Potassium 6.3 MMOL/L (3.5-5.1)
[2017-05-14] MEDS ORDERED: METOPROLOL TARTRATE 5 MG/5 ML VIAL IV ONE (06:34)
[2017-05-14] MEDS: PROPOFOL 1,000 MG/100 ML BOTTLE IV SCH ×3 (06:47→22:04)
[2017-05-14] MEDS: fentaNYL INJ 1,250 MCG in SODIUM CHLORIDE 0.9% 225 ML IV SCH ×3 (07:20→22:19)
[2017-05-14] MEDS: CLINDAMYCIN INJ 300 MG in PREMIX 1 EACH IV SCH ×2 (07:44→15:43)
[2017-05-14] MEDS: ASPIRIN 325 MG TABLET PO SCH (08:06)
[2017-05-14] MEDS: ASCORBIC ACID 500 MG TABLET PO SCH ×2 (08:06→22:03)
[2017-05-14] MEDS: PANTOPRAZOLE 40 MG VIAL IV SCH (08:07)
[2017-05-14] MEDS: FOLIC ACID 1 MG TABLET PO SCH ×2 (08:07→22:04)
[2017-05-14] MEDS: CLOPIDOGREL 75 MG TABLET PO SCH (08:07)
[2017-05-14] MEDS: CARVEDILOL 12.5 MG TABLET PO SCH ×2 (08:07→22:04)
[2017-05-14] MEDS: CLORAZEPATE 7.5 MG TABLET PO SCH ×3 (08:07→22:04)
[2017-05-14] MEDS: MULTIVITAMIN LIQUID (CENTRUM) 60 ML BOTTLE PO SCH (08:08)
[2017-05-14 10:07] LABS: Albumin 1.9 G/DL (3.4-5.0); Bilirubin,Direct 0.22 MG/DL (0.0-0.20); Bilirubin,Indirect 0.4 MG/DL (0.0-1.0); Bilirubin,Total 0.6 MG/DL (0.2-1.0); Total Protein 5.3 G/DL (6.4-8.3)
[2017-05-15] MEDS: CLINDAMYCIN INJ 300 MG in PREMIX 1 EACH IV SCH ×2 (00:15→07:02)
[2017-05-15] MEDS: INSULIN LISPRO 100 UNIT/ML SUBCUT SCH ×2 (02:51→07:01)
[2017-05-15] MEDS: ALBUTEROL/IPRATROPIUM 3 ML NEB RESP TX SCH ×2 (03:33→07:28)
[2017-05-15 04:11] LABS: Allen Test Positive; Pt O2 Delivery Device Ventilator
[2017-05-15 04:13] LABS: ABG Base Excess -6.7 MMOL/L (-2.5-2.5); ABG HCO3 21.9 MMOL/L (20-26); ABG PCO2 57.8 MM HG (35-48); ABG PO2 94.1 MM HG (80-95); ABG TCO2 23.7 MMOL/L (23-27)
[2017-05-15 04:18] LABS: ABG PH 7.196 (7.35-7.45)
[2017-05-15] MEDS ORDERED: METOPROLOL TARTRATE 5 MG/5 ML VIAL IV ONE (04:50)
[2017-05-15] MEDS: methylPREDNISolone SOD SUC 40 MG/1 ML VIAL IV SCH (05:03)
[2017-05-15 05:43] LABS: Calcium 6.7 MG/DL (8.5-10.1); Magnesium 3.4 MG/DL (1.8-2.4); Osmolality,Calculated 316.7 MOS/KG (273-304)
[2017-05-15 05:46] LABS: Potassium 6.6 MMOL/L (3.5-5.1)
[2017-05-15 05:49] LABS: Basophils # 0.1 10*3/uL (0.0-0.2); Basophils % 0.2 % (0.0-0.8); Hematocrit 34.3 VOL% (42.0-52.0); Hemoglobin 11.4 GM/DL (14.0-18.0); Immature Granulocytes % 8.9 %; Immature Granulocytes Absolute 1.88 #; Lymphocytes # 0.6 10*3/uL (1.4-4.0); Lymphocytes % 2.6 % (21.2-54.2); Mean Corpuscular HGB Conc 33.2 GM/DL (32-36); Mean Corpuscular Hemoglobin 32 PG (27-34); Mean Corpuscular Volume 96.6 FL (87-102); Mean Platelet Volume 11.3 FL (9.6-12.0); Monocytes # 0.7 10*3/uL (0.11-0.8); Monocytes % 3.3 % (1.7-12.7); NRBC # 0.13 10*3/uL; Platelet Count 205 T/CUMM (130-400); Red Blood Count 3.55 MC/CUMM (3.8-5.5); Red Cell Distribution Width 13.3 % (9.3-17.3); White Blood Count 21.2 T/CUMM (4-12)
[2017-05-15 06:10] LABS: Band Neutrophils 12 % (0-10); Giant Platelets Few; Lymphocytes 3 % (20-55); Microcytosis Slight; Nucleated Red Blood Cells 2 (0-5); Platelet Estimate Adequate; Segmented Neutrophils 81 % (50-85); Total Cells Counted 100
[2017-05-15] MEDS: PROPOFOL 1,000 MG/100 ML BOTTLE IV SCH (06:19)
[2017-05-15] MEDS ORDERED: AMIODARONE 150 MG/3 ML VIAL ONE (08:23)
[2017-05-15 09:53] VITALS: BP 107/70
== END 2017-05-15 08:40 | disposition expired | DRG 246 ==
LOC: EDUNIT# → EDBD → N.ED 07:34 → N.EDINP 10:40 → N.TELES 12:58 → N.CC 15:49
PROVIDERS: ADMIT Internal Medicine Cardiovascular Disease; ATTEND Internal Medicine Cardiovascular Disease
PROC: CLCCHCL (ICD-10-PCS; 2017-05-07 13:15)